=== PATIENT | female | born 1990 | race Caucasian/White ===

== ENCOUNTER → 2022-12-12 | Outpatient (CLI) | payer MEDICAID, SELFPAY ==
[2022-12-12 10:20] LABS: Absolute Lymphocyte Count 1.75 X10^3/uL (0.83-4.51); Absolute Neutrophil Count 3.5 X10^3/uL (2.0-7.7); Basophil# 0.05 X10^3/uL; Basophil% 0.9 % (0-1); Eosinophil# 0.06 X10^3/uL; Hematocrit 42.9 % (37-47); Hemoglobin 13.4 g/dL (12.0-15.0); Lymphocyte # 1.75 X10^3/ul (0.83-4.51); Lymphocyte % 29.8 % (19-41); Mean Corp Hgb Conc 31.2 g/dL (32-36); Mean Corpuscular Hgb 28.5 pg (27.0-32.0); Mean Corpuscular Volume 91.1 fL (81-99); Mean Platelet Vol. 9.9 fl (6.2-12.0); Monocyte# 0.51 X10^3/uL; Monocyte% 8.7 % (0-10); NRBC Flagged by Analyzer 0 % (0-5); Neutrophil # 3.49 X10^3/uL (2.7-7.7); Neutrophil % 59.3 % (47-70); Platelet Count 227 K/mm3 (150-450); RBC Distribution Width CV 14.6 % (11.6-14.6); RBC Distribution Width SD 49.4 fl (35.1-43.9); Red Blood Count 4.71 M/mm3 (4.2-5.4); White Blood Count 5.9 K/mm3 (4.4-11.0)
[2022-12-12 11:04] LABS: Vitamin D,25 Hydroxy 45.3 ng/mL
[2022-12-12 11:13] LABS: ALB/GLOB Ratio 0.9 RATIO (0.9-2.4); AST(SGOT) 17 U/L (15-37); Alanine Aminotransfer ALT/SGPT 21 U/L (13-56); Albumin, Serum 3.7 g/dL (3.2-5.0); Alkaline Phosphatase 58 U/L (45-117); Anion Gap 5 (5-15); BUN 12 mg/dL (7-18); Calcium,Total 8.9 mg/dL (8.5-10.1); Chloride 106 mmol/L (98-107); Cholesterol 193 mg/dL (200); Creatinine, Serum 0.92 mg/dL (0.55-1.02); EST Glomerular Filtration Rate 74 mL/min (>60); Est Glom Filt Rate - Afr Amer 90 mL/min (>60); Glucose 85 mg/dL (74-106); High Density Lipoprotein 58 mg/dL; Potassium 4.1 mmol/L (3.5-5.1); Protein, Total 7.7 g/dL (6.4-8.2); Sodium Level 136 mmol/L (136-145); Thyroid Stim Hormone (TSH) 3.32 uIU/mL (0.358-3.74); Triglycerides 87 mg/dL; Very Low Density Lipoprotein 17 mg/dL (5-40)
== END | disposition home or self-care (01) ==
PROVIDERS: PCP Family Medicine; Referring Provider Family Medicine; Visit Provider Family Medicine
DX: Z00.00 Encounter for general adult medical examination without abnormal findings (principal); Z13.1 Encounter for screening for diabetes mellitus; F41.9 Anxiety disorder, unspecified
CPT/HCPCS: 36415; 80053; 80061; 82306; 84443; 85025

== ENCOUNTER → 2023-10-10 | Outpatient (CLI) | payer MEDICAID, SELFPAY ==
--- NOTE | 2023-10-10 07:41 | US_ITS ---
STUDY: ABDOMINAL ULTRASOUND - RIGHT UPPER QUADRANT REASON FOR VISIT: Female, 33 years old Epigastric pain x 3 months TECHNIQUE: Ultrasound evaluation of the right upper quadrant was performed with real-time and static baxter-scale imaging. TECHNICAL QUALITY: Adequate. COMPARISON: None. FINDINGS: Liver: The liver measures 15.2 cm. There is normal echogenicity of the liver. The bile ducts are within normal limits. There is hepatic color flow. The direction of portal flow is hepatopetal. There is no demonstrated mass lesion. Gallbladder: Normal distended gallbladder. The gallbladder wall measures 1.9 mm. There is a negative sonographic Cisneros''s sign. There is no pericholecystic fluid. There are no gallstones. Common Bile Duct (C.B.D.): The common bile duct measures 2.7 mm. Pancreas: Normal size of the head, body and tail of the pancreas. There is normal echogenicity of the pancreas. There is no demonstrated pancreatic mass or cyst. Right Kidney: Normal size of the right kidney. The right kidney measures 10.7 cm x 5.6 x 4.9 cm. Normal renal cortex. The right cortex measures 1.5 cm. There is no demonstrated renal mass or cyst. There is no right hydronephrosis. US/Gallbladder IMPRESSION: Normal right upper quadrant ultrasound examination. Electronically Signed: Rito Becerril MD at 15:32 EDT ,
== END | disposition home or self-care (01) ==
LOC: US 07:34
PROVIDERS: PCP Family Medicine; Referring Provider Surgery; Visit Provider Surgery
DX: R10.13 Epigastric pain (principal)
CPT/HCPCS: 76705

== ENCOUNTER 2023-10-30 08:08 | Day surgery (SDC) | payer MEDICAID, SELFPAY ==
[2023-10-30] VITALS (8 sets, daily range): BP systolic 97–110; BP diastolic 64–74; PULSE 71–114; RESP 16–20; TEMP 36.8–37; O2SAT 96–100; BMI 23.0
--- NOTE | 2023-10-30 | GASB_PTH ---
PATIENT: JACY CARROLL LOC: EN U#:[id number] AGE/SX: 33/F ROOM: RE10/30/[address]: Dr. Percy Mccauley MD : 1990 BED: DIS: 10/30/2023 SPEC #: [id number] RECD: 10/30/23 12:23 STATUS: EMIR ILIANA #: [id number] PITER: 10/30/23 00:[address]: Percy Mccauley DEPT: SURGICAL PATHOLOGY RECD BY: Hayes Deleon ENTERED: 10/30/23 12:23 SP TYPE: Gastric Bx OTHR DR: Karen Black MD Tissues: Gastric mucous membrane Procedures: Surgery Specimen Level IV HEADER OPERATION: EGD with biopsy PRE-OP DIAGNOSIS: Epigastric pain TISSUE SUBMITTED: Antrum biopsy MICROSCOPIC DIAGNOSIS Gastric antrum, biopsy: Mild chronic inflammation. AM. 10/31/2023 COMMENT The results of immunohistochemistry for Helicobacter pylori will be reported separately ([id number]). MICROSCOPIC DESCRIPTION Slides are reviewed. GROSS DESCRIPTION Received in fixative is one container labeled with the patient's name and designated Antrum biopsy. The specimen consists of one irregular fragment of light zendejas soft tissue that measures 0.3 x 0.3 x 0.1 cm. The specimen is totally submitted in one cassette. 10/30/2023 TC:3 CPT:44525
[2023-10-30 08:38] LABS: Internal QC Validated? YES +Cl - CLEAR BKGD; Pregnancy, Urine Negative Negative
[2023-10-30] MEDS: Lactated Ringers 1,000 ML 15 ML IV (08:38)
--- NOTE | 2023-10-30 08:48 | PCM.PRE.AN2 ---
ASA Classification* ASA Classification ASA Classification: 2 Assessment & Plan Anesthesia* Anesthesia Assessment Anesthesia Assessment: Discussed sedation and/or anesthesia options, risks, benefits, and alternatives with patient/parents/legal guardian/POA. Questions invited. The patient/parents/legal guardian/POA seems to understand and agrees to proceed with anesthesia plan. Reviewed the physical assessment, medical history, allergy history and patient home medications list prior to surgery/procedure/anesthetic and documented any changes. Performed airway and anesthesia risk assessments. Anesthesia Type Anesthesia Type: MAC (see written pre anesthesia record for full assessment) Anesthesia Focused Assessment* Temperature: 98.2 F Pulse Rate: 71 Blood Pressure: 106/74 Respiratory Rate: 16 Pulse Ox: 100 Airway Assessment Mouth opens: >3 cm Mallampati Score: II Focused Labs Anesthesia Preop lab: CBC WBC 5.9 K/mm3 (4.4-11.0) 12/12/22 09:35 RBC 4.71 M/mm3 (4.2-5.4) 12/12/22 09:35 Hgb 13.4 g/dL (12.0-15.0) 12/12/22 09:35 Hct 42.9 % (37-47) 12/12/22 09:35 Plt Count 227 K/mm3 (150-450) 12/12/22 09:35 CHEMISTRY Potassium 4.1 mmol/L (3.5-5.1) 12/12/22 09:35 Sodium 136 mmol/L (136-145) 12/12/22 09:35 BUN 12 mg/dL (7-18) 12/12/22 09:35 Creatinine 0.92 mg/dL (0.55-1.02) 12/12/22 09:35 Glucose 85 mg/dL (74-106) 12/12/22 09:35 TSH 3.32 uIU/mL (0.358-3.74) 12/12/22 09:35 COAG Urine Test Negative Negative 10/30/23 08:22 Pre-Assessment Diagnosis/Proposed Procedure Planned Operative Procedure(s): EGD Anesthesia History Anesthesia History - senior research consultant: Anesthesia History - senior research consultant Hx Hospitalization No 10/24/23 10:54 Any Problems With Anesthesia No 10/24/23 10:54 Cholinesterase deficiency No 10/24/23 10:54 You/Your Family Experience No 10/24/23 10:54 fever (hyperthermia) with Relationship Recent Exposure to Contagious No 10/30/23 08:29 Disease Does patient have nerve No 10/24/23 10:54 stimulator Patient instructed to have device shut off --Does patient have Pacemaker No 10/30/23 08:29 or ICD? When Was Last Pacemaker Check QUESTION #4 FULL TEXT: You/Your Family Experience fever (hyperthermia) with Anesthesia Last Oral Intake Last Oral intake: Last Oral Intake NPO since 00:00 10/30/23 08:29 Meds taken in AM with sips of water? Meds patient instructed to take am of surgery PONV PONV - senior research consultant: PONV - senior research consultant Female Yes 10/24/23 10:54 HX of Motion Sickness Yes 10/24/23 10:54 HX of N/V After Surgery No 10/24/23 10:54 Non-Smoker Yes 10/24/23 10:54 Duration of Surgery greater No 10/24/23 10:54 than 60 minutes Number of Risk Factors 3 10/24/23 10:54 PONV Score Moderate Risk 10/24/23 10:54 Height & Weight Height & Weight: Anesthesia: Height & Weight Height 5 ft 3 in 10/30/23 08:29 Weight: 58.967 kg 10/30/23 08:29 Body Mass Index (BMI) 23.0 10/30/23 08:29 Respiratory Assessment Respiratory Assessment - senior research consultant: Respiratory Tract Infection Hx - senior research consultant Hx Respiratory Tract Infection No 10/24/23 10:54 STOP Sleep Apnea STOP Sleep Apnea - senior research consultant: STOP Sleep Apnea - senior research consultant Hx Hypertension No 10/24/23 10:54 Hx Sleep Apnea No 10/24/23 10:54 CPAP BIPAP Do you snore loudly (louder No 10/24/23 10:54 than talking or can be heard Do you often feel tired/ No 10/24/23 10:54 fatigued/ sleepy during daytime? Has anyone observed you stop No 10/24/23 10:54 breathing during sleep? STOP Results Negative 10/24/23 10:54 QUESTION #5 FULL TEXT : Do you snore loudly (louder than talking or can be heard through closed doors)? 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 Specify any problems Hx of Preganancy in last 3 No 10/24/23 10:54 Months Nurse Filling Out Transfusion VCHRISTIN 10/24/23 10:54 & Questions: Date: 10/24/23 10/24/23 10:54 Time: 10:56 10/24/23 10:54 Patient unable to answer at this time (ie. confused, unrespo /Reproduction History /Reproductive History - senior research consultant: /Reproductive Hx- senior research consultant Hx Now No 10/24/23 10:54 Gestational Age (in weeks): EDC: Hx Hx Para Hx Section SAB No 10/24/23 10:54 Active Medications Active Medications: Current Medications Generic Name Dose Route Start Last Admin Trade Name Freq PRN Reason Stop Dose Admin Lactated Ringer's 1,000 mls @ 15 mls/hr 10/30/23 08:15 10/30/23 08:38 IV 15 mls/hr .Q48H DON Administration PFSH Medical History Wears contact lenses Wears glasses Cancer Depression Anxiety History of ulceration Non-smoker Asthma History of deviated nasal septum Home Medications ?Medication ?Instructions ?Recorded ?Last Taken ?Type fluoxetine 40 mg capsule 40 mg PO DAILY 08/21/23 Unknown History ondansetron HCl 4 mg tablet 4 mg PO Q8H 08/21/23 Unknown History semaglutide (weight loss) 1 mg/0.5 1 mg subcut QWEEK 08/21/23 10/15/23 History mL subcutaneous pen injector albuterol sulfate 90 mcg/actuation 1 puff inhalation PRN wheezing 10/24/23 Unknown History aerosol inhaler Allergy/AdvReac Type Severity Reaction Status Date / Time Penicillins Allergy Severe Angioedema Verified 10/30/23 08:28 Family History Uncle Colon cancer Surgical History Hx of melanoma excision Hx of removal of cyst Social History Smoking Status: Never smoker Review of Systems (Anesthesia) ROS Narrative System reviewed and no additional complaints, except as documented.
--- NOTE | 2023-10-30 09:05 | HP.PCM_ITS ---
History and Physical Date of Admission: 10/30/23 Intake Vital Signs 09/17/2407:16 Height 5 ft 3 in Weight: 135 lb 6 oz BMI 24.0 BP 93/61 Blood Pressure Location Rt brachial Position Sitting Respiration 18 Pulse 55 L Pulse Source Monitor Temp 97.2 F L Temp Source Temporal Pulse Oximetry (%) 98 Oxygen Delivery Method room air Intake Visit Reasons: ABDOMINAL PAIN Chief Complaint: abdominal pain Booster Pump Oiler Required: No Is patient in pain?: Yes (constant abdominal pain ) Allergies Penicillins Allergy (Severe, Verified 09/17/23 08:17) Angioedema Medications ?Medication ?Instructions ?Recorded ?Confirmed ?Type fluoxetine 40 mg capsule 40 mg PO DAILY 08/21/23 09/17/23 History ondansetron HCl 4 mg tablet 4 mg PO Q8H 08/21/23 09/17/23 History semaglutide (weight loss) 1 mg/0.5 1 mg subcut QWEEK 08/21/23 09/17/23 History mL subcutaneous pen injector omeprazole 40 mg capsule,delayed 40 mg PO DAILY #60 caps 09/17/23 09/17/23 Rx release Have you fallen in the past year?: No PFSH Family History (Updated 09/17/23 @ 08:16 by Mariola Wynn LPN) Uncle Colon cancer HPI HPI HPI: Patient is a 33-year-old female who reports both upper epigastric pain and lower abdominal pain. She reports the pain does not have any new eating. She says it comes and goes. She said that she also did recently have black tarry stools and coffee-ground emesis. ROS General General: Yes weight change (loss) and fatigue; No appetite, colon cancer, breast cancer or weakness HEENT HEENT: Yes swollen glands; No difficulty swallowing, eye injury, eye surgery or hoarseness Endo Endocrine: No thyroid disease, diabetes mellitus, thyroid cancer, Hair loss, heat intolerance or cold intolerance Skin Skin: No rash or changing moles Musc Musculoskeletal: No back problems, arthritis, rheumatoid arthritis, gout or joint pain Cardio Cardiovascular: No murmur, pacemaker, heart disease, atrial fibrillation, high blood pressure, heart attack, heart stent, palpitations, shortness of breat with exertion or chest pain Psych Psychiatric: Yes depression and anxiety; No hearing voices Resp Respiratory: No shortness of breath, No sleep apnea, No cough, No COPD, Yes asthma, No emphysema and No wheezing Additional Details: exercise induced asthma Gastro Gastrointestinal: Yes abdominal pain, Yes nausea or vomiting, Yes diarrhea, Yes constipation, Yes blood in stool, No acid reflux, No hemorrhoids, Yes ulcers, No gallbladder problem and No black,tarry stools Alverto Hematologic: No blood thinners, No blood disorders, No bleeding, No anemia and No blood clots Neuro Neurologic: No numbness, No tingling and No weakness Exam Const General: cooperative Orientation: alert and oriented x3 HENMT Head: normal to inspection Neck Neck: normal visual inspection and full ROM Chest Chest palpation & inspection: normal inspection of the chest Resp Effort & Inspection: normal respiratory effort Auscultation: clear to auscultation bilaterally Cardio Rate: regular rate Rhythm: regular rhythm GI Inspection: non-distended Palpation: soft and nontender Skin General: no rashes or lesions noted Neuro General: patient alert and patient oriented x3 Extrem General: full ROM Psych Appearance: grossly normal Mental Status: mental status grossly normal Assessment and Plan Assessment and Plan (1) Epigastric pain: Status: Acute Plan: Patient is having a lot of epigastric pain and she did have coffee-ground emesis as well as black stools. She was started on Carafate but does not report this helped. I am starting her on a PPI immediately and I will also order a gallbladder ultrasound to ensure that this is not her gallbladder. We will plan for EGD to evaluate the stomach. I explained endoscopy in detail to the patient. I explained the risks including but not limited to stroke or heart attack with anesthesia, perforation of the GI tract, bleeding, infection. I explained that any of these could necessitate further emergency surgery. The patient understands and all questions were answered sufficiently. The patient wishes to proceed with procedure. Percy Mccauley MD Pager: [facility] [address] [place] [address], [address] [place] [address] Office: I have examined the patient and the H&P has been reviewed. There are no clinical changes since date of exam. The patient reports no improvement on a PPI. Her ultrasound of her gallbladder was normal.
--- NOTE | 2023-10-30 09:15 | IMM_PTH ---
PATIENT: JACY CARROLL LOC: EN U#:[id number] AGE/SX: 33/F ROOM: RE10/30/[address]: Dr. Percy Mccauley MD : 1990 BED: DIS: 10/30/2023 SPEC #: [id number] RECD: 10/30/23 12:19 STATUS: EMIR REDeepak #: [id number] PITER: 10/30/23 09:[address]: Percy Mccauley DEPT: IMMUNOHISTOCHEMISTRY RECD BY: Riley Lopez ENTERED: 10/30/23 12:19 SP TYPE: IMMUNO OTHR DR: Karen Black MD Tissues: Gastric mucous membrane Procedures: H Pylori (initial) PHYSICIAN & INSTITUTION [place] [id number] SPECIMEN INFORMATION: Tissue Source: Antrum biopsy Clinical Info: Epigastric pain Specimen Number: [id number] CPT code: 08393 METHODOLOGY: Deparaffinized sections of prefer/formalin-fixed tissue or PAP/DQ stained slides are incubated with monoclonal/polyclonal antibodies/oligonucleotide probes. Localization is made via biotin free immunoperoxidase method. Appropriate controls are performed and reacted as expected. Results on target cell population are indicated in the following table: RESULTS: ANTIBODY / CLONE RESULT H Pylori (polyclonal) negative These tests were developed and their performance characteristics determined by [facility]. They may not have been cleared or approved by the U.S. Food and Drug Administration. The FDA has determined that such clearance or approval is not necessary. The above immunohistochemical/dualISH markers are ordered and reviewed by the Pathologist. INTERPRETATION: Gastric antrum, biopsy: Negative for Helicobacter pylori organisms. 10/31/2023
--- NOTE | 2023-10-30 09:25 | OP.EGD_ITS ---
Patient Name: Sammie Guerrero Procedure Date: 10/30/2023 9:10 AM Date of : 1990 Age: 33 Procedure: Upper GI endoscopy Indications: Epigastric abdominal pain Providers: Percy Mccauley MD Medicines: Propofol per Anesthesia Patient Profile: This is a 33 year old female. Refer to note in patient chart for documentation of history and physical. Complications: No immediate complications. Procedure: Pre-Anesthesia Assessment: - Prior to the procedure, a History and Physical was performed, and patient medications and allergies were reviewed. The patient's tolerance of previous anesthesia was also reviewed. The risks and benefits of the procedure and the sedation options and risks were discussed with the patient. All questions were answered, and informed consent was obtained. Prior Anticoagulants: The patient has taken no anticoagulant or antiplatelet agents. After reviewing the risks and benefits, the patient was deemed in satisfactory condition to undergo the procedure. After obtaining informed consent, the endoscope was passed under direct vision. Throughout the procedure, the patient's blood pressure, pulse, and oxygen saturations were monitored continuously. The Endoscope was introduced through the mouth, and advanced to the second part of duodenum. The upper GI endoscopy was accomplished without difficulty. The patient tolerated the procedure well. Scope In: 9:19:17 AM Scope Out: 9:21:58 AM Total Procedure Duration Time 0 hours 2 minutes 41 seconds Findings: The esophagus was normal. The stomach was normal. The examined duodenum was normal. Biopsies were taken with a cold forceps in the gastric antrum for Helicobacter pylori testing. Impression: - Normal esophagus. - Normal stomach. - Normal examined duodenum. - No specimens collected. Recommendation: - Discharge patient to home. - Resume previous diet. - Continue present medications. - Perform CT scan (computed tomography) of the abdomen with contrast at appointment to be scheduled. Procedure Code(s): --- Professional --- 78218, Esophagogastroduodenoscopy, flexible, transoral; with biopsy, single or multiple Diagnosis Code(s): --- Professional --- R10.13, Epigastric pain CPT copyright 2021 [employer]. All rights reserved. The codes documented in this report are preliminary and upon outpatient coder review may be revised to meet current compliance requirements. Percy Mccauley MD 10/30/2023 9:24:26 AM This report has been signed electronically. Number of Addenda: 0 Note Initiated On: 10/30/2023 9:10 AM
--- NOTE | 2023-10-30 09:25 | OP.CCLET_ITS ---
10/30/2023 Karen Black Md Re : Upper GI endoscopy procedure for Sammie Pena Sofia This procedure was performed on Monday, October 30, 2023. My impressions and recommendations are as follows: Impressions : - Normal esophagus. - Normal stomach. - Normal examined duodenum. - No specimens collected. Recommendations : - Discharge patient to home. - Resume previous diet. - Continue present medications. - Perform CT scan (computed tomography) of the abdomen with contrast at appointment to be scheduled. My findings are described in the full procedure note, which is enclosed. If I can be of further assistance, please feel free to contact me at Doctor phone number(s): , Work: . Sincerely, Percy Mccauley MD 10/30/2023 9:24:26 AM This report has been signed electronically.
--- NOTE | 2023-10-30 09:32 | PCM.POST.ANE ---
Anesthesia: Postop Eval I Current Vital Signs Temperature: 98.6 F Pulse Rate: 114 Blood Pressure: 110/72 Respiratory Rate: 20 Pulse Ox: 100 Assessment Airway patent: Yes Spontaneous unlabored respirations: Yes nausea: No Vomiting: No Anesthesia Complication: No Fluid Hydration Crystalloid volume administer (ml): 400 Total IV fluid infused: 400 Progress Note Anesthesia document: Postop Eval 1 completed: Yes
[2023-10-30 10:25] LABS: Lipase 34 U/L (13-75)
--- NOTE | 2023-10-30 12:12 | POSTOPAN2_ITS ---
Anesthesia Postop Eval I Sum Postop Eval Completion status Anesthesia document: Postop Eval 1 completed: Yes Anesthesia Postop Eval I Summary Anesthesia Postop Eval I Summary: Anesthesia Postop Eval I: Assessment Summary Airway patent Yes 10/30/23 09:32 REDUCTION FURNACE OPERATOR HELPER.CSIR Spontaneous unlabored Yes 10/30/23 09:32 REDUCTION FURNACE OPERATOR HELPER.CSIR respirations Mental status nausea No 10/30/23 09:32 REDUCTION FURNACE OPERATOR HELPER.CSIR Vomiting No 10/30/23 09:32 REDUCTION FURNACE OPERATOR HELPER.CSIR Anesthesia Postop Eval I: Fluid Summary Crystalloid volume administer 400 10/30/23 09:32 REDUCTION FURNACE OPERATOR HELPER.CSIR (ml) Colloids volume administered ( ml) Blood Product volume administered (ml) Total IV fluid infused 400 10/30/23 09:32 REDUCTION FURNACE OPERATOR HELPER.CSIR Anesthesia Postop Eval I: Summary Notes Anesthesia Complication No 10/30/23 09:32 REDUCTION FURNACE OPERATOR HELPER.CSIR Anesthesia Complication Comment: Post-operative progress note Anesthesia: Postop Eval II Evaluation Mental status: Awake Pain Level: 0 nausea: No Vomiting: No
--- NOTE | 2023-10-30 12:12 | PCM.POSTANE2 ---
Anesthesia Postop Eval I Sum Postop Eval Completion status Anesthesia document: Postop Eval 1 completed: Yes Anesthesia Postop Eval I Summary Anesthesia Postop Eval I Summary: Anesthesia Postop Eval I: Assessment Summary Airway patent Yes 10/30/23 09:32 CAFETERIA WORKER.CSIR Spontaneous unlabored Yes 10/30/23 09:32 CAFETERIA WORKER.CSIR respirations Mental status nausea No 10/30/23 09:32 CAFETERIA WORKER.CSIR Vomiting No 10/30/23 09:32 CAFETERIA WORKER.CSIR Anesthesia Postop Eval I: Fluid Summary Crystalloid volume administer 400 10/30/23 09:32 CAFETERIA WORKER.CSIR (ml) Colloids volume administered ( ml) Blood Product volume administered (ml) Total IV fluid infused 400 10/30/23 09:32 CAFETERIA WORKER.CSIR Anesthesia Postop Eval I: Summary Notes Anesthesia Complication No 10/30/23 09:32 CAFETERIA WORKER.CSIR Anesthesia Complication Comment: Post-operative progress note Anesthesia: Postop Eval II Evaluation Mental status: Awake Pain Level: 0 nausea: No Vomiting: No
== END 2023-10-30 10:20 | disposition home or self-care (01) ==
LOC: EN 08:11 → AC 08:12
PROVIDERS: Anesthesiology; PCP Family Medicine; Referring Provider Family Medicine; Visit Provider Surgery
PROC: 0DJ08ZZ Inspection of Upper Intestinal Tract, Via Natural or Artificial Opening Endoscopic (ICD-10-PCS; CPT 43235; principal; 2023-10-30 09:10)
DX: K29.50 Unspecified chronic gastritis without bleeding (principal); F32.A Depression, unspecified; F41.9 Anxiety disorder, unspecified; Z79.85 Long-term (current) use of injectable non-insulin antidiabetic drugs; Z79.899 Other long term (current) drug therapy
CPT/HCPCS: 43239; 81025; 83690; 88305; 88342; J7120; J2405

== ENCOUNTER → 2024-11-20 | Outpatient (CLI) | payer OTHER, SELFPAY ==
[2024-11-20 12:37] LABS: Hematocrit 36.3 % (37-47); Hemoglobin 11.9 g/dL (12.0-15.0); Immature Granulocytes Count 0.010 X10^3/uL (0.0-0.0); Mean Corp Hgb Conc 32.8 g/dL (32-36); Mean Corpuscular Volume 87.5 fL (81-99); Mean Platelet Vol. 9.9 fl (6.2-12.0); NRBC Flagged by Analyzer 0 % (0-5); Platelet Count 228 K/mm3 (150-450); RBC Distribution Width CV 14.7 % (11.6-14.6); RBC Distribution Width SD 47.7 fl (35.1-43.9); Red Blood Count 4.15 M/mm3 (4.2-5.4); White Blood Count 4.7 K/mm3 (4.4-11.0)
[2024-11-20 15:51] LABS: AST(SGOT) 23 U/L (<=31); Alanine Aminotransfer ALT/SGPT 12 U/L (<=34); Albumin, Serum 4.1 g/dL (3.5-5.0); Alkaline Phosphatase 55 U/L (35-104); Anion Gap 11 (5-15); BUN 14 mg/dL (4-19); BUN/Creat Ratio 17.3 RATIO (10-20); Calcium,Total 8.9 mg/dL (7.6-11.0); Carbon Dioxide 24.4 mmol/L (21.0-32.0); Chloride 103 mmol/L (98-108); Cholesterol 169 mg/dL (<=200); Globulin 2.9 g/dL (2.2-4.2); Glucose 80 mg/dL (70-99); Low Density Lipoprotein Calc. 87 mg/dL; Potassium 4.2 mmol/L (3.3-5.1); Triglycerides 38 mg/dL; Very Low Density Lipoprotein 8 mg/dL (5-40); cholesterol:hdl ratio screen 2.27
[2024-11-20 16:14] LABS: Iron 35 ug/dL (50-170); Iron Binding Capacity,Total 405 ug/dL (250-450); Iron Binding Capacity,Unsat 370 ug/dL (228-428)
[2024-11-20 16:15] LABS: CORTISOL AM 7.61 ug/dL (6.02-18.40); Ferritin 15 ng/mL (22-378); Vitamin B12 601 pg/mL (180-914); Vitamin D,25 Hydroxy 42.5 ng/mL (30-100)
--- OUTSIDE RECORDS SUMMARY | 2024-11-20 18:53 | XMS RPT_ITS | CCD ---
Author Organization [facility] Care Team Providers Care Business Sales Consultant Name Role Phone Unavailable Primary Care Provider UnavailEILEEN Guzman Attending Unavailable Karen Gupta MD Primary Care Provider Karen Gupta MD Primary Care Provider Unavailable Primary Care Provider Unavailjavier e Karen Gupta Primary Care Provider [phone] Karen Gupta MD Primary Care Provider Karen Gupta MD Primary Care Provider CANDY, CHALON Primary Care Unavailable CANDY, CHALON Primary Care Unavailable Karen Gupta MD Primary Care Provider Candy, Chalon Primary Care Unavailable Candy, Chalon Referring Unavailable Calabretta, Percy Attending Unavailable Calabretta, Percy Attending Unavailable Candy, Chalon Primary Care Unavailable Calabretta, Percy Referring Unavailable Candy, Chalon Attending Unavailable Candy, Chalon Primary Care Unavailable Candy, Chalon Referring Unavailable Calabretta, Percy Attending Unavailable Candy, Chalon Primary Care Unavailable Calabretta, Percy Referring Unavailable Candy, Chalon Primary Care Unavailable Candy, Chalon Referring Unavailable Calabretta, Percy Attending Unavailable Candy, Chalon Referring Unavailable Calabretta, Percy Attending Unavailable Candy, Chalon Primary Care Unavailable Calabretta, Percy Consulting Unavailable Candy, Chalon Referring Unavailable Lois Arzola Attending Unavailable Candy, Chalon Primary Care Unavailable Unavailable Primary Care Provider UnavailKaren Montanez MD Primary Care Provider Karen Gupta MD Primary Care Provider SHARRI KOEHLER Attending Unavailable ZAKIASHARRI Corcoran Referring Unavailable [facility] Care Unavailable ZAKIASHARRI Corcoran Referring Unavailable CANDY, CHALON Primary Care Unavailable CANDY, CHALON Primary Care Unavailable DEANN JARVIS Attending Unavailable GOGO GRANDE Attending Unavailable [facility], [facility] Primary Care Unavailable GOGO CESPEDES Attending Unavaila ble CANDY, CHALON Primary Care Unavailable Allergies Allergy Classification Reported Allergen(s) Allergy Type Date of Onset Reaction(s) Facility Penicillins (antibiotic) (3 sources) Penicillin G Drug Allergy 7 Anaphylaxis [facility] (17 sources) Penicillin G Drug Allergy 7 Anaphylaxis [place], [place] (19 sources) Penicillin; Translations: [PENICILLIN] Drug Allergy 7 Other: See Comments [facility] (1 source) Penicillins Drug allergy (disorder) 4 [facility] (1 source) Penicillins Propensity to adverse reactions 9 [facility] Medications Current Medications Medication Drug Class(es) Dates Sig (Normalized) Sig (Original) acetaminophen 325 mg / HYDROcodone bitartrate 5 mg oral tablet (2 sources) Opioid Agonist Start: 10-08-2020 End: 10-13-2020 HYDROcodone-acetam inophen (NORCO) 5-325 MG per tablet Indications: Post-op pain Take 1 tablet by mouth every 6 hours as needed for Pain for up to 5 days. Intended supply: 5 days. Take lowest dose possible to manage pain 20 tablet 0 10/08/2020 10/13/2020 Active ALPRAZolam 0.25 mg disintegrating oral tablet (2 sources) Benzodiazepine Start: 10-08-2020 ALPRAZolam (NIRAVAM) dissolvable tablet 0.25 mg Start: 04-30-2019 ALPRAZolam (NI RAVAM) dissolvable tablet 0.25 mg atomoxetine 60 mg oral capsule (1 source) Norepinephrine Reuptake Inhibitor Start: 01-26-2009 atomoxetine hcl(STRATTERA 60 MG CAP) Take one(1) capsule daily. 0 01/26/2009 Active biotin 1 mg oral tablet (2 sources) take 1 tablet by mouth once daily Biotin 1000 MCG TABS Take 1 tablet by mouth daily 0 Active 24 hr buPROPion hydrochloride 150 mg extended release oral tablet (20 sources) Aminoketone Start: 04-06-2022 End: 05-10-2022 take 1 tablet by mouth once daily in the morning buPROPion XL (Wellbutrin XL) 150 MG 24 hr tablet TAKE 1 TABLET BY MOUTH EVERY DAY IN THE MORNING 30 tablet 3 05/10/2022 Active Start: 01-04-2022 End: 12-11-2022 take 1 tablet by mouth every twenty-four hours buPROPion XL (WELLBUTRIN XL) 150 mg 24 hr tablet Take 150 mg by mouth. 0 01/04/2022 12/11/2022 Discontinued (Other) Comment on above: Take 150 mg by mouth . busPIRone hydrochloride 5 mg oral tablet (10 sources) Start: 05-03-2022 End: 06-02-2022 busPIRone (BUSPAR) 5 mg tablet Take 10 mg by mouth. 0 05/03/2022 06/02/2022 Active Start: 02-02-2022 End: 05-03-2022 take 1 tablet by mouth three times daily busPIRone (Buspar) 5 MG tablet TAKE 1 TABLET BY MOUTH THREE TIMES A DAY 90 tablet 3 02/02/2022 05/03/2022 Discontinued (Reorder) Comment on above: Take 10 mg by mouth. calcium chloride 0.0014 meq/ml / potassium chloride 0.004 meq/ml / sodium chloride 0.103 meq/ml / sodium lactate 0.028 meq/ml injectable solution (2 sources) Start: 10-08-2020 lactated ringers infusion Start: 04-30-2019 lactated ringe rs infusion cefdinir 300 mg oral capsule (2 sources) Cephalosporin Antibacterial Start: 10-08-2020 End: 10-18-2020 take 1 capsule by mouth twice daily cefdinir (OMNICEF) 300 MG capsule Take 1 capsule by mouth 2 times daily for 10 days 20 capsule 0 10/08/2020 10/18/2020 Active codeine phosphate 2 mg/ml / guaiFENesin 20 mg/ml oral solution (1 source) Opioid Agonist Start: 02-09-2020 End: 02-12-2020 take 5 mL by mouth three times daily as needed for cough guaiFENesin-codein e (TUSSI-ORGANIDIN NR) 100-10 MG/5ML syrup Indications: Viral illness Take 5 mLs by mouth 3 times daily as needed for Cough for up to 3 days. 45 mL 0 02/09/2020 02/12/2020 Active COMPOUNDED PRESCRIPTION (1 source) Start: 01-26-2009 COMPOUNDED PRESCRIPTION Lo Seasonique 1 tablet daily 0 01/26/2009 Active doxycycline monohydrate 100 mg oral capsule (18 sources) Tetracycline-class Drug Start: 04-15-2023 End: 04-22-2023 take 1 capsule by mouth twice daily doxycycline monohydrate (MONODOX) 100 mg capsule Indications: URI with cough and congestion Take 1 capsule by mouth two times a day for 7 days. 14 capsule 0 04/15/2023 04/22/2023 Active Start: 05-11-2021 End: 06-23-2022 take 1 tablet by mouth twice daily doxycycline (Vibra-Tabs) 100 MG tablet Take 100 mg by mouth 2 times daily. 05/11/2021 Active Start: 06-03-2020 End: 10-08-2020 Doxycycline Hyclate 50 MG TA BS Indications: Acne vulgaris Take one tablet QD with food and water 30 tablet 3 06/03/2020 10/08/2020 Discontinued (Stop Taking at Discharge) Comment on above: Take 100 mg by mouth . Take 1 capsule by [facility] two times a day for 7 days. famotidine 20 mg oral tablet (3 sources) Histamine-2 Receptor Antagonist Start: 07-07-2023 End: 07-17-2023 take 1 tablet by mouth twice daily famotidine (PEPCID) 20 mg tablet Take 1 tablet by mouth two times a day for 10 days. 20 tablet 0 07/07/2023 07/17/2023 Active Start: 10-08-2020 End: 10-08-2020 famotidine (PEPCID) tablet 2 0 mg Start: 04-30-2019 End: 04-30-2019 famotidine (PEPCID) tablet 2 0 mg fluconazole 150 mg oral tablet (3 sources) Azole Antifungal Start: 07-09-2023 take 1 tablet by mouth every week fluconazole (DIFLUCAN) 150 mg tablet Indications: Vaginal yeast infection Take 1 tablet by mouth one time a week. repeat if needed in one week 2 tablet 07/09/2023 Active FLUoxetine 20 mg oral tablet (11 sources) Serotonin Reuptake Inhibitor Start: 01-25-2023 FLUoxetine HCl 20 mg tablet 01/25/2023 Active Start: 07-12-2021 End: 12-15-2021 take 1 capsule by mouth once daily FLUoxetine (PROZAC) 20 MG capsule TAKE 1 CAPSULE BY MOUTH EVERY DAY 90 capsule 1 11/24/2021 Active fluticasone propionate 0.05 mg/actuat metered dose nasal spray (5 sources) Corticosteroid Start: 07-08-2020 take 1 spray(s) nasal route once daily fluticasone (FLONASE) 50 MCG/ACT nasal spray Indications: Acute non-recurrent sinusitis, unspecified location 1 spray by Each Nostril route daily for 14 days 1 Bottle 0 07/08/2020 Active Start: 08-01-2018 End: 04-25-2019 fluticasone (FLONASE) 50 MCG /ACT nasal spray Indications: Viral URI 1 spray by Nasal route daily 1 Bottle 0 08/01/2018 04/25/2019 Discontinued (Therapy completed) 12 hr guaiFENesin 600 mg extended release oral tablet (3 sources) Start: 07-08-2020 take 1 tablet by mouth twice daily guaiFENesin (MUCINEX) 600 MG extended release tablet Indications: Acute non-recurrent sinusitis, unspecified location Take 1 tablet by mouth 2 times daily 20 tablet 0 07/08/2020 Active 1 ml hydrALAZINE hydrochloride 20 mg/ml injection (2 sources) Arteriolar Vasodilator Start: 10-08-2020 hydrALAZINE (APRESOLINE) injection 5 mg Start: 04-30-2019 hydrALAZINE (A PRESOLINE) injection 5 mg 1 ml HYDROmorphone hydrochloride 1 mg/ml cartridge (4 sources) Opioid Agonist Start: 10-08-2020 HYDROmorphone (DILAUDID) injection 0.5 mg Start: 10-08-2020 HYDROmorphone (DILAUDID) injection 0.25 mg Start: 04-30-2019 HYDROmorphone (DILAUDID) injection 0.5 mg Start: 04-30-2019 HYDROmorphone (DILAUDID) injection 0.25 mg hydrOXYzine hydrochloride 25 mg oral tablet (5 sources) Antihistamine Start: 05-03-2022 End: 06-02-2022 take 1 tablet by mouth twice daily hydrOXYzine HCl (Atarax) 25 MG tablet Take 1 tablet (25 mg) by mouth 2 times daily. 60 tablet 0 05/03/2022 06/02/2022 Active ipratropium bromide 0.021 mg/actuat metered dose nasal spray (2 sources) Anticholinergic Start: 07-12-2021 take 2 spray(s) nasal route every twelve hours ipratropium (ATROVENT) 0.03 % nasal spray 2 sprays by Each Nostril route every 12 hours 30 mL 3 07/12/2021 Active labetalol hydrochloride 5 mg/ml injectable solution (2 sources) beta-Adrenergic Tanja Start: 10-08-2020 labetalol (NORMODYNE;TRANDA TE) injection 5 mg Start: 04-30-2019 labetalol (NOR MODYNE;TRANDATE) injection 5 mg levonorgestrel 0.439641 mg/hr intrauterine system (1 source) Progestin, Progestin-containing Intrauterine Device Start: 06-23-2022 End: 06-23-2022 levonorgestrel 17.5 mcg/24 hrs (5 yrs) 19.5 mg 1 Each intrauterine device (KYLEENA) 10 ml lidocaine hydrochloride 10 mg/ml injection (2 sources) Antiarrhythmic, Amide Local Anesthetic Start: 10-08-2020 End: 10-08-2020 lidocaine PF 1 % injection 1 mL Start: 04-30-2019 End: 04-30-2019 lidocaine PF 1 % injection 1 mL 1 ml meperidine hydrochloride 25 mg/ml cartridge (2 sources) Opioid Agonist Start: 10-08-2020 meperidine (DE MEROL) injection 12.5 mg Start: 04-30-2019 meperidine (DE MEROL) injection 12.5 mg metaxalone 800 mg oral tablet (1 source) Start: 12-04-2018 End: 12-14-2018 take 1 tablet by mouth three times daily as needed for pain metaxalone (SKELAXIN) 800 MG tablet Take 1 tablet by mouth 3 times daily as needed for Pain 15 tablet 0 12/04/2018 12/14/2018 Active methylPREDNISolone 4 mg oral tablet (2 sources) Corticosteroid Start: 10-08-2020 End: 10-14-2020 methylPREDNISolone (MEDROL DOSEPACK) 4 MG tablet Take by mouth. 1 kit 0 10/08/2020 10/14/2020 Active Multiple Vitamin (MULTI-VITAMIN DAILY PO) (3 sources) Multiple Vitamin (MULTI-VITAMIN DAILY PO) Take by mouth daily 0 Active mupirocin 0.02 mg/mg topical ointment (4 sources) RNA Synthetase Inhibitor Antibacterial Start: 06-15-2023 mupirocin (BACTROBAN) 2 % ointment Indications: Skin lesion Apply to affected area three times a day. 15 g 06/15/2023 Active Comment on above: Apply to affected ar ea three times a day. nitrofurantoin, macrocrystals 25 mg / nitrofurantoin, monohydrate 75 mg oral capsule (1 source) Nitrofuran Antibacterial Start: 08-23-2022 End: 08-30-2022 take 1 capsule by mouth twice daily nitrofurantoin monohydrate and macrocrystal (MACROBID) 100 mg capsule Indications: Dysuria Take 1 capsule by mouth twice daily for 7 days. 14 capsule 0 08/23/2022 08/30/2022 Active Comment on above: Take 1 capsule by [facility] twice daily for 7 days. oxyCODONE (1 source) Opioid Agonist Start: 04-30-2019 End: 04-30-2019 oxyCODONE (ROXICODONE) immediate release tablet 5 mg oxymetazoline hydrochloride 0.5 mg/ml nasal spray (2 sources) Start: 10-09-2020 End: 10-12-2020 oxymetazoline (12 HOUR NASAL SPRAY) 0.05 % nasal spray 2 sprays by Nasal route 2 times daily as needed for Congestion 3 day maximum use. 1 Bottle 0 10/09/2020 10/12/2020 Active Start: 10-09-2020 End: 10-09-2020 oxymetazoline (AFRIN) 0.05 % nasal spray 2 spray pantoprazole 40 mg delayed release oral tablet (3 sources) Proton Pump Inhibitor Start: 03-18-2024 End: 09-14-2024 take 1 tablet by mouth once daily before mealtime pantoprazole DR (PROTONIX) 40 mg tablet Take 1 tablet by mouth every morning. Take 30 mins before meals 90 tablet 1 03/18/2024 09/14/2024 Active phenazopyridine hydrochloride 200 mg oral tablet (1 source) Start: 08-23-2022 End: 08-26-2022 take 1 tablet by mouth three times daily as needed phenazopyridine (PYRIDIUM) 200 mg tablet Indications: Dysuria Take 1 tablet by mouth three times daily as needed for up to 3 days. 9 tablet 0 08/23/2022 08/26/2022 Active Comment on above: Take 1 tablet by ting three times daily as needed for up to 3 days. 24 hr phentermine 7.5 mg / topiramate 46 mg extended release oral capsule (1 source) Sympathomimetic Amine Anorectic Start: 05-11-2022 End: 06-10-2022 take 1 tablet by mouth once daily Phentermine-Topiram ate 7.5-46 MG capsule sustained-release 24 hr Indications: Overweight (BMI 25.0-29.9) Take 1 tablet by mouth daily. 30 capsule 0 05/11/2022 06/10/2022 Active polyethylene glycol 3350 82293 mg powder for oral solution (2 sources) Osmotic Laxative Start: 03-18-2024 End: 06-16-2024 polyethylene glycol 3350 (MIRALAX) 17 gram/dose powder Take 17 g by mouth once daily. Dissolve dose in 4 - 8 ounces of liquid and take as directed. 510 g 2 03/18/2024 06/16/2024 Active polymyxin b 47998 unt/ml / trimethoprim 1 mg/ml ophthalmic solution (2 sources) Dihydrofolate Reductase Inhibitor Antibacterial, Polymyxin-class Antibacterial Start: 12-11-2022 End: 12-18-2022 take 1 drop(s) into the eye(s) four times daily trimethoprim-polymy bronson (POLYTRIM) 10,000 unit- 1 mg/mL ophthalmic solution Indications: Irritation of right eye Use 1 Drop in the right eye four times daily for 7 days. 1.4 mL 0 12/11/2022 12/18/2022 Active Start: 12-11-2022 End: 12-11-2022 take 1 drop(s) into the eye(s) every four hours trimethoprim-polymyxin (POLYTRIM) 10,000 unit- 1 mg/mL ophthalmic solution Indications: Irritation of right eye Use 1 Drop in the right eye every 4 hours for 7 days. 2.1 mL 0 12/11/2022 12/11/2022 Discontinued (Course of therapy completed) Comment on above: Use 1 Drop in the ri ght eye four times daily for 7 days. Use 1 Drop in the ri ght eye every 4 hours for 7 days. promethazine hydrochloride 25 mg oral tablet (4 sources) Phenothiazine Start: 07-07-19 End: 07-12-19 take 1 tablet by mouth every six hours as needed promethazine (PHENERGAN) 25 mg tablet Take 1 tablet by mouth every 6 hours as needed for nausea/vomiting for up to 5 days. 20 tablet 0 07/07/2023 07/12/2023 Active Start: 10-08-2020 End: 10-08-2020 promethazine (PHENERGAN) inj ection 6.25 mg Start: 04-30-2019 End: 04-30-2019 promethazine (PHENERGAN) inj ection 6.25 mg Start: 01-26-2009 promethazine h cl(PHENERGAN 25 MG TAB) Indications: Nausea Take one(1) tablet every four(4) to six(6) hours as needed for nausea. 30 0 01/26/2009 Active semaglutide, weight loss, (WEGOVY) 0.5 mg/0.5 mL pen injector (3 sources) inject 0.5 mg by subcutaneous injection every week semaglutide, weight loss, (WEGOVY) 0.5 mg/0.5 mL pen injector Inject 0.5 mg subcutaneously one time a week. Active inject 0.5 mg by sub cutaneous injection every week semaglutide, weight loss, (WEGOVY) 0.5 mg/0.5 mL pen injector Inject 0.5 mg subcutaneously one time a week. 0 Active sertraline 25 mg oral tablet (14 sources) Serotonin Reuptake Inhibitor Start: 10-22-2021 End: 12-15-2021 take 1 tablet by mouth in the morning sertraline (ZOLOFT) 25 MG tablet Indications: Anxiety , Moderate episode of recurrent major depressive disorder (HCC) Take 1 tablet by mouth in the morning. 30 tablet 3 10/22/2021 12/15/2021 Discontinued (LIST CLEANUP) Start: 08-08-2021 End: 05-08-2022 take 0.5 tablet by mouth once daily sertraline (ZOLOFT) 50 mg tablet Indications: Anxiety TAKE 1/2 TABLET BY MOUTH EVERY DAY 45 tablet 2 08/08/2021 05/08/2022 Discontinued (Other) Start: 06-27-2021 End: 08-08-2021 take 0.5 tablet by mouth once daily sertraline (ZOLOFT) 50 mg tablet Indications: Anxiety TAKE 1/2 TABLET BY MOUTH ONCE DAILY 15 tablet 0 07/20/2021 08/08/2021 Discontinued Start: 06-26-2018 End: 04-25-2019 take 1 tablet by mouth once daily sertraline (ZOLOFT) 50 MG tablet TK 1 T PO D 10 06/26/2018 04/25/2019 Discontinued (DOSE ADJUSTMENT) take 1 tablet by ting th once daily sertraline (ZOLOFT) 100 MG tablet Take 100 mg by mouth daily 0 Active Comment on above: TAKE 1/2 TABLET BY M OUTH ONCE DAILY Take 0.5 tablets by mouth once daily. TAKE 1/2 TABLET BY M OUTH EVERY DAY sulfacetamide sodium 100 mg/ml / sulfur 50 mg/ml topical lotion (4 sources) Sulfonamide Antibacterial Start: 06-03-2020 Sulfacetamide Sodium-Sulfur (AVAR CLEANSER) 10-5 % EMUL Indications: Acne vulgaris Use to cleanse the face once per day 1 Bottle 2 06/03/2020 Active Start: 01-01-2020 Sulfacetamide Sodium-Sulfur (AVAR CLEANSER) 10-5 % EMUL Indications: Acne vulgaris Use to cleanse the face once per day 1 Bottle 2 01/01/2020 Active terconazole 8 mg/ml vaginal cream (3 sources) Azole Antifungal Start: 07-06-2022 End: 07-09-2022 terconazole vaginal cream (TERAZOL) 0.8 % vaginal cream Indications: Breakthrough bleeding associated with intrauterine device (IUD) Use 1 Applicator vaginally daily at bedtime for 3 days. 20 g 0 07/06/2022 07/09/2022 Active Start: 05-08-2022 End: 05-11-2022 terconazole vaginal cream (T ERAZOL) 0.8 % vaginal cream Indications: Recurrent vaginitis Use 1 Applicator vaginally daily at bedtime for 3 days. 20 g 6 05/08/2022 05/11/2022 Comment on above: Use 1 Applicator vag inally daily at bedtime for 3 days. tretinoin 0.25 mg/ml topical cream (4 sources) Retinoid Start: 06-03-2020 tretinoin (RETIN-A) 0.025 % cream Indications: Acne vulgaris Apply thin layer to the face every third night, increase to nightly as tolerated. 45 g 2 06/03/2020 Active Start: 01-01-2020 tretinoin (RET IN-A) 0.025 % cream Indications: Acne vulgaris Apply thin layer to the face every third night, increase to nightly as tolerated. 45 g 2 01/01/2020 Active Completed/Discontinued Medications Medication Drug Class(es) Dates Sig (Normalized) Sig (Original) acetaminophen 500 mg oral tablet (7 sources) Start: 10-18-2021 End: 10-18-2021 acetaminophen (TYLENOL) tablet 1,000 mg Start: 08-01-2021 End: 08-01-2021 acetaminophen (TYLENOL) tabl et 650 mg Start: 10-08-2020 End: 10-09-2020 acetaminophen (TYLENOL) tabl et 1,000 mg Start: 04-30-2019 acetaminophen (TYLENOL) tablet 1,000 mg take 2 tablets by mo uth every six hours as needed for pain acetaminophen (TYLENOL) 500 MG tablet Take 1,000 mg by mouth every 6 hours as needed for Pain 0 Active azithromycin 250 mg oral tablet (2 sources) Macrolide Antimicrobial Start: 08-01-2018 End: 04-25-2019 azithromycin (ZITHROMAX Z-CHAPIN) 250 MG tablet Take as directed: 2 tablets once daily on day one, then 1 tablet once daily on days two through five 1 packet 0 08/01/2018 04/25/2019 Discontinued (Therapy completed) dexamethasone 4 mg oral tablet (1 source) Corticosteroid Start: 10-18-2021 End: 10-18-2021 dexamethasone (DECADRON) tablet 4 mg 1 ml diphenhydrAMINE hydrochloride 50 mg/ml cartridge (3 sources) Histamine-1 Receptor Antagonist Start: 12-15-2021 End: 12-15-2021 diphenhydrAMINE (BENADRYL) injection 25 mg Start: 10-08-2020 End: 10-08-2020 diphenhydrAMINE (BENADRYL) i njection 12.5 mg Start: 04-30-2019 End: 04-30-2019 diphenhydrAMINE (BENADRYL) i njection 12.5 mg Ethinyl Estradiol / Ferrous fumarate / Norethindrone (3 sources) Estrogen Start: 08-07-2022 End: 12-11-2022 take 1 tablet by mouth once daily BLISOVI 24 FE 1 mg-20 mcg (24)/75 mg (4) Indications: Breakthrough bleeding with IUD TAKE 1 TABLET BY MOUTH ONCE DAILY 28 tablet 0 08/07/2022 12/11/2022 Discontinued (Course of therapy completed) Start: 08-07-2022 take 1 tablet by ting th once daily BLISOVI 24 FE 1 mg-20 mcg (24)/75 mg (4) Indications: Breakthrough bleeding with IUD TAKE 1 TABLET BY MOUTH ONCE DAILY 28 tablet 0 08/07/2022 Active Comment on above: TAKE 1 TABLET BY TING TH ONCE DAILY 2 ml fentaNYL 0.05 mg/ml injection (5 sources) Opioid Agonist Start: 08-01-2021 End: 08-01-2021 fentaNYL (SUBLIMAZE) injection 50 mcg Start: 10-08-2020 fentaNYL (SUBL IMAZE) injection 50 mcg Start: 10-08-2020 fentaNYL (SUBL IMAZE) injection 25 mcg Start: 04-30-2019 fentaNYL (SUBL IMAZE) injection 50 mcg Start: 04-30-2019 fentaNYL (SUBL IMAZE) injection 25 mcg gabapentin 100 mg oral capsule (2 sources) Anti-epileptic Agent Start: 10-08-2020 End: 10-08-2020 gabapentin (NEURONTIN) capsule 100 mg Start: 04-30-2019 End: 04-30-2019 gabapentin (NEURONTIN) capsu le 300 mg ibuprofen 600 mg oral tablet (6 sources) Nonsteroidal Anti-inflammatory Drug Start: 10-09-2020 End: 10-09-2020 ibuprofen (ADVIL;MOTRIN) tablet 600 mg Start: 04-30-2019 take 1 tablet by ting th four times daily as needed for pain ibuprofen (ADVIL;MOTRIN) 600 MG tablet Take 1 tablet by mouth 4 times daily as needed for Pain 30 tablet 1 04/30/2019 Active Start: 08-01-2018 End: 04-25-2019 take 1 tablet by mouth every six hours as needed for pain ibuprofen (ADVIL;MOTRIN) 800 MG tablet Indications: Sore throat Take 1 tablet by mouth every 6 hours as needed for Pain Take with food. 30 tablet 0 08/01/2018 04/25/2019 Discontinued (Therapy completed) End: 04-30-2019 take 2 tablets by mouth every eight hours as needed for pain ibuprofen (ADVIL;MOTRIN) 200 MG tablet Take 400 mg by mouth every 8 hours as needed for Pain 0 04/30/2019 Discontinued (Stop Taking at Discharge) iopamidol (ISOVUE-370) 76 % injection 90 mL (1 source) Start: 08-01-2021 End: 08-01-2021 iopamidol (ISOVUE-370) 76 % injection 90 mL 1 ml ketorolac tromethamine 30 mg/ml cartridge (1 source) Nonsteroidal Anti-inflammatory Drug, Cyclooxygenase Inhibitor Start: 02-09-2020 End: 02-09-2020 ketorolac (TORADOL) injection 30 mg Start: 02-09-2020 End: 02-09-2020 ketorolac (TORADOL) injectio n 30 mg meloxicam 15 mg oral tablet (5 sources) Nonsteroidal Anti-inflammatory Drug Start: 05-27-2020 End: 05-08-2022 take 1 tablet by mouth once daily at mealtime meloxicam (MOBIC) 15 mg tablet TAKE 1 TABLET BY MOUTH DAILY WITH FOOD. 30 tablet 1 07/29/2020 05/08/2022 Discontinued (Other) Comment on above: TAKE 1 TABLET BY TING TH DAILY WITH FOOD. 2 ml metoclopramide 5 mg/ml prefilled syringe (2 sources) Dopamine-2 Receptor Antagonist Start: 12-15-2021 End: 12-15-2021 metoclopramide (REGLAN) injection 10 mg Start: 10-18-2021 metoclopramide (REGLAN) tablet 10 mg 1 ml morphine sulfate 4 mg/ml cartridge (2 sources) Opioid Agonist Start: 10-09-2020 End: 10-09-2020 morphine (PF) injection 4 mg naproxen sodium 220 mg oral tablet (2 sources) Nonsteroidal Anti-inflammatory Drug End: 04-30-2019 take 2 tablets by mouth twice daily as needed for pain naproxen sodium (ALEVE) 220 MG tablet Take 440 mg by mouth 2 times daily as needed for Pain 0 04/30/2019 Discontinued (Stop Taking at Discharge) 2 ml ondansetron 2 mg/ml injection (6 sources) Serotonin-3 Receptor Antagonist Start: 08-01-2021 End: 08-01-2021 ondansetron (ZOFRAN) injection 4 mg Start: 10-08-2020 End: 10-08-2020 ondansetron (ZOFRAN) injecti on 4 mg Start: 02-09-2020 End: 02-09-2020 ondansetron (ZOFRAN-ODT) disintegrating tablet 4 mg Start: 04-30-2019 End: 04-30-2019 ondansetron (ZOFRAN) injecti on 4 mg Start: 01-26-2009 take 1 tablet by ting th every eight hours as needed for nausea ondansetron (ZOFRAN ODT) 4 MG disintegrating tablet Take 1 tablet by mouth every 8 hours as needed for Nausea 12 tablet 0 02/09/2020 Active phentermine hydrochloride 37.5 mg oral tablet (6 sources) Sympathomimetic Amine Anorectic Start: 03-07-2022 End: 05-03-2022 take 1 tablet by mouth once daily before breakfast phentermine (Adipex-P) 37.5 MG tablet Indications: Overweight Take 1 tablet (37.5 mg) by mouth every morning (before breakfast). 30 tablet 0 03/07/2022 05/03/2022 Discontinued (Therapy completed) phentermine HCl (ADIPEX-P ORAL) Active phentermine HCl (ADIPEX-P ORAL) 50 ml sodium chloride 9 mg/m l injection (12 sources) Start: 12-15-2021 End: 12-15-2021 0.9 % sodium chloride bolus Start: 10-08-2020 sodium chlorid e (ALTAMIST SPRAY) 0.65 % nasal spray 1 spray by Nasal route as needed for Congestion 1 Bottle 3 10/08/2020 Active Start: 10-08-2020 End: 10-08-2020 0.9 % sodium chloride bolus Start: 10-08-2020 0.9 % sodium c hloride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 09/30/2024 03:46 Note Text: Pt verbalizes understanding of discharge instructions. Denies further questions, comments, concerns at this time. Normal [facility] ED NOTE HNO ID: [id number] Author: BRENDAN TRAYLOR, SHA Service: Emergency Medicine Author Type: Registered Nurse Type: ED Notes Filed: 09/30/2024 00:45 Note Text: Report to RN Brooke Normal [facility] ED NOTE HNO ID: [id number] Author: BROOKE PEREZ RN Service: Emergency Medicine Author Type: Registered Nurse Type: ED Notes Filed: 09/30/2024 03:47 Note Text: Report from SHA Retana. Patient resting quietly in bed. Respirs even, unlabored, call light in reach. Normal [facility] CBC W Auto Differential pane l (Bld)on 09-29-2024 Basophils (Bld) [#/Vol] 10*3/uL Normal <0.11 [facility] Comment on above: Order Comment: Speci men Type: BLOOD SPECIMENOrdering Facility: [facility] Address: [address] [place] [address] Performed By: #### 5 7021-8 ####[facility] LABCLIA [id number] [place] [address] [place] Basophils/100 WBC (Bld) 0.3 % Normal [facility] Comment on above: Order Comment: Speci men Type: BLOOD SPECIMENOrdering Facility: [facility] Address: [address] [place] [address] Performed By: #### 5 7021-8 ####[facility] LABCLIA [id number] [place] [address] [place] Differential cell count method Nom (Bld) Auto Normal [facility] Comment on above: Order Comment: Speci men Type: BLOOD SPECIMENOrdering Facility: [facility] Address: [address] [place] [address] Performed By: #### 5 7021-8 ####[facility] LABCLIA [id number] [place] [address] [place] Eosinophils (Bld) [#/Vol] 0.07 10*3/uL Normal <0.46 [facility] Comment on above: Order Comment: Speci men Type: BLOOD SPECIMENOrdering Facility: [facility] Address: [address] [place] [address] Performed By: #### 5 7021-8 ####[facility] [place] LABCLIA [id number] [facility] [place] [place] [address] [place] Eosinophils/100 WBC (Bld) 1.0 % Normal [facility] Comment on above: Order Comment: Speci men Type: BLOOD SPECIMENOrdering Facility: [facility] Address: [address] [place] [address] Performed By: #### 5 7021-8 ####[facility] LAB[facility] [id number] [place] [address] [place] Erythrocyte distribution width (RBC) [Ratio] 15.4 % High 11.5-15.0 [facility] Comment on above: Order Comment: Speci men Type: BLOOD SPECIMENOrdering Facility: [facility] Address: [address] [place] [address] Performed By: #### 5 7021-8 ####[facility] [id number] [facility] [place] [place] [address] [place] Hematocrit (Bld) [Volume fraction] 39.7 % Normal 36.0-46.0 [facility] Comment on above: Order Comment: Speci men Type: BLOOD SPECIMENOrdering Facility: [facility] Address: [address] [place] [address] Performed By: #### 5 7021-8 ####[facility] [place] LABCLIA [id number] [facility] [place] [place] [address] [place] Hemoglobin (Bld) [Mass/Vol] 12.3 g/dL Normal 11.5-15.5 [facility] Comment on above: Order Comment: Speci men Type: BLOOD SPECIMENOrdering Facility: [facility] Address: [address] [place] [address] Performed By: #### 5 7021-8 ####[facility] [place] LABCLIA [id number] [facility] [place] [address] [place] Immature granulocytes (Bld) [#/Vol] 10*3/uL Normal <0.10 [facility] Comment on above: Order Comment: Speci men Type: BLOOD SPECIMENOrdering Facility: [facility] Address: [address] [place] [address] Performed By: #### 5 7021-8 ####[facility] LABCLIA [id number] [place] [address] [place] [facility] Immature granulocytes/100 WBC (Bld) 0.1 % Normal [facility] Comment on above: Order Comment: Speci men Type: BLOOD SPECIMENOrdering Facility: [facility] Address: [address] [place] [address] Performed By: #### 5 7021-8 ####[facility] LABCLIA [id number] [place] [address] [place] Lymphocytes (Bld) [#/Vol] 2.32 10*3/uL Normal 1.00-4.00 [facility] Comment on above: Order Comment: Speci men Type: BLOOD SPECIMENOrdering Facility: [facility] Address: [address] [place] [address] Performed By: #### 5 7021-8 ####[facility] LABCLIA [id number] [place] [id number] [place] [facility] Lymphocytes/100 WBC (Bld) 32.6 % Normal [facility] Comment on above: Order Comment: Speci men Type: BLOOD SPECIMENOrdering Facility: [facility] Address: [address] [place] [address] Performed By: #### 5 7021-8 ####[facility] LABCLIA [id number] [place] [address] [place] MCH (RBC) [Entitic mass] 27.6 pg Normal 26.0-34.0 [facility] Comment on above: Order Comment: Speci men Type: BLOOD SPECIMENOrdering Facility: [facility] Address: [address] [place] [address] Performed By: #### 5 7021-8 ####[facility] LABCLIA [id number] [place] [address] [place] MCHC (RBC) [Mass/Vol] 31.0 g/dL Normal 30.5-36.0 [facility] Comment on above: Order Comment: Speci men Type: BLOOD SPECIMENOrdering Facility: [facility] Address: [address] [place] [address] Performed By: #### 5 7021-8 ####[facility] [place] LABCLIA [id number] [place] [address] [facility] MCV (RBC) [Entitic vol] 89.0 fL Normal 80.0-100.0 [facility] Comment on above: Order Comment: Speci men Type: BLOOD SPECIMENOrdering Facility: [facility] Address: [address] [place] [address] Performed By: #### 5 7021-8 ####[facility] LABCL[facility] [id number] [place] [address] [place] Monocytes (Bld) [#/Vol] 0.69 10*3/uL Normal <0.87 [facility] Comment on above: Order Comment: Speci men Type: BLOOD SPECIMENOrdering Facility: [facility] Address: [address] [place] [address] Performed By: #### 5 7021-8 ####[facility] LAB[facility] [id number] [place] [address] [facility] Monocytes/100 WBC (Bld) 9.7 % Normal [facility] Comment on above: Order Comment: Speci men Type: BLOOD SPECIMENOrdering Facility: [facility] Address: [address] [place] [address] Performed By: #### 5 7021-8 ####[facility] LAB[facility] [id number] [place] [address] [facility] [place] Neutrophils (Bld) [#/Vol] 4.00 10*3/uL Normal 1.45-7.50 [facility] Comment on above: Order Comment: Speci men Type: BLOOD SPECIMENOrdering Facility: [facility] Address: [address] [place] [address] Performed By: #### 5 7021-8 ####[facility] LABCLIA [id number] [facility] [place] [address] [facility] [place] Neutrophils/100 WBC (Bld) 56.3 % Normal [facility] Comment on above: Order Comment: Speci men Type: BLOOD SPECIMENOrdering Facility: [facility] Address: [address] [place] [address] Performed By: #### 5 7021-8 ####[facility] [place] LABCLIA [id number] [place] [address] [facility] [place] Nucleated RBC (Bld) [#/Vol] Normal [facility] Comment on above: Order Comment: Speci men Type: BLOOD SPECIMENOrdering Facility: [facility] Address: [address] [place] [address] Performed By: #### 5 7021-8 ####[facility] LABCLIA [id number] [facility] [place] [place] [address] [facility] [place] Nucleated RBC/100 WBC (Bld) [Ratio] Normal [facility] Comment on above: Order Comment: Speci men Type: BLOOD SPECIMENOrdering Facility: [facility] Address: [address] [place] [address] Performed By: #### 5 7021-8 ####[facility] LABCLIA [id number] [place] [address] [place] Platelet mean volume (Bld) [Entitic vol] 9.6 fL Normal 9.0-12.7 [facility] Comment on above: Order Comment: Speci men Type: BLOOD SPECIMENOrdering Facility: [facility] Address: [address] [place] [address] Performed By: #### 5 7021-8 ####[facility] [place] LABCLIA [id number] [place] [address] [place] Platelets (Bld) [#/Vol] 221 10*3/uL Normal 150-400 [facility] Comment on above: Order Comment: Speci men Type: BLOOD SPECIMENOrdering Facility: [facility] Address: [address] [place] [address] Performed By: #### 5 7021-8 ####[facility] LABCLIA [id number] [place] [address] [place] RBC (Bld) [#/Vol] 4.46 10*6/uL Normal 3.90-5.20 [facility] Comment on above: Order Comment: Speci men Type: BLOOD SPECIMENOrdering Facility: [facility] Address: [address] [place] [address] Performed By: #### 5 7021-8 ####[facility] LABCLIA [id number] [place] [address] [facility] WBC (Bld) [#/Vol] 7.11 10*3/uL Normal 3.70-11.00 [facility] Comment on above: Order Comment: Speci men Type: BLOOD SPECIMENOrdering Facility: [facility] Address: [address] [place] [address] Performed By: #### 5 7021-8 ####[facility] LABCL[facility] [id number] [place] [address] [facility] Comprehensive metabolic 2000 panelon 09-29-2024 Albumin [Mass/Vol] 4.5 g/dL Normal 3.9-4.9 [facility] Comment on above: Order Comment: Speci men Type: BLOOD SPECIMENOrdering Facility: [facility] Address: [address] [place] [address] Performed By: #### 2 4323-8, 3040-3 ####[facility] LABCLIA [id number] [place] [address] [facility] ALP [Catalytic activity/Vol] 59 U/L Normal 34-123 [facility] Comment on above: Order Comment: Speci men Type: BLOOD SPECIMENOrdering Facility: [facility] Address: [address] [place] [address] Performed By: #### 2 4323-8, 3040-3 ####[facility] [place] LABCLIA [id number] [place] [address] [place] ALT With P-5'-P [Catalytic activity/Vol] 15 U/L Normal 7-38 [facility] Comment on above: Order Comment: Speci men Type: BLOOD SPECIMENOrdering Facility: [facility] Address: [address] [place] [address] Performed By: #### 2 4323-8, 3040-3 ####[facility] [place] LABCLIA [id number] [place] [address] [place] Anion gap [Moles/Vol] 11 mmol/L Normal 8-15 [facility] Comment on above: Order Comment: Speci men Type: BLOOD SPECIMENOrdering Facility: [facility] Address: [address] [place], [place] [address] Performed By: #### 2 4323-8, 3040-3 ####[facility] [place] LABCLIA [id number] [place] [address] [place] AST With P-5'-P [Catalytic activity/Vol] 24 U/L Normal 13-35 [facility] Comment on above: Order Comment: Speci men Type: BLOOD SPECIMENOrdering Facility: [facility] Address: [address] [place] [address] Performed By: #### 2 4323-8, 3040-3 ####[facility] [place] LABCLIA [id number] [place] [address] [place] Bilirubin [Mass/Vol] 0.3 mg/dL Normal 0.2-1.3 [facility] Comment on above: Order Comment: Speci men Type: BLOOD SPECIMENOrdering Facility: [facility] Address: [address] [place] [address] Performed By: #### 2 4323-8, 3040-3 ####[facility] LABCLIA [id number] [place] [address] [place] Calcium [Mass/Vol] 9.3 mg/dL Normal 8.5-10.2 [facility] Comment on above: Order Comment: Speci men Type: BLOOD SPECIMENOrdering Facility: [facility] Address: [address] [place] [address] Performed By: #### 2 4323-8, 3040-3 ####[facility] [place] LABCLIA [id number] [facility] [place] [place] [address] [place] Chloride [Moles/Vol] 100 mmol/L Normal 98-107 [facility] Comment on above: Order Comment: Speci men Type: BLOOD SPECIMENOrdering Facility: [facility] Address: [address] [place] [address] Performed By: #### 2 4323-8, 0-3 ####[facility] [place] LABCLIA [id number] [place] [address] [place] CO2 [Moles/Vol] 25 mmol/L Normal 22-30 [facility] Comment on above: Order Comment: Speci men Type: BLOOD SPECIMENOrdering Facility: [facility] Address: [address] [place] [address] Performed By: #### 2 4323-8, 3040-3 ####[facility] [place] LABCLIA [id number] [place] [address] [place] Creatinine [Mass/Vol] 0.97 mg/dL High 0.58-0.96 [facility] Comment on above: Order Comment: Speci men Type: BLOOD SPECIMENOrdering Facility: [facility] Address: [address] [place] [address] Performed By: #### 2 4323-8, 3040-3 ####[facility] [place] LABCLIA [id number] [place] [address] [facility] Creatinine and Glomerular filtration rate.predicted panel (S/P/Bld) 78 mL/min/1.73m??? Normal >=60 [facility] Comment on above: Order Comment: Speci men Type: BLOOD SPECIMENOrdering Facility: [facility] Address: [address] [place] [address] Result Comment: Silvia mated Glomerular Filtration Rate (eGFR) is calculated using the 2020 CKD-EPI creatinine equation. This equation utilizes serum creatinine, sex, and age as parameters. The creatinine assay has traceable calibration to isotope dilution-mass spectrometry. Refer to KDIGO guidelines for clinical interpretation. In patients with unstable renal function, e.g. those with acute kidney injury, the eGFR may not accurately reflect actual GFR. Performed By: #### 2 4323-8, 3040-3 ####[facility] LABNavegg [id number] [place] [address] [place] Glucose [Mass/Vol] 91 mg/dL Normal 74-99 [facility] Comment on above: Order Comment: Margarita urban Type: BLOOD SPECIMENOrdering Facility: [facility] Address: [address] [place] [address] Result Comment: The [place] Diabetes Association (ADA) provides guidance for cutoff values for fasting glucose and random glucose. The ADA defines fasting as no caloric intake for at least 8 hours. Fasting plasma glucose results between 100 to 125 mg/dL indicate increased risk for diabetes (prediabetes). Fasting plasma glucose results greater than or equal to 126 mg/dL meet the criteria for diagnosis of diabetes. In the absence of unequivocal hyperglycemia, results should be confirmed by repeat testing. In a patient with classic symptoms of hyperglycemia or hyperglycemic crisis, random plasma glucose results greater than or equal to 200 mg/dL meet the criteria for diagnosis of diabetes. Reference: Standards of Medical Care in Diabetes 2016, [place] [employer]. Diabetes Care. 2016.39(Suppl 1). Performed By: #### 2 4323-8, 3040-3 ####[facility] LABIA [id number] [place] [address] [place] Potassium [Moles/Vol] 3.8 mmol/L Normal 3.7-5.1 [facility] Comment on above: Order Comment: Margarita urban Type: BLOOD SPECIMENOrdering Facility: [facility] Address: [address] [place] [id number] Performed By: #### 2 4323-8, 3040-3 ####[facility] [place] LABCLIA [id number] [facility] [place] [address] [place] Protein [Mass/Vol] 7.9 g/dL Normal 6.3-8.0 [facility] Comment on above: Order Comment: Speci men Type: BLOOD SPECIMENOrdering Facility: [facility] Address: [address] [place] [address] Performed By: #### 2 4323-8, 3040-3 ####[facility] [place] LABCLIA [id number] [facility] [place] [place] [address] [place] Sodium [Moles/Vol] 136 mmol/L Normal 136-144 [facility] Comment on above: Order Comment: Speci men Type: BLOOD SPECIMENOrdering Facility: [facility] Address: [address] [place] [address] Performed By: #### 2 4323-8, 3040-3 ####[facility] [place] LABCLIA [id number] [place] [address] [place] Urea nitrogen [Mass/Vol] 14 mg/dL Normal 7-21 [facility] Comment on above: Order Comment: Speci men Type: BLOOD SPECIMENOrdering Facility: [facility] Address: [address] [place] [address] Performed By: #### 2 4323-8, 3040-3 ####[facility] [place] LABCLIA [id number] [place] [address] [place] ED NOTEon 09-29-2024 ED NOTE HNO ID: [id number] Author: BRENDAN TRAYLOR RN Service: Emergency Medicine Author Type: Registered Nurse Type: ED Notes Filed: 09/29/2024 22:40 Note Text: Patient states that she is having right upper quadrant abdominal pain. Patient had pain and an episode of vomiting last week, which resolved. Tonight, she started having abdominal pain a few minutes after she ate. Complains of abdominal pain, gas, nausea, vomiting, and diarrhea. Patient takes zofran regularly with glp-1. Patient denies fever. Normal [facility] ED PROV NOTEon 09-29-2024 ED PROV NOTE HNO ID: [id number] Author: GOGO CESPEDES DO Service: Emergency Medicine Author Type: Physician Type: ED Provider Notes Filed: 09/30/2024 06:06 Note Text: ED Provider Note Patient Name: Jacy Carroll : 1990 SERVICE DATE: 09/29/24 History Patient presents with: Abdominal Pain Vomiting Diarrhea Nausea Jacy Carroll is a 34 year old female who presents with Abdominal Pain, Vomiting, Diarrhea, and Nausea. - Symptoms began today. - Severity: moderate - Timing: constant - Symptoms are associated with right sided abdominal pain. - Symptoms are not associated with chest pain, chills, fever, shortness of breath, flank pain, dysuria, hematuria. Patient presents with right-sided abdominal pain. She states she initially had some abdominal pain last week which resolved and then started up again today with nausea, vomiting and diarrhea. She states that she has no fever or chills. No flank pain or back pain. No dysuria or hematuria. No chest pain or shortness of breath. No prior abdominal surgeries. PAST MEDICAL HISTORY Diagnosis Date Nausea Psychiatric disorder anxiety /depression PAST SURGICAL HISTORY Procedure Laterality Date KNEE SURGERY HX Left scope PAST SURGICAL HISTORY OF 06/23/2022 kyleena IUD insertion SKIN SURGERY HX cyst from groin FAMILY HISTORY Problem Relation Age of Onset Stroke Mother Arthritis Maternal Grandmother rumatoid Arthritis Maternal Grandfather rumatoid Heart Failure Paternal Grandmother Heart Failure Paternal Grandfather Social History Tobacco Use Smoking status: Never Smokeless tobacco: Never Vaping Use Vaping status: Never Used Substance and Sexual Activity Alcohol use: Yes Comment: most days - 1 glass of bourbon Drug use: No Sexual activity: Yes Partners: Male control/protection: I.U.D. ALLERGIES Allergen Reactions Penicillin Other: See Comments Throat closes Review of Systems Constitutional: Negative for chills and fever. Respiratory: Negative for shortness of breath. Cardiovascular: Negative for chest pain. Gastrointestinal: Positive for abdominal pain, diarrhea, nausea and vomiting. Genitourinary: Negative for dysuria, flank pain and hematuria. Musculoskeletal: Negative for back pain. Skin: Negative for rash. Neurological: Negative for syncope, weakness and numbness. Psychiatric/Behavioral : Negative for agitation and confusion. Physical Exam Vitals [09/29/24 2234] BP Pulse Temp Temp src Resp SpO2 Weight Height 125/78 76 -- -- 18 99 % 60.3 kg (133 lb) -- Physical Exam Vitals and nursing note reviewed. Constitutional: Appearance: She is not toxic-appearing or diaphoretic. HENT: Head: Normocephalic and atraumatic. Mouth/Throat: Mouth: Mucous membranes are moist. Eyes: Conjunctiva/sclera: Conjunctivae normal. Cardiovascular: Rate and Rhythm: Normal rate and regular rhythm. Pulses: Normal pulses. Pulmonary: Effort: Pulmonary effort is normal. Breath sounds: Normal breath sounds. Abdominal: General: Abdomen is flat. Bowel sounds are normal. There is no distension. Palpations: Abdomen is soft. Tenderness: There is abdominal tenderness in the right upper quadrant and right lower quadrant. There is no right CVA tenderness or left CVA tenderness. Negative signs include Cisneros's sign. Skin: General: Skin is warm and dry. Capillary Refill: Capillary refill takes less than 2 seconds. Findings: No rash. Neurological: General: No focal deficit present. Mental Status: She is alert and oriented to person, place, and time. Psychiatric: Mood and Affect: Mood normal. Behavior: Behavior normal. Diagnostic Testing ED Labs Ordered and Reviewed COMPREHENSIVE METABOLIC PANEL - Abnormal; Notable for the following components: Result Value Ref Range Creatinine 0.97 (*) 0.58 - 0.96 mg/dL All other components within normal limits LIPASE - Abnormal; Notable for the following components: Lipase 152 (*) 16 - 61 U/L All other components within normal limits COMPLETE BLOOD COUNT AND DIFFERENTIAL - Abnormal; Notable for the following components: RDW-CV 15.4 (*) 11.5 - 15.0 % All other components within normal limits URINALYSIS (WITH MICROSCOPIC) WITH CULTURE IF INDICATED - Abnormal; Notable for the following components: Clarity Slightly Cloudy (*) Clear Ketones, Urine Trace (*) Negative Bacteria Few (*) None Seen /HPF All other components within normal limits SEPSIS LACTATE W/ REFLEX (INITIAL) - Normal HCG, QUALITATIVE, URINE - Normal Procedures ED Course / Clinical Impression Clinical Impressions as of 09/30/24 0606 Abdominal pain, unspecified abdominal location Elevated lipase MDM / Disposition / Plan Will obtain labs, UA, and CT abdomen pelvis. Labs Reviewed COMPREHENSIVE METABOLIC PANEL - Abnormal; Notable for the following components: Creatinine 0.97 (*) A (more content not included)... Normal [facility] HCG Preg Ur Qlon 09-29-2024 HCG ( test) Ql (U) Negative Normal Negative [facility] Comment on above: Order Comment: Speci wilmar Type: URINE SPECIMENOrdering Facility: [facility] Address: [address] [place] [address] Result Comment: This test is intended to aid in the early detection of . Very dilute urine samples, as indicated by a low specific gravity, may not contain insurance representative levels of hCG. This test detects intact hCG only. This test does not reliably detect hCG degradation products, including free-beta subunit and beta-core fragment. Therefore, this test may show reduced reactivity in urine after 8 weeks gestation. A number of conditions other than , including trophoblastic disease and certain non-trophoblastic neoplasms cause elevated levels of hCG. As with any assay employing mouse antibodies, the possibility exists for interference by human anti-mouse antibodies (HAMA) in the specimen. The test provides a presumptive diagnosis for . Performed By: #### 2 106-3 ####[facility] LABCLIA [id number] [place] [id number] [place] Lipase SerPl-cCncon 09-30-19 25 Lipase [Catalytic activity/Vol] 152 U/L High 16-61 [facility] Comment on above: Order Comment: Margarita urban Type: BLOOD SPECIMENOrdering Facility: [facility] Address: [address] [place] [address] Performed By: #### 2 4323-8, 3040-3 ####[facility] LABCLIA [id number] [place] [address] [place] SEPSIS LACTATE W/ REFLEX (IN ITIAL)on 09-29-2024 Lactate [Moles/Vol] 0.6 mmol/L Normal <=2.0 [facility] Comment on above: Order Comment: Margarita urban Type: BLOOD SPECIMENOrdering Facility: [facility] Address: [address], [place] [address] Performed By: #### S LACTR ####[facility] LABCLIA [id number] [place] [address] [facility] Urinalysis complete panel (U )on 09-29-2024 Bacteria LM.HPF (Urine sed) [#/Area] Few Abnormal None Seen [facility] Comment on above: Order Comment: Speci men Type: URINE SPECIMENOrdering Facility: [facility] Address: [address] [place] [address] Performed By: #### 2 4356-8 ####[facility] LABCLIA [id number] [place] [address] [facility] Bilirubin Ql (U) Negative Normal Negative [place] Comment on above: Order Comment: Speci men Type: URINE SPECIMENOrdering Facility: [facility] Address: [address] [place] [address] Performed By: #### 2 4356-8 ####[facility] LABCL[facility] [id number] [place] [address] [facility] Clarity (Unsp spec) Slightly Cloudy Abnormal Clear [facility] Comment on above: Order Comment: Speci men Type: URINE SPECIMENOrdering Facility: [facility] Address: [address] [place] [address] Performed By: #### 2 4356-8 ####[facility] LABCLIA [id number] [place] [address] [facility] Color (U) Yellow Normal Yellow [facility] Comment on above: Order Comment: Speci men Type: URINE SPECIMENOrdering Facility: [facility] Address: [address] [place] [address] Performed By: #### 2 4356-8 ####[facility] LABCLIA [id number] [place] [address] [facility] Epithelial cells LM.HPF (Urine sed) [#/Area] Many Normal [facility] Comment on above: Order Comment: Speci men Type: URINE SPECIMENOrdering Facility: [facility] Address: [address] [place] [address] Performed By: #### 2 4356-8 ####[facility] LABCLIA [id number] [place] [address] [facility] Glucose Test strip (U) [Mass/Vol] Negative Normal Negative [facility] Comment on above: Order Comment: Speci men Type: URINE SPECIMENOrdering Facility: [facility] Address: [address] [place] [address] Performed By: #### 2 4356-8 ####[facility] LABCLIA [id number] [place] [address] [place] Hemoglobin Ql (U) Negative Normal Negative [facility] Comment on above: Order Comment: Speci men Type: URINE SPECIMENOrdering Facility: [facility] Address: [address] [place] [address] Performed By: #### 2 4356-8 ####[facility] LABCLIA [id number] [place] [address] [place] Ketones Ql (U) Trace Abnormal Negative [facility] Comment on above: Order Comment: Speci men Type: URINE SPECIMENOrdering Facility: [facility] Address: [address] [place] [address] Performed By: #### 2 4356-8 ####[facility] LABCLIA [id number] [place] [address] [facility] Leukocyte esterase Test strip Ql (U) Negative Normal Negative [facility] Comment on above: Order Comment: Speci men Type: URINE SPECIMENOrdering Facility: [facility] Address: [address] [place] [address] Performed By: #### 2 4356-8 ####[facility] LABCLIA [id number] [place] [address] [place] Nitrite Ql (U) Negative Normal Negative [facility] Comment on above: Order Comment: Speci men Type: URINE SPECIMENOrdering Facility: [facility] Address: [address] [place] [address] Performed By: #### 2 4356-8 ####[facility] LABCLIA [id number] [place] [address] [place] [facility] pH (U) 7.0 [pH] Normal 5.0-8.0 [facility] Comment on above: Order Comment: Speci men Type: URINE SPECIMENOrdering Facility: [facility] Address: [address] [place] [address] Performed By: #### 2 4356-8 ####[facility] LABCLIA [id number] [place] [address] [place] Protein (U) [Mass/Vol] Negative Normal Negative [facility] Comment on above: Order Comment: Speci men Type: URINE SPECIMENOrdering Facility: [facility] Address: [address] [place] [address] Performed By: #### 2 4356-8 ####[facility] LABCLIA [id number] [place] [address] [place] [facility] RBC LM.HPF (Urine sed) [#/Area] 0-3 /HPF Normal 0-3 /HPF [facility] Comment on above: Order Comment: Speci men Type: URINE SPECIMENOrdering Facility: [facility] Address: [address] [place] [address] Performed By: #### 2 4356-8 ####[facility] LABCLIA [id number] [place] [address] [place] Specific gravity (U) [Rel density] 1.025 Normal 1.005-1.030 [facility] Comment on above: Order Comment: Speci men Type: URINE SPECIMENOrdering Facility: [facility] Address: [address] [place] [address] Performed By: #### 2 4356-8 ####[facility] LABCLIA [id number] [place] [address] [place] Urobilinogen Ql (U) 1.0 EU/dL Normal 0.2-1.0 EU/dL [facility] Comment on above: Order Comment: Speci men Type: URINE SPECIMENOrdering Facility: [facility] Address: [address] [place] [address] Performed By: #### 2 4356-8 ####[facility] LABCLIA [id number] [place] [address] [facility] WBC LM.HPF (Urine sed) [#/Area] 0-5 /HPF Normal 0-5 /HPF [facility] Comment on above: Order Comment: Speci men Type: URINE SPECIMENOrdering Facility: [facility] Address: [address] [place] [address] Performed By: #### 2 4356-8 ####[facility] LABCLIA [id number] [place] [address] [facility] CNCOon 07-30-2024 CNCO Letter Text Normal [facility] Cardiac stress study Procedu reOrdered By: Dulce Maria Barbour on 03-20-2024 Baseline Diastolic BP 80 mmHg [facility] [employer] Work Phone: Baseline HR [address] [facility] [employer] Phone: Baseline ST Depression [address] [facility] [employer] Phone: Baseline Systolic BP 112 mmHg [facility] Fire[employer] Phone: Exercise Duration Seconds [address] [facility] [employer] Phone: Exercise Duration Time [address] [facility] [employer] Phone: Recovery Stage 1 BP 144/[address] [facility] [employer] Phone: Recovery Stage 1 Duration 1 min:sec [facility] [employer] Phone: Recovery Stage [address] [facility] [employer] Phone: Recovery Stage 2 BP 132/[address] [facility] [employer] Phone: Recovery Stage 2 Duration 2 min:sec [facility]: Recovery Stage [address] [facility] [employer] Phone: Recovery Stage 3 BP 118/74 [facility] Work Phone: Recovery Stage 3 Duration 4:30 min:sec [facility] Work Phone: Recovery Stage 3 HR 99 bpm [facility] Work Phone: Stress Diastolic BP 82 mmHg [facility] Work Phone: Stress Estimated Workload 13.4 METS [facility] Work Phone: Stress Peak HR 173 bpm [facility] Work Phone: Stress Percent HR Achieved 94 % [facility] Work Phone: Stress Rate Pressure Product 80784 bpm*mmHg [facility] Work Phone: Stress ST Depression 0 mm [facility] Work Phone: Stress Stage 1 BP 120/74 [facility] Work Phone: Stress Stage 1 Duration 3 min:sec [facility] Work Phone: Stress Stage 1 HR 114 bpm [facility] Work Phone: Stress Stage 2 BP 132/76 mmHg [facility] Work Phone: Stress Stage 2 Duration 6 min:sec [facility] Work Phone: Stress Stage 2 HR 127 bpm [facility] Work Phone: Stress Stage 3 BP 138/80 mmHg [facility] Work Phone: Stress Stage 3 Duration 9 min:sec [facility] Work Phone: Stress Stage 3 HR 146 bpm [facility] Work Phone: Stress Stage 4 BP 146/82 mmHg [facility] Work Phone: Stress Stage 4 Duration 12 min:sec [facility] Work Phone: Stress Stage 4 HR 173 bpm [facility] Work Phone: Stress Systolic BP 146 mmHg [facility] Work Phone: Stress Target HR 185 bpm [facility] Work Phone: Cardiac stress study Procedu reon 03-20-2024 Stress ECG: No ST depression was noted. Conclusion: The stress test is normal. Stress Test: A Nikita protocol stress test was performed. Overall, the patient's exercise capacity was above average for their age. The patient exercised for 12 min and 1 sec. Hemodynamics are adequate for diagnosis. Blood pressure demonstrated a normal response and heart rate demonstrated a normal response to stress. The patient's heart rate recovery was normal. Resting ECG: The ECG shows normal sinus rhythm. Resting ECG shows no ST-segment deviation. Resting ECG The ECG shows normal sinus rhythm. Resting ECG shows no ST-segment deviation. Stress Findings A Nikita protocol stress test was performed. Overall, the patient's exercise capacity was above average for their age. The patient exercised for 12 min and 1 sec. Dameon rating of perceived exertion was 17. Hemodynamics are adequate for diagnosis. Blood pressure demonstrated a normal response and heart rate demonstrated a normal response to stress. The patient's heart rate recovery was normal. The patient reported no symptoms prior to the stress test. The patient reported fatigue during the stress test. Symptoms began during stress and ended during recovery. The test was stopped because the patient experienced fatigue. Stress ECG There were no arrhythmias during stress. No ST depression was noted. Conclusion: The stress test is normal. CV EPIPHANY XR Chest Single viewon 03-20 No focal consolidati on or pulmonary edema. Report Dictated on Electronically Signed By: Carloz Franco MD Electronically Signed Date/Time: 03/20/2024 11:33 AM EST [facility] Name[facility]ARROLL : 1990 [id number] Exam Date/Time: 03/20/2024 10:47 Procedure: XR CHEST 1 VIEW Ordering Provider: KOEHLER MICHAEL Reason For Exam: z02.1 PORTABLE CHEST CLINICAL INDICATION: Preemployment physical TECHNIQUE: Portable AP COMPARISON: None FINDINGS: No focal consolidation or pulmonary edema. No pleural effusions or pneumothorax. The cardiac and mediastinal silhouettes are normal. The osseous structures are unremarkable. [facility] [employer] Carloz Franco MD - 03/20/2024 Patient Name: JACY CARROLL : 1990 [id number] Exam Date/Time: 03/20/2024 10:47 Procedure: XR CHEST 1 VIEW Ordering Provider: KOEHLER MICHAEL Reason For Exam: z02.1 PORTABLE CHEST CLINICAL INDICATION: Preemployment physical TECHNIQUE: Portable AP COMPARISON: None FINDINGS: No focal consolidation or pulmonary edema. No pleural effusions or pneumothorax. The cardiac and mediastinal silhouettes are normal. The osseous structures are unremarkable. IMPRESSION: No focal consolidation or pulmonary edema. Report Dictated on Electronically Signed By: Carloz Franco MD Electronically Signed Date/Time: 03/20/2024 11:33 AM EST [facility] [employer] [facility] Study observation (narrative) [employer] XR Chest Single viewOrdered By: Carloz Franco on 03-20-2024 [employer] Work Phone: CNPAnnetta 03-18-2024 [facility] Telephone (AGGASTN) JACY CARROLL ([id number]) 1990 F Date Time Provider Department 03/18/24 GOGO GRANDE During your visit today, we recorded the following information about you: Gogo Grande PA-C 03/18/2024 9:37 AM Signed Needs follow up in a few months. Rell Galeano 03/18/2024 10:21 AM Signed Lvm to schedule 3 month follow up with Gogo. Rell Galeano Allergies As of Date: 03/18/2024 Noted Allergy Reaction PENICILLIN 11/08/2016 14 - Other: See Comments Comments: Throat closes Date Reviewed: 07/07/2023 Reviewed by: Josue Virk MD - Fully Assessed Reason for Visit: Appointment [186] Prescriptions as of 03/18/2024 - polyethylene glycol 3350 (MIRALAX) 17 gram/dose powder Take 17 g by mouth once daily. Dissolve dose in 4 - 8 ounces of liquid and take as directed. - pantoprazole DR (PROTONIX) 40 mg tablet Take 1 tablet by mouth every morning. Take 30 mins before meals - fluconazole (DIFLUCAN) 150 mg tablet Take 1 tablet by mouth one time a week. repeat if needed in one week - semaglutide, weight loss, (WEGOVY) 0.5 mg/0.5 mL pen injector Inject 0.5 mg subcutaneously one time a week. - phentermine HCl (ADIPEX-P ORAL) - mupirocin (BACTROBAN) 2 % ointment Apply to affected area three times a day. - FLUoxetine HCl 20 mg tablet Problem List As Of Date: 03/18/2024 (None) Encounter Status:Closed by GOGO GRANDE on 03/18/24 [facility] EGD Reporton 10-30-2023 EGD Report [facility] Medical Records Department [address] [place] [address] EGD Report MR#: [id number] Acct: [id number] Name: JACY CARROLL Rep #: [id number] : 1990 33 From: Percy Mccauley MD PCP: Dr. Karen Gupta MD Status:[facility] Patient Name: Jacy Carroll Procedure Date: 10/30/2023 9:10 AM Date of : 1990 Age: 33 Procedure: Upper GI endoscopy Indications: Epigastric abdominal pain Providers: Percy Mccauley MD Medicines: Propofol per Anesthesia Patient Profile: This is a 33 year old female. Refer to note in patient chart for documentation of history and physical. Complications: No immediate complications. Procedure: Pre-Anesthesia Assessment: - Prior to the procedure, a History and Physical was performed, and patient medications and allergies were reviewed. The patient's tolerance of previous anesthesia was also reviewed. The risks and benefits of the procedure and the sedation options and risks were discussed with the patient. All questions were answered, and informed consent was obtained. Prior Anticoagulants: The patient has taken no anticoagulant or antiplatelet agents. After reviewing the risks and benefits, the patient was deemed in satisfactory condition to undergo the procedure. After obtaining informed consent, the endoscope was passed under direct vision. Throughout the procedure, the patient's blood pressure, pulse, and oxygen saturations were monitored continuously. The Endoscope was introduced through the mouth, and advanced to the second part of duodenum. The upper GI endoscopy was accomplished without difficulty. The patient tolerated the procedure well. Scope In: 9:19:17 AM Scope Out: 9:21:58 AM Total Procedure Duration Time 0 hours 2 minutes 41 seconds Findings: The esophagus was normal. The stomach was normal. The examined duodenum was normal. Biopsies were taken with a cold forceps in the gastric antrum for Helicobacter pylori testing. Impression: - Normal esophagus. - Normal stomach. - Normal examined duodenum. - No specimens collected. Recommendation: - Discharge patient to home. - Resume previous diet. - Continue present medications. - Perform CT scan (computed tomography) of the abdomen with contrast at appointment to be scheduled. Procedure Code(s): --- Professional --- 50809, Esophagogastroduodenos copy, flexible, transoral; with biopsy, single or multiple Diagnosis Code(s): --- Professional --- R10.13, Epigastric pain CPT copyright 2021 [employer]. All rights reserved. The codes documented in this report are preliminary and upon dress marker review may be revised to meet current compliance requirements. Percy Mccauley MD 10/30/2023 9:24:26 AM This report has been signed electronically. Number of Addenda: 0 Note Initiated On: 10/30/2023 9:10 AM 10/30/23 0924 Date Percy Mccauley MD Cosigner Signature: Date (if indicated) CC: Dr. Percy Mccauley MD; Dr. Karen Gupta MD Date Dictated: 10/30/23909 Date Transcribed: Athletic Coordinator: AC Signed Normal [facility] H Pylori (initial)on H Pylori (initial) -- ---- Patient Age/Sex Location Account Attending Physician ---- JACY CARROLL 33/F EN [id number] Dr. Percy Mccauley MD ---- Specimen: [id number] Received: 10/30/23-121 Status: EMIR Melo Num: [id number] Spec Type: IMMUNO Subm Dr: Dr. Percy Mccauley MD PHYSICIAN INSTITUTION [place] [address] SPECIMEN INFORMATION: Tissue Source: Antrum biopsy Clinical Info: Epigastric pain Specimen Number: [id number] CPT code: 80231 METHODOLOGY: Deparaffinized sections of prefer/formalin-fixed tissue or PAP/DQ stained slides are incubated with monoclonal/polyclonal antibodies/oligonucleo tide probes. Localization is made via biotin free immunoperoxidase method. Appropriate controls are performed and reacted as expected. Results on target cell population are indicated in the following table: RESULTS: ANTIBODY / CLONE RESULT H Pylori (polyclonal) negative These tests were developed and their performance characteristics determined by [facility]. They may not have been cleared or approved by the U.S. Food and Drug Administration. The FDA has determined that such clearance or approval is not necessary. The above immunohistochemical/du alISH markers are ordered and reviewed by the Pathologist. INTERPRETATION: Gastric antrum, biopsy: Negative for Helicobacter pylori organisms. AM. 10/31/2023 Signed (signature on file) Dr. Bhupinder Lin, DO 10/31/23 1328 ---- Normal [facility] Comment on above: Performed By: #### P H.PYLORI #### [facility] [address] [place], [address] Lipaseon 10-30-2023 Lipase [Catalytic activity/Vol] 34 U/L Normal 13-75 [facility] Comment on above: Result Comment: Adriana bojorquez note: LIPASE revised reference range effective 22. New Lipase methodology. Expected to produce lower values than the previous assay method. NEW Reference Range: 13 - 75 U/L Performed By: #### L 501.2450 ####[facility] [address] [place], [place], [address] MR/POSTOP.ANEon 10-30-2023 MR/POSTOP.[facility] Medical Records Department [address] [place] [address] Anesthesia Postop Eval I 10/30/23 0932 MR#: [id number] Acct: [id number] Name: JACY CARROLL Rep #: [id number] : 1990 33 From: Amna Avalos PCP: Dr. Karen Gupta MD Status:[facility] Y Race: C Location: [place] [address] Anesthesia: Postop Eval I Current Vital Signs Temperature: 98.6 F Pulse Rate: 114 Blood Pressure: 110/72 Respiratory Rate: 20 Pulse Ox: 100 Assessment Airway patent: Yes Spontaneous unlabored respirations: Yes nausea: No Vomiting: No Anesthesia Complication: No Fluid Hydration Crystalloid volume administer (ml): 400 Total IV fluid infused: 400 Progress Note Anesthesia document: Postop Eval 1 completed: Yes 10/30/23 09 Date Amna Barcenas Signature: Date CC: Signed Normal [facility] MR/[id number] 10-30-2023 [facility] Medical Records Department [address] [place] [address] Anesthesia Postop Eval II 10/30/23 1212 MR#: [id number] Acct: [id number] Name: JACY CARROLL Rep #: [id number] : 1990 33 From: Alfonso Jean-Baptiste MD PCP: Dr. Karen Gupta MD Status:[facility] Y Race: C Location: [place] Anesthesia Postop Eval I Sum Postop Eval Completion status Anesthesia document: Postop Eval 1 completed: Yes Anesthesia Postop Eval I Summary Anesthesia Postop Eval I Summary: Anesthesia Postop Eval I: Assessment Summary Airway patent Yes 10/30/23 09:32 TELEPHONE APPOINTMENT CLERK.CSIR Spontaneous unlabored Yes 10/30/23 09:32 TELEPHONE APPOINTMENT CLERK.CSIR respirations Mental status nausea No 10/30/23 09:32 TELEPHONE APPOINTMENT CLERK.CSIR Vomiting No 10/30/23 09:32 TELEPHONE APPOINTMENT CLERK.CSIR Anesthesia Postop Eval I: Fluid Summary Crystalloid volume administer 400 10/30/23 09:32 TELEPHONE APPOINTMENT CLERK.CSIR (ml) Colloids volume administered ( ml) Blood Product volume administered (ml) Total IV fluid infused 400 10/30/23 09:32 TELEPHONE APPOINTMENT CLERK.CSIR Anesthesia Postop Eval I: Summary Notes Anesthesia Complication No 10/30/23 09:32 TELEPHONE APPOINTMENT CLERK.CSIR Anesthesia Complication Comment: Post-operative progress note Anesthesia: Postop Eval II Evaluation Mental status: Awake Pain Level: 0 nausea: No Vomiting: No 10/30/23 1212 Date Alfonso Jean-Baptiste MD Cosigner Signature: Date CC: Signed Normal [facility] ,Urineon 10-30-2023 Beta HCG ( test) Ql (U) Negative Normal [facility] Comment on above: Result Comment: Very dilute urine specimens, as indicated by a low specific gravity, may not contain insurance representative levels of hCG. If is still suspected, a first morning urine specimen should be collected 48 hours later and tested. Performed By: #### L 400.7600 #### [facility] [address] [place], [place], [address] Surgery Specimen Level Katelin 10-30-2023 Surgery Specimen Level IV ---- Patient Age/Sex Location Account Attending Physician ---- JACY CARROLL [place] 33/F EN [id number] Dr. Percy Mccauley MD ---- Specimen: [id number] Received: 10/30/23 Status: EMIR Alejo Num: [id number] Spec Type: Gastric Bx Subm Dr: Dr. Percy Mccauley MD HEADER OPERATION: EGD with biopsy PRE-OP DIAGNOSIS: Epigastric pain TISSUE SUBMITTED: Antrum biopsy ---- MICROSCOPIC DIAGNOSIS Gastric antrum, biopsy: Mild chronic inflammation. AM. 10/31/2023 COMMENT The results of immunohistochemistry for Helicobacter pylori will be reported separately ([id number]). MICROSCOPIC DESCRIPTION Slides are reviewed. GROSS DESCRIPTION Received in fixative is one container labeled with the patient's name and designated Antrum biopsy. The specimen consists of one irregular fragment of light zendejas soft tissue that measures 0.3 x 0.3 x 0.1 cm. The specimen is totally submitted in one cassette. LEATHA. 10/30/2023 TC:3 CPT:30302 ---- Patient Age/Sex Location Account Attending Physician ---- JACY CARROLL R 33/F EN [id number] Dr. Percy Mccauley MD ---- Signed (signature on file) Dr. Bhupinder Lin DO 10/31/23 1045 ---- Normal [facility] Comment on above: Performed By: #### P SUIV #### [facility] [address] [place], [address] Gallbladderon 10-10-2023 Gallbladder [facility] Imaging Services [address] [place] [address] Gallbladder MR#: [id number] Acct: [id number] Name: JACY CARROLL Rep #: [id number] : 1990 F 33 From: Rito patel MD PCP: Dr. Karen Gupta MD Status: REG CLI Study: Gallbladder Date of Exam: 10/10/23 Exam# [id number] Ordering Dr: Percy Mccauley [id number] STUDY: ABDOMINAL ULTRASOUND - RIGHT UPPER QUADRANT REASON FOR VISIT: Female, 33 years old Epigastric pain x 3 months TECHNIQUE: Ultrasound evaluation of the right upper quadrant was performed with real-time and static baxter-scale imaging. TECHNICAL QUALITY: Adequate. COMPARISON: None. FINDINGS: Liver: The liver measures 15.2 cm. There is normal echogenicity of the liver. The bile ducts are within normal limits. There is hepatic color flow. The direction of portal flow is hepatopetal. There is no demonstrated mass lesion. Gallbladder: Normal distended gallbladder. The gallbladder wall measures 1.9 mm. There is a negative sonographic Cisneros''s sign. There is no pericholecystic fluid. There are no gallstones. Common Bile Duct (C.B.D.): The common bile duct measures 2.7 mm. Pancreas: Normal size of the head, body and tail of the pancreas. There is normal echogenicity of the pancreas. There is no demonstrated pancreatic mass or cyst. Right Kidney: Normal size of the right kidney. The right kidney measures 10.7 cm x 5.6 x 4.9 cm. Normal renal cortex. The right cortex measures 1.5 cm. There is no demonstrated renal mass or cyst. There is no right hydronephrosis. US/Gallbladder IMPRESSION: Normal right upper quadrant ultrasound examination. Electronically Signed: Rito Becerril MD at 15:32 EDT , CC: Dr. Percy Mccauley MD; Dr. Karen Gupta MD Athletic Coordinator: Signed Normal [facility] Surgery Visit Reporton 09-16 Surgery Visit Report [facility] [address] [place] [address] OFFICE VISIT Date of Service: 09/17/23 MR#: [id number] Acct: [id number] Name: JACY CARROLL Rep #: [id number] : 1990 Provider: Dr. Percy asif MD Age/Sex: 33/F Location: [facility] Status: Signed Intake Vital Signs 09/17/23 08:16 Height 5 ft 3 in Weight: 135 lb 6 oz BMI 24.0 BP 93/61 Blood Pressure Location Rt brachial Position Sitting Respiration 18 Pulse 55 L Pulse Source Monitor Temp 97.2 F L Temp Source Temporal Pulse Oximetry (%) 98 Oxygen Delivery Method room air Intake Visit Reasons: ABDOMINAL PAIN Chief Complaint: abdominal pain Chronic Specialist Required: No Is patient in pain?: Yes (constant abdominal pain ) Allergies Penicillins Allergy (Severe, Verified 09/17/23 08:17) Angioedema Medications ???Medication ???Instructions ???Recorded ???Confirmed ???Type fluoxetine 40 mg capsule 40 mg PO DAILY 08/21/23 09/17/23 History ondansetron HCl 4 mg tablet 4 mg PO Q8H 08/21/23 09/17/23 History semaglutide (weight loss) 1 mg/0.5 1 mg subcut QWEEK 08/21/23 09/17/23 History mL subcutaneous pen injector omeprazole 40 mg capsule,delayed 40 mg PO DAILY #60 caps 09/17/23 09/17/23 Rx release Have you fallen in the past year?: No PFSH Family History (Updated 09/17/23 @ 08:16 by Mariola Wynn LPN) Uncle Colon cancer HPI HPI HPI: Patient is a 33-year-old female who reports both upper epigastric pain and lower abdominal pain. She reports the pain does not have any new eating. She says it comes and goes. She said that she also did recently have black tarry stools and coffee-ground emesis. ROS General General: Yes weight change (loss) and fatigue; No appetite, colon cancer, breast cancer or weakness HEENT HEENT: Yes swollen glands; No difficulty swallowing, eye injury, eye surgery or hoarseness Endo Endocrine: No thyroid disease, diabetes mellitus, thyroid cancer, Hair loss, heat intolerance or cold intolerance Skin Skin: No rash or changing moles Musc Musculoskeletal: No back problems, arthritis, rheumatoid arthritis, gout or joint pain Cardio Cardiovascular: No murmur, pacemaker, heart disease, atrial fibrillation, high blood pressure, heart attack, heart stent, palpitations, shortness of breat with exertion or chest pain Psych Psychiatric: Yes depression and anxiety; No hearing voices Resp Respiratory: No shortness of breath, No sleep apnea, No cough, No COPD, Yes asthma, No emphysema and No wheezing Additional Details: exercise induced asthma Gastro Gastrointestinal: Yes abdominal pain, Yes nausea or vomiting, Yes diarrhea, Yes constipation, Yes blood in stool, No acid reflux, No hemorrhoids, Yes ulcers, No gallbladder problem and No black,tarry stools Alverto Hematologic: No blood thinners, No blood disorders, No bleeding, No anemia and No blood clots Neuro Neurologic: No numbness, No tingling and No weakness Exam Const General: cooperative Orientation: alert and oriented x3 HENAR Head: normal to inspection Neck Neck: normal visual inspection and full ROM Chest Chest palpation inspection: normal inspection of the chest Resp Effort Inspection: normal respiratory effort Auscultation: clear to auscultation bilaterally Cardio Rate: regular rate Rhythm: regular rhythm GI Inspection: non-distended Palpation: soft and nontender Skin General: no rashes or lesions noted Neuro General: patient alert and patient oriented x3 Extrem General: full ROM Psych Appearance: grossly normal Mental Status: mental status grossly normal Assessment and Plan Assessment and Plan (1) Epigastric pain: Status: Acute Plan: Patient is having a lot of epigastric pain and she did have coffee-ground emesis as well as black stools. She was started on Carafate but does not report this helped. I am starting her on a PPI immediately and I will also order a gallbladder ultrasound to ensure that this is not her gallbladder. We will plan for EGD to evaluate the stomach. I explained endoscopy in detail to the patient. I explained the risks including but not limited to stroke or heart attack with anesthesia, perforation of the GI tract, bleeding, infection. I explained that any of these could necessitate further emergency surgery. The patient understands and all questions were answered sufficiently. The patient wishes to proceed with procedure. Percy Mccauley MD Pager: [facility] [address] [place] [address], [address] [place] [address] Office: Orders: Orders Gallbladder Today R10.13 - Epigastric pain EGD Today R10.13 - Epigastric pain Medications: New (more content not included)... Normal [facility] CNOVon 04-15-2023 CNOV Office Visit ([facility] ) JACY CARROLL ([id number]) 1990 F Date Time Provider Department 04/15/23 12:35 PM RIKI STEARNS During your visit today, we recorded the following information about you: Temperature Pulse Respiration Blood pressure 97.8 degrees 72/minute 18/minute 107/66 Weight Height 70.3 kg 1.6 m Riki Stearns PA-C 04/15/2023 1:01 PM Signed urgical mask, face shield, N95, and gloves worn for all in-person care. 04/15/2023 Patient presents with: Sinusitis: Sore throat, sinus congestion, bilateral ear drainage, going for 2wks and getting worse, SUBJECTIVE: This is a 33 year old that is here today for concern for URI symptoms. The patient complains of cough and sinus congestion/pressure/dr vela x 2 weeks. Denies fever, chills, sweats, or fatigue. Patient denies wheezing, shortness of breath, increased WOB, or chest pain. COVID exposure: none Influenza exposure: none RSV exposure: none Covid Immunization Dates Overdue - Covid-19 Vaccine (1) Never done No completion, postpone, frequency change, or communication history exists for this topic. COVID vaccine this year: none Influenza vaccine this year: none RSV vaccine this year: none Asthma: none Pneumonia: none Tobacco: none Pain on scale of 0-10 with 0 being no pain and 10 being greatest pain: - Nothing makes the symptoms better. Nothing makes them worse. Self-treatment:. none The severity is mild and the symptoms are not improving. The patient did not have a similar problem in the last 3 months. The patient did not take any antibiotics in the last 3 months. Barriers to learning: none. Reviewed meds, OTCs, herbals or supplements. Reviewed allergies, medications, social history, and past medical history. PAST MEDICAL HISTORY Diagnosis Date Psychiatric disorder anxiety /depression ALLERGIES Penicillin MEDICATIONS Current Outpatient Medications Medication Sig FLUoxetine HCl 20 mg tablet doxycycline monohydrate (MONODOX) 100 mg capsule Take 1 capsule by mouth two times a day for 7 days. No current facility-administered medications for this visit. Medications and allergies reviewed by this provider. SOCIAL HISTORY Social History Tobacco Use Smoking status: Never Smokeless tobacco: Never Vaping Use Vaping Use: Never used Substance Use Topics Alcohol use: Yes Comment: Socially Drug use: No REVIEW OF SYSTEMS Review of Systems ROS: constitutional: neg, HENT-sinus symptoms, Eyes- neg, heart-neg, respiratory-Cough, GI-neg, -neg, skin-neg, Allergy- neg, lymph-neg, neuro-neg, psych-neg- All systems neg except as noted above in HPI. OBJECTIVE: BP 107/66 (BP Site: Right Arm, BP Position: Sitting, BP Cuff Size: Regular Adult) Pulse 72 Temp 36.6 ?C (97.8 ?F) (Right Tympanic) Resp 18 Ht 160 cm (5' 3) Wt 70.3 kg (154 lb 15.7 oz) LMP (LMP Unknown) SpO2 95% BMI 27.45 kg/m? . Vital signs reviewed by this provider. Physical Exam Vitals reviewed. Constitutional: General: She is not in acute distress. Appearance: Normal appearance. She is well-developed and normal weight. She is not ill-appearing, toxic-appearing or diaphoretic. HENT: Head: Normocephalic and atraumatic. No right periorbital erythema or left periorbital erythema. Salivary Glands: Right salivary gland is not diffusely enlarged or tender. Left salivary gland is not diffusely enlarged or tender. Right Ear: Ear canal and external ear normal. A middle ear effusion is present. Left Ear: Ear canal and external ear normal. A middle ear effusion is present. Nose: Congestion and rhinorrhea present. Right Sinus: Maxillary sinus tenderness present. No frontal sinus tenderness. Left Sinus: Maxillary sinus tenderness present. No frontal sinus tenderness. Mouth/Throat: Lips: Woodruff. No lesions. Mouth: Mucous membranes are moist. No oral lesions. Dentition: No gum lesions. Tongue: No lesions. Tongue does not deviate from midline. Palate: No mass and lesions. Pharynx: Oropharynx is clear. No pharyngeal swelling, oropharyngeal exudate, posterior oropharyngeal erythema or uvula swelling. Tonsils: No tonsillar exudate or tonsillar abscesses. Eyes: General: Lids are normal. No scleral icterus. Right eye: No discharge. Left eye: No discharge. Extraocular Movements: Extraocular movements intact. Conjunctiva/sclera: Conjunctivae normal. Pupils: Pupils are equal, round, and reactive to light. Pupils are equal. Cardiovascular: Rate and Rhythm: Normal rate and regular rhythm. Heart sounds: Normal heart sounds. Pulmonary: Effort: Pulmonary effort is normal. Breath sounds: Normal breath sounds and air entry. Musculoskeletal: Cervical back: Full passive range of motion without pain. No spinous process tenderness or muscular tenderness. Lymphadenopathy: Head: Right side of head: No s (more content not included)... Normal [facility] COVID AND INFLUENZA A/B AND RSV NAAT, ROUTINEon 04-15-2023 SARS-CoV-2 (COVID-19) RNA SALO+probe Ql (Unsp spec) COVID 19 RESULT: Not detected The method used is RT-PCR or an equivalent NAAT method. Reference Range (the expected result in uninfected individuals): Not detected INFLUENZA A PCR: Not detected INFLUENZA B PCR: Not detected RSV PCR: Not detected Normal [facility] Comment on above: Performed By: #### C VFLRS #### [facility] CLIA [id number] [address] [place], [place] [address] [address] [place] STREP A MOLECULAR (POC)on Procedural Control Valid [facility] Strep A (POCT) Negative Negative [facility] Absolute lymphocyte countOrd ered By: Karen Gupta on 12-12-2022 Lymphocytes Auto (Unsp spec) [#/Vol] 1.75 10*3/uL 0.83-4.51 [facility] Basophil percentageOrdered B y: Karen Gupta on 12-12-2022 Basophils/100 WBC (Bld) 0.9 % 0-1 [facility] Bilirubin [Mass/Vol] 0.50 mg/dL 0.20-1.00 [facility] Comment on above: For patients on eltr ombopag therapy, use of Dimension [place] TBIL is not recommended. Chloride [Moles/Vol] 106 mmol/L 98-107 [facility] Cholesterol [Mass/Vol] 193 mg/dL <200 [facility] Comment on above: <200 mg/dL Desirable 200-240 mg/dL Borderline >240 mg/dL High Risk Eosinophils/100 WBC (Bld) 1.0 % 0-5 [facility] Glucose [Mass/Vol] 85 mg/dL 74-106 [facility] Neutrophils (Bld) [#/Vol] 3.5 10*3/uL 2.0-7.7 [facility] Neutrophils/100 WBC (Bld) 59.3 % 47-70 [facility] Potassium [Moles/Vol] 4.1 mmol/L 3.5-5.1 [facility] Protein [Mass/Vol] 7.7 g/dL 6.4-8.2 [facility] Sodium [Moles/Vol] 136 mmol/L 136-145 [facility] Triglyceride [Mass/Vol] 87 mg/dL <199 [facility] Comment on above: The drugs N-Acetylcy steine and Metamizole may falsely depress this assay.Serum Triglycerides Reference Interval Normal <150 mg/dL Borderline high 150 - 199 mg/dL High 200 - 499 mg/dL Very High > or = 500 mg/dL WBC (Bld) [#/Vol] 5.9 10*3/uL 4.4-11.0 [facility] Blood erythrocytes count (nu mber/volume)Ordered By: Karen Candy on 12-12-2022 RBC (Bld) [#/Vol] 4.71 10*6/uL 4.2-5.[address] [facility] Blood hemoglobin measurement (mass/volume)Ordered By: Karen Dangke on 12-12-2022 Hemoglobin (Bld) [Mass/Vol] 13.4 g/dL 12.0-15.0 [facility] Blood lymphocytes/100 leukoc ytesOrdered By: Karen Dangke on 12-12-2022 Lymphocytes/100 WBC (Bld) 29.8 % 19-41 [facility] Blood monocytes/100 leukocyt esOrdered By: Karen Dangke on 12-12-2022 Monocytes/100 WBC (Bld) 8.7 % 0-10 [facility] Blood platelet mean volumeOr dered By: Karen Dangke on 12-12-2022 Platelet mean volume (Bld) [Entitic vol] 9.9 fL 6.2-12.0 [facility] CBC W/Diff, Automatedon 11-18 Absolute Lymph 1.75 X10 3/uL Normal 0.83-4.51 [facility] Comment on above: Order Comment: Order Date: 12/12/22 Order Info: [id number] - CBCD Performed By: #### L [id number], L506.1000, L500.4050, L500.4100, L100.0100 #### [facility] [address] [place], [address] Absolute Neut 3.5 X10 3/uL Normal 2.0-7.7 [facility] Comment on above: Order Comment: Order Date: 12/12/22 Order Info: [id number] - CBCD Performed By: #### L [id number], L506.1000, L500.4050, L500.4100, L100.0100 #### [facility] [address] [place], [address] Basophils/100 WBC (Bld) 0.9 % Normal 0-1 [facility] Comment on above: Order Comment: Order Date: 12/12/22 Order Info: [id number] - CBCD Performed By: #### L [id number], L506.1000, L500.4050, L500.4100, L100.0100 #### [facility] [address] [place], [address] Eosinophils/100 WBC (Bld) 1.0 % Normal 0-5 [facility] Comment on above: Order Comment: Order Date: 12/12/22 Order Info: [id number] - CBCD Performed By: #### L [id number], L506.1000, L500.4050, L500.4100, L100.0100 #### [facility] [address] [place], [address] Erythrocyte distribution width (RBC) [Ratio] 14.6 % Normal 11.6-14.6 [facility] Comment on above: Order Comment: Order Date: 12/12/22 Order Info: [id number] - CBCD Performed By: #### L [id number], L506.1000, L500.4050, L500.4100, L100.0100 #### [facility] [address] [place], [address] Hematocrit (Bld) [Volume fraction] 42.9 % Normal 37-47 [facility] Comment on above: Order Comment: Order Date: 12/12/22 Order Info: [id number] - CBCD Performed By: #### L 501.9520, L506.1000, L500.4050, L500.4100, L100.0100 #### [facility] [address] [place], [address] Hemoglobin (Bld) [Mass/Vol] 13.4 g/dL Normal 12.0-15.0 [facility] Comment on above: Order Comment: Order Date: 12/12/22 Order Info: [id number] - CBCD Performed By: #### L 501.9520, L506.1000, L500.4050, L500.4100, L100.0100 #### [facility] [address] [place], [address] IG% 0.300 Normal 0.0-0.9 [facility] Comment on above: Order Comment: Order Date: 12/12/22 Order Info: [id number] - CBCD Result Comment: IG% - Immature Granulocytes (promyelocytes, myelocytes and metamyelocytes) > 1% indicates that a LEFT SHIFT is Present. Performed By: #### L 501.9520, L506.1000, L500.4050, L500.4100, L100.0100 #### [facility] [address] [place], [address] Lymphocytes/100 WBC (Bld) 29.8 % Normal 19-41 [facility] Comment on above: Order Comment: Order Date: 12/12/22 Order Info: [id number] - CBCD Performed By: #### L 501.9520, L506.1000, L500.4050, L500.4100, L100.0100 #### [facility] [address] [place], [address] MCH (RBC) [Entitic mass] 28.5 pg Normal 27.0-32.0 [facility] Comment on above: Order Comment: Order Date: 12/12/22 Order Info: [id number] - CBCD Performed By: #### L 501.9520, L506.1000, L500.4050, L500.4100, L100.0100 #### [facility] [address] [place], [address] MCHC (RBC) [Mass/Vol] 31.2 g/dL Low 32-36 [facility] Comment on above: Order Comment: Order Date: 12/12/22 Order Info: [id number] - CBCD Performed By: #### L 501.9520, L506.1000, L500.4050, L500.4100, L100.0100 #### [facility] [address] [place], [address] MCV (RBC) [Entitic vol] 91.1 fL Normal 81-99 [facility] Comment on above: Order Comment: Order Date: 12/12/22 Order Info: [id number] - CBCD Performed By: #### L 501.9520, L506.1000, L500.4050, L500.4100, L100.0100 #### [facility] [address] [place], [address] Monocytes/100 WBC (Bld) 8.7 % Normal 0-10 [facility] Comment on above: Order Comment: Order Date: 12/12/22 Order Info: [id number] - CBCD Performed By: #### L 501.9520, L506.1000, L500.4050, L500.4100, L100.0100 #### [facility] [address] [place], [address] Neutrophils/100 WBC (Bld) 59.3 % Normal 47-70 [facility] Comment on above: Order Comment: Order Date: 12/12/22 Order Info: [id number] - CBCD Performed By: #### L 501.9520, L506.1000, L500.4050, L500.4100, L100.0100 #### [facility] [address] [place], [address] Nucleated RBC (Bld) [#/Vol] 0 10*3/uL Normal 0-5 [facility] Comment on above: Order Comment: Order Date: 12/12/22 Order Info: [id number] - CBCD Performed By: #### L 501.9520, L506.1000, L500.4050, L500.4100, L100.0100 #### [facility] [address] [place], [address] Platelet mean volume (Bld) [Entitic vol] 9.9 fL Normal 6.2-12.0 [facility] Comment on above: Order Comment: Order Date: 12/12/22 Order Info: [id number] - CBCD Performed By: #### L 501.9520, L506.1000, L500.4050, L500.4100, L100.0100 #### [facility] [address] [place], [address] Platelets (Bld) [#/Vol] 227 10*3/uL Normal 150-450 [facility] Comment on above: Order Comment: Order Date: 12/12/22 Order Info: [id number] - CBCD Performed By: #### L 501.9520, L506.1000, L500.4050, L500.4100, L100.0100 #### [facility] [address] [place], [address] RBC (Bld) [#/Vol] 4.71 10*6/uL Normal 4.2-5.[address] [facility] Comment on above: Order Comment: Order Date: 12/12/22 Order Info: [id number] - CBCD Performed By: #### L 501.9520, L506.1000, L500.4050, L500.4100, L100.0100 #### [facility] [address] [place], [address] RDW SD 49.4 fl High 35.1-43.9 [facility] Comment on above: Order Comment: Order Date: 12/12/22 Order Info: [id number] - CBCD Performed By: #### L 501.9520, L506.1000, L500.4050, L500.4100, L100.0100 #### [facility] [address] [place], [address] WBC (Bld) [#/Vol] 5.9 10*3/uL Normal 4.4-11.0 [facility] Comment on above: Order Comment: Order Date: 12/12/22 Order Info: [id number] - CBCD Performed By: #### L 501.9520, L506.1000, L500.4050, L500.4100, L100.0100 #### [facility] [address] [place], [address] Comprehensive Metabolic Prof ilon 12-12-2022 Albumin [Mass/Vol] 3.7 g/dL Normal 3.2-5.0 [facility] Comment on above: Order Comment: Order Date: 12/12/22Order Info: [id number] - CMPOrder Info: [id number] - LIPIDOrder Info: [id number] - TSH Performed By: #### L 501.9520, L506.1000, L500.4050, L500.4100, L100.0100 ####[facility] [address] [place], [address] Albumin/Globulin [Mass ratio] 0.9 {ratio} Normal 0.9-2.4 [facility] Comment on above: Order Comment: Order Date: 12/12/22Order Info: [id number] - CMPOrder Info: [id number] - LIPIDOrder Info: 3 - TSH Performed By: #### L 501.9520, L506.1000, L500.4050, L500.4100, L100.0100 ####[facility] [address] [place], [address] ALK P 58 U/L Normal 45-117 [facility] Comment on above: Order Comment: Order Date: 12/12/22Order Info: [id number] - CMPOrder Info: [id number] - LIPIDOrder Info: [id number] - TSH Performed By: #### L 501.9520, L506.1000, L500.4050, L500.4100, L100.0100 ####[facility] [address] [place], [address] ALT [Catalytic activity/Vol] 21 U/L Normal 13-56 [facility] Comment on above: Order Comment: Order Date: 12/12/22Order Info: [id number] - CMPOrder Info: [id number] - LIPIDOrder Info: [id number] - TSH Performed By: #### L 501.9520, L506.1000, L500.4050, L500.4100, L100.0100 ####[facility] [address] [place], [address] AST [Catalytic activity/Vol] 17 U/L Normal 15-37 [facility] Comment on above: Order Comment: Order Date: 12/12/22Order Info: [id number] - CMPOrder Info: [id number] - LIPIDOrder Info: [id number] - TSH Performed By: #### L 501.9520, L506.1000, L500.4050, L500.4100, L100.0100 ####[facility] [address] [place], [address] Bilirubin [Mass/Vol] 0.50 mg/dL Normal 0.20-1.00 [facility] Comment on above: Order Comment: Order Date: 12/12/22Order Info: [id number]- - CMPOrder Info: [id number] - LIPIDOrder Info: [id number] - TSH Result Comment: For patients on eltrombopag therapy, use of Dimension [place] TBIL is not recommended. Performed By: #### L 501.9520, L506.1000, L500.4050, L500.4100, L100.0100 ####[facility] [address] [place], [address] BUN/CRE 13.0 RATIO Normal 10-20 [facility] Comment on above: Order Comment: Order Date: 12/12/22Order Info: [id number]- - CMPOrder Info: [id number] - LIPIDOrder Info: [id number] - TSH Performed By: #### L 501.9520, L506.1000, L500.4050, L500.4100, L100.0100 ####[facility] [address] [place], [address] CA,Total 8.9 mg/dL Normal 8.5-10.1 [facility] Comment on above: Order Comment: Order Date: 12/12/22Order Info: [id number] - CMPOrder Info: [id number] - LIPIDOrder Info: [id number] - TSH Performed By: #### L 501.9520, L506.1000, L500.4050, L500.4100, L100.0100 ####[facility] [address] [place], [address] Chloride [Moles/Vol] 106 mmol/L Normal 98-107 [facility] Comment on above: Order Comment: Order Date: 12/12/22Order Info: [id number] - CMPOrder Info: [id number] - LIPIDOrder Info: 3 - TSH Performed By: #### L 501.9520, L506.1000, L500.4050, L500.4100, L100.0100 ####[facility] [address] [place], [address] CO2 [Moles/Vol] 25.0 mmol/L Normal 21.0-32.0 [facility] Comment on above: Order Comment: Order Date: 12/12/22Order Info: [id number] - CMPOrder Info: [id number] - LIPIDOrder Info: 3 - TSH Performed By: #### L 501.9520, L506.1000, L500.4050, L500.4100, L100.0100 ####[facility] [address] [place], [address] Creatinine [Mass/Vol] 0.92 mg/dL Normal 0.55-1.02 [facility] Comment on above: Order Comment: Order Date: 12/12/22Order Info: [id number] - CMPOrder Info: [id number] - LIPIDOrder Info: [id number] - TSH Result Comment: The validity of the calculated GFR GFRAA in patients over 70 years has not been determined. Clinical correlation is essential. Performed By: #### L 501.9520, L506.1000, L500.4050, L500.4100, L100.0100 ####[facility] [address] [place], [address] EST GFR - AA 90 mL/min Normal >60 [facility] Comment on above: Order Comment: Order Date: 12/12/22Order Info: [id number]- - CMPOrder Info: [id number] - LIPIDOrder Info: [id number] - TSH Result Comment: Afri can Gambian GFR Calc Performed By: #### L 501.9520, L506.1000, L500.4050, L500.4100, L100.0100 ####[facility] [address] [place], [address] GAP 5 Normal 5-15 [facility] Comment on above: Order Comment: Order Date: 12/12/22Order Info: [id number] - CMPOrder Info: - LIPIDOrder Info: 3 - TSH Performed By: #### L 501.9520, L506.1000, L500.4050, L500.4100, L100.0100 ####[facility] [address] [place], [address] GFR/1.73 sq M.predicted among non-blacks MDRD (S/P/Bld) [Vol rate/Area] 74 mL/min/{1.73_m2} Normal >60 [facility] Comment on above: Order Comment: Order Date: 12/12/22Order Info: [id number] - CMPOrder Info: [id number] - LIPIDOrder Info: [id number] - TSH Result Comment: Non- GFR Calc Performed By: #### L 501.9520, L506.1000, L500.4050, L500.4100, L100.0100 ####[facility] [address] [place], [address] Globulin (S) [Mass/Vol] 4.0 g/dL Normal 2.2-4.2 [facility] Comment on above: Order Comment: Order Date: 12/12/22Order Info: [id number] - CMPOrder Info: [id number] - LIPIDOrder Info: [id number] - TSH Performed By: #### L 501.9520, L506.1000, L500.4050, L500.4100, L100.0100 ####[facility] [address] [place], [address] Glucose [Mass/Vol] 85 mg/dL Normal 74-106 [facility] Comment on above: Order Comment: Order Date: 12/12/22Order Info: [id number] - CMPOrder Info: [id number] - LIPIDOrder Info: [id number] - TSH Performed By: #### L 501.9520, L506.1000, L500.4050, L500.4100, L100.0100 ####[facility] [address] [place], [address] Potassium [Moles/Vol] 4.1 mmol/L Normal 3.5-5.1 [facility] Comment on above: Order Comment: Order Date: 12/12/22Order Info: [id number] - CMPOrder Info: [id number] - LIPIDOrder Info: 3 - TSH Performed By: #### L 501.9520, L506.1000, L500.4050, L500.4100, L100.0100 ####[facility] [address] [place], [address] Sodium [Moles/Vol] 136 mmol/L Normal 136-145 [facility] Comment on above: Order Comment: Order Date: 12/12/22Order Info: [id number] - CMPOrder Info: [id number] - LIPIDOrder Info: 3 - TSH Performed By: #### L 501.9520, L506.1000, L500.4050, L500.4100, L100.0100 ####[facility] [address] [place], [address] T PROT 7.7 g/dL Normal 6.4-8.2 [facility] Comment on above: Order Comment: Order Date: 12/12/22Order Info: [id number] - CMPOrder Info: [id number] - LIPIDOrder Info: 3 - TSH Performed By: #### L 501.9520, L506.1000, L500.4050, L500.4100, L100.0100 ####[facility] [address] [place], [place], [address] Urea nitrogen [Mass/Vol] 12 mg/dL Normal 7-18 [facility] Comment on above: Order Comment: Order Date: 12/12/22Order Info: [id number] - CMPOrder Info: [id number] - LIPIDOrder Info: [id number] - TSH Performed By: #### L 501.9520, L506.1000, L500.4050, L500.4100, L100.0100 ####[facility] [address] [place], [place], [address] Determination of erythrocyte mean corpuscular volume (MCV)Ordered By: Karen Gupta on 12-12-2022 MCV (RBC) [Entitic vol] 91.1 fL 81-99 [facility] Hematocrit Auto (Bld) [Volum e fraction]Ordered By: Karen Gupta on 12-12-2022 Hematocrit (Bld) [Volume fraction] 42.9 % 37-47 [facility] Laboratory - Chemistry and C hemistry - challengeOrdered By: Karen Gupta on 12-12-2022 ALP [Catalytic activity/Vol] 58 U/L 45-117 [facility] ALT [Catalytic activity/Vol] 21 U/L 13-56 [facility] CO2 [Moles/Vol] 25.0 mmol/L 21.0-32.0 [facility] Globulin (S) [Mass/Vol] 4.0 g/dL 2.2-4.2 [facility] Urea nitrogen/Creatinine [Mass ratio] 13.0 mg/mg 10-20 [facility] - Hematology and Cell countsOrdered By: Karen Gupta on 12-12-2022 Erythrocyte distribution width (RBC) [Entitic vol] 49.4 fL 35.1-43.9 [facility] Erythrocyte distribution width (RBC) [Ratio] 14.6 % 11.6-14.6 [facility] Immature granulocytes/100 WBC (Bld) 0.300 % 0.0-0.9 [facility] Comment on above: IG% - Immature Granu locytes (promyelocytes, myelocytes and metamyelocytes) > 1% indicates that a LEFT SHIFT is Present. MCH (RBC) [Entitic mass] 28.5 pg 27.0-32.0 [facility] Nucleated RBC/100 WBC (Bld) [Ratio] 0 % 0-5 [facility] Lipid Profileon 12-12-2022 Cholesterol [Mass/Vol] 193 mg/dL Normal 200 [facility] Comment on above: Order Comment: Order Date: 12/12/22Order Info: 07- - CMPOrder Info: [id number] - LIPIDOrder Info: [id number] - TSH Result Comment: <200 mg/dL Desirable 200-240 mg/dL Borderline >240 mg/dL High Risk Performed By: #### L 501.9520, L506.1000, L500.4050, L500.4100, L100.0100 ####[facility] [address] [place], [address] Cholesterol in HDL [Mass/Vol] 58 mg/dL Normal [facility] Comment on above: Order Comment: Order Date: 12/12/22Order Info: [id number] - CMPOrder Info: [id number] - LIPIDOrder Info: [id number] - TSH Result Comment: The drugs N-Acetylcysteine and Metamizole may falsely depress this assay. Reference Range HDL <40 mg/dL Low HDL Cholesterol HDL >or= 60 mg/dL High HDL Cholesterol Performed By: #### L 501.9520, L506.1000, L500.4050, L500.4100, L100.0100 ####[facility] [address] [place], [address] Cholesterol in LDL [Mass/Vol] 118 mg/dL Normal 0-130 [facility] Comment on above: Order Comment: Order Date: 12/12/22Order Info: 07- - CMPOrder Info: [id number] - LIPIDOrder Info: [id number] - TSH Performed By: #### L 501.9520, L506.1000, L500.4050, L500.4100, L100.0100 ####[facility] [address] [place], [address] Cholesterol in VLDL [Mass/Vol] 17 mg/dL Normal 5-40 [facility] Comment on above: Order Comment: Order Date: 12/12/22Order Info: [id number] - CMPOrder Info: [id number] - LIPIDOrder Info: [id number] - TSH Performed By: #### L 501.9520, L506.1000, L500.4050, L500.4100, L100.0100 ####[facility] [address] [place], [address] Triglyceride [Mass/Vol] 87 mg/dL Normal [facility] Comment on above: Order Comment: Order Date: 12/12/22Order Info: [id number] - CMPOrder Info: [id number] - LIPIDOrder Info: [id number] - TSH Result Comment: The drugs N-Acetylcysteine and Metamizole may falsely depress this assay. Serum Triglycerides Reference Interval Normal <150 mg/dL Borderline high 150 - 199 mg/dL High 200 - 499 mg/dL Very High > or = 500 mg/dL Performed By: #### L 501.9520, L506.1000, L500.4050, L500.4100, L100.0100 ####[facility] [address] [place], [address] MCHC Auto (RBC) [Mass/Vol]Or dered By: Karen Gupta on 12-12-2022 MCHC (RBC) [Mass/Vol] 31.2 g/dL 32-36 [facility] No Panel InformationOrdered By: Karen Gupta on 12-12-2022 Estimated GFR (MDRD) Amer 90 mL/min >60 [facility] Comment on above: GFR Calc Estimated GFR (MDRD) Non-Af Amer 74 mL/min >60 [facility] Comment on above: Non- GFR Calc Thyroid Stimulating Hormone (TSH) 3.32 uIU/mL 0.358-3.74 [facility] Vitamin D 25-Hydroxy 45.3 ng/mL [facility] Comment on above: Vitamin D 25(OH) Sta tus Range Deficiency <20 ng/mL (50nmol/L) Insufficiency 20 - 30 ng/mL (50 - 75 nmol/L) Sufficiency 30 - 100 ng/mL (75 - 250 nmol/L) Toxicity >100 ng/mL (>250 nmol/L) Platelets bldOrdered By: Mague Gupta on 12-12-2022 Platelets (Bld) [#/Vol] 227 10*3/uL 150-450 [facility] Serum or plasma albumin nelly urement (mass/volume)Ordered By: Karen Gupta on 12-12-2022 Albumin [Mass/Vol] 3.7 g/dL 3.2-5.0 [facility] Serum or plasma albumin/glob ulin mass ratioOrdered By: Karen Gupta on 12-12-2022 Albumin/Globulin [Mass ratio] 0.9 {ratio} 0.9-2.4 [facility] Serum or plasma calcium nelly urement (mass/volume)Ordered By: Karen Gupta on 12-12-2022 Calcium [Mass/Vol] 8.9 mg/dL 8.5-10.1 [facility] Serum or plasma cholesterol in HDL measurement (mass/volume)Ordered By: Karen Gupta on 12-12-2022 Cholesterol in HDL [Mass/Vol] 58 mg/dL >40 [facility] Comment on above: The drugs N-Acetylcy steine and Metamizole may falsely depress this assay. Reference Range HDL <40 mg/dL Low HDL Cholesterol HDL >or= 60 mg/dL High HDL Cholesterol Serum or plasma cholesterol in VLDL measurement (mass/volume)Ordered By: Karen Gupta on 12-12-2022 Cholesterol in VLDL [Mass/Vol] 17 mg/dL 5-40 [facility] Serum or plasma creatinine m easurement (mass/volume)Ordered By: Karen Gupta on 12-12-2022 Creatinine [Mass/Vol] 0.92 mg/dL 0.55-1.02 [facility] Comment on above: The validity of the calculated GFR & GFRAA in patients over 70 years has not been determined. Clinical correlation is essential. Serum or plasma low density lipoprotein (LDL) cholesterol measurement (mass/volume)Ordered By: Karen Gupta on 12-12-2022 Cholesterol in LDL [Mass/Vol] 118 mg/dL 0-130 [facility] Serum or plasma urea nitroge n measurement (mass/volume)Ordered By: Karen Gupta on 12-12-2022 Urea nitrogen [Mass/Vol] 12 mg/dL 7-18 [facility] Thin prep Papanicolaou smear with manual screeningOrdered By: Demarcuspollo Candy on 12-12-2022 Thin prep Papanicolaou smear with manual screening 17 U/L 15-37 [facility] Thin prep Papanicolaou smear with manual screening 5 5-15 [facility] Thyroid Stim Hormone (TSH)on 12-12-2022 TSH 3.32 uIU/mL Normal 0.358-3.74 [facility] Comment on above: Order Comment: Order Date: 12/12/22Order Info: [id number] - CMPOrder Info: [id number] - LIPIDOrder Info: [id number] - TSH Performed By: #### L 501.9520, L506.1000, L500.4050, L500.4100, L100.0100 ####[facility] [address] [place], [place], [id number] Vitamin D,25 Hydroxyon 12-12 Vitamin D 25-OH 45.3 ng/mL Normal [facility] Comment on above: Order Comment: Order Date: 12/12/22 Order Info: [id number] - [id number] Result Comment: Sharon min D 25(OH) Status Range Deficiency <20 ng/mL (50nmol/L) Insufficiency 20 - 30 ng/mL (50 - 75 nmol/L) Sufficiency 30 - 100 ng/mL (75 - 250 nmol/L) Toxicity >100 ng/mL (>250 nmol/L) Performed By: #### L 501.9520, L506.1000, L500.4050, L500.4100, L100.0100 #### [facility] [address] [place], [place], [address] CNOVon 12-11-2022 CNOV Office Visit ([facility]ALK[facility] ) JACY CARROLL ([id number]) 1990 F Date Time Provider Department 12/11/22 3:10 PM JUDIT JACKSON During your visit today, we recorded the following information about you: Pulse Respiration Blood pressure Weight 63/minute 16/minute 95/60 68.7 kg Height 1.6 m Judit Jackson APRN.CERTIFIED ORTHOTIC FITTER 12/11/2022 3:33 PM Addendum This note was created using Zoeticxriter. Subjective Jacy Carroll is a 32 year old female. HPI by patient: Jacy Carroll is a 32 year old presenting to the office with the complaint of right eye irritation Started this morning. Associated symptoms include itching of the eye. Feels she has drainage. Wears contacts, did remove and throw away. Has baseline of light sensitivity. Knows it will get worse, I don't want to have to come back. No headache or dizziness. Denies uri symptoms and fever. Covid Immunization Dates Overdue - Covid-19 Vaccine (1) Overdue - never done No completion, postpone, frequency change, or communication history exists for this topic. Sick contacts: daughter. Smoking history/second hand smoke: none. OTC not used. No antibiotic use in the last 60 days. ALLERGIES Penicillin Other: See Comments Comment:Throat closes Family History Reviewed Including Cardiac Diseases, Psychiatric Diseases, AND Substance Abuse Problem: Stroke Relation: Mother Age of Onset: (Not Specified) Problem: Arthritis Relation: Maternal Grandmother Age of Onset: (Not Specified) Comment: rumatoid Problem: Arthritis Relation: Maternal Grandfather Age of Onset: (Not Specified) Comment: rumatoid Problem: Heart Failure Relation: Paternal Grandmother Age of Onset: (Not Specified) Comment: Problem: Heart Failure Relation: Paternal Grandfather Age of Onset: (Not Specified) Comment: Social History Tobacco Use Smoking status: Never Smokeless tobacco: Never Vaping Use Vaping Use: Never used Alcohol use: Yes Comment: Socially Drug use: No Active Ambulatory Problems No Active Ambulatory Problems Resolved Ambulatory Problems No Resolved Ambulatory Problems Past Medical History: No date: Psychiatric disorder Review of Systems Constitutional: Negative. HENT: Negative. Eyes: Positive for itching. Negative for redness and visual disturbance. Respiratory: Negative. Cardiovascular: Negative. Gastrointestinal: Negative. Endocrine: Negative. Genitourinary: Negative. Musculoskeletal: Negative. Skin: Negative. Neurological: Negative. Hematological: Negative. Objective BP 95/60 Pulse 63 Resp 16 Ht 160 cm (5' 3) Wt 68.7 kg (151 lb 8 oz) LMP 08/09/2022 (Approximate) SpO2 98% BMI 26.84 kg/m? Physical Exam Vitals reviewed. Constitutional: General: She is not in acute distress. Appearance: She is not ill-appearing, toxic-appearing or diaphoretic. HENT: Head: Normocephalic and atraumatic. Right Ear: Tympanic membrane, ear canal and external ear normal. Left Ear: Tympanic membrane, ear canal and external ear normal. Nose: Nose normal. Eyes: Extraocular Movements: Extraocular movements intact. Conjunctiva/sclera: Conjunctivae normal. Pupils: Pupils are equal, round, and reactive to light. Cardiovascular: Rate and Rhythm: Normal rate and regular rhythm. Pulmonary: Effort: Pulmonary effort is normal. Breath sounds: Normal breath sounds. Psychiatric: Behavior: Behavior is cooperative. Assessment and Plan (H57.89) Irritation of right eye (primary encounter diagnosis) Plan: trimethoprim-polymyxin (POLYTRIM) 10,000 unit- 1 mg/mL ophthalmic solution -Polytrim drops. -Wash hands before and after touching the eye. Do not rub the eye. -Warm compress to remove any drainage if there is any. Cool compress for comfort or itchiness. -If you have bacterial conjunctivitis, pink eye, you are contagious for 24 hours after starting drops. No close facial contact during this time. -If you wear contacts dispose of old contacts and open a new pair after treatment is complete; typically after 7 days. -If no improvement in 48 hours please follow up with Ophthalmology -Warning symptoms: sudden loss of vision, sharp eye pain, sudden blurry vision, dizziness. -Be seen immediately with warning symptoms. The patient will pursue further outpatient evaluation with the primary care physician or another Urgent Care/Express Care as outlined in the after visit summary. The patient is agreeable to this plan of care and follow-up instructions have been explained in detail. The patient has received these instructions in written format and have expressed an understanding of the after visit summary. Medical Decision Making: Level: 4 - Moderate I spent a total of 20 minutes on the date of the service which included preparing to see the patient, [id number] patient care, completing (more content not included)... Normal [facility] RAPID BACT VAGINOSIS (AK)on 08-23-2022 Bacterial sialidase Ql (Unsp spec) Negative Negative for the presence of bacterial vaginosis. [facility] TRICHOMONAS PREP/ANTIGENon 0 08-23-2022 T. vaginalis Ag IA Ql (Genital specimen) Negative Negative for Trichomonas Antigen [facility] UA DIP, URINE (POC)on 2022 BILIRUBIN UA (POCT) Negative Negative [facility] CLARITY UA (POCT) Clear [facility] COLOR UA (POCT) Yellow [facility] GLUCOSE UA (POCT) Negative Negative mg/dL [facility] HEMOGLOBIN/BLOOD UA (POCT) Trace-intact Abnormal Negative [facility] KETONE UA (POCT) Negative Negative mg/dL [facility] LEUKOCYTES UA (POCT) Small Abnormal Negative [facility] NITRITE UA (POCT) Negative Negative [facility] PH UA (POCT) 7.5 4.5 - 8.0 [facility] Protein Ql (U) Negative Negative mg/dL [facility] SPECIFIC GRAVITY UA (POCT) 1.020 1.005 - 1.030 [facility] UROBILINOGEN UA (POCT) 0.2 E.U./dL Normal E.U./dL [facility] PELVIC US WHIon 07-06-2022 [facility] Basic Metabolic Panelon - Anion gap [Moles/Vol] 11 mmol/L 7 - 16 mmol/L [facility] Calcium [Mass/Vol] 9.3 mg/dL 8.6 - 10. 2 mg/dL [facility] Chloride [Moles/Vol] 103 mmol/L 98 - 10 7 mmol/L [facility] CO2 [Moles/Vol] 26 mmol/L 22 - 29 mmol/L [facility] Creatinine [Mass/Vol] 1 mg/dL 0.5 - 1 mg/dL [facility] GFR >60 [facility] GFR Non- >60 60 - PINF mL/min/1.73 [facility] Comment on above: Chronic Kidney Disea se: less than 60 ml/min/1.73 sq.m. Kidney Failure: less than 15 ml/min/1.73 sq.m. Results valid for patients 18 years and older. Glucose [Mass/Vol] 95 mg/dL 74 - 99 mg/dL [facility] Potassium [Moles/Vol] 4.4 mmol/L 3.5 - 5 mmol/L [facility] Sodium [Moles/Vol] 140 mmol/L 132 - 146 mmol/L [facility] Urea nitrogen (BldV) [Mass/Vol] 12 mg/dL 6 - 20 mg/dL [facility] CBC with Auto Differentialon 12-15-2021 Basophils (Bld) [#/Vol] 0.04 10*3/uL [facility] Basophils/100 WBC (Bld) 0.7 % 0 - 2 % [facility] Eosinophils Absolute 0.05 [facility] Eosinophils/100 WBC (Bld) 0.9 % 0 - 6 % [facility] Hematocrit (Bld) [Volume fraction] 41.2 % 34 - 48 % [facility] Hemoglobin (Bld) [Mass/Vol] 13.4 g/dL 11.5 - 15.5 g/dL [facility] Immature Granulocytes # 0.04 E9/L [facility] Immature granulocytes/100 WBC (Bld) 0.7 % 0 - 5 % [facility] Interpretation and review of laboratory results Abnormal [facility] Lymphocytes Absolute 1.42 Low [facility] Lymphocytes/100 WBC (Bld) 25.7 % 20 - 42 % [facility] MCH (RBC) [Entitic mass] 27.7 pg 26 - 35 pg [facility] MCHC (RBC) [Mass/Vol] 32.5 % 32 - 34.5 % [facility] MCV (RBC) [Entitic vol] 85.3 fL 80 - 99.9 fL [facility] Monocytes Absolute 0.41 [facility] Monocytes/100 WBC (Bld) 7.4 % 2 - 12 % [facility] Neutrophils Absolute 3.56 [facility] Neutrophils/100 WBC (Bld) 64.6 % 43 - 80 % [facility] Platelet distribution width (Bld) [Ratio] 15.7 fL High 11.5 - 15 fL [facility] Platelet mean volume (Bld) [Entitic vol] 9.7 fL 7 - 12 fL [facility] Platelets (Bld) [#/Vol] 249 10*3/uL [facility] RBC (Bld) [#/Vol] 4.83 10*6/uL [facility] WBC (Bld) [#/Vol] 5.5 10*3/uL [facility] CT Head WO Contraston 2021 No acute intracrania l abnormality. [facility] EXAMINATION: CT OF THE HEAD WITHOUT CONTRAST 12/15/2021 10:17 am TECHNIQUE: CT of the head was performed without the administration of intravenous contrast. Automated exposure control, iterative reconstruction, and/or weight based adjustment of the mA/kV was utilized to reduce the radiation dose to as low as reasonably achievable. COMPARISON: CT head 08/01/2021 HISTORY: ORDERING SYSTEM PROVIDED HISTORY: headache, sudden onset, right eye visual disturbance, no hx of migraines TECHNOLOGIST PROVIDED HISTORY: Reason for exam:->headache, sudden onset, right eye visual disturbance, no hx of migraines Has a code stroke or stroke alert been called?->No Decision Support Exception - unselect if not a suspected or confirmed emergency medical condition->Emergency Medical Condition (MA) FINDINGS: There are no areas of abnormal attenuation within the brain parenchyma. No evidence of mass, mass effect, or midline shift. The ventricles and sulci are of normal size and configuration. No extra-axial fluid collections or acute hemorrhage. The baxter-white differentiation appears preserved without evidence of acute cortical ischemia. The calvarium is intact. There are postoperative changes about the paranasal sinuses with minimal mucosal thickening in the remaining ethmoid sinuses. The mastoid air cells are clear. [facility] Ross Ga MD - 12/15/2021 EXAMINATION: CT OF THE HEAD WITHOUT CONTRAST 12/15/2021 10:17 am TECHNIQUE: CT of the head was performed without the administration of intravenous contrast. Automated exposure control, iterative reconstruction, and/or weight based adjustment of the mA/kV was utilized to reduce the radiation dose to as low as reasonably achievable. COMPARISON: CT head 08/01/2021 HISTORY: ORDERING SYSTEM PROVIDED HISTORY: headache, sudden onset, right eye visual disturbance, no hx of migraines TECHNOLOGIST PROVIDED HISTORY: Reason for exam:->headache, sudden onset, right eye visual disturbance, no hx of migraines Has a code stroke or stroke alert been called?->No Decision Support Exception - unselect if not a suspected or confirmed emergency medical condition->Emergency Medical Condition (MA) FINDINGS: There are no areas of abnormal attenuation within the brain parenchyma. No evidence of mass, mass effect, or midline shift. The ventricles and sulci are of normal size and configuration. No extra-axial fluid collections or acute hemorrhage. The baxter-white differentiation appears preserved without evidence of acute cortical ischemia. The calvarium is intact. There are postoperative changes about the paranasal sinuses with minimal mucosal thickening in the remaining ethmoid sinuses. The mastoid air cells are clear. IMPRESSION: No acute intracranial abnormality. [facility] Work Phone: Radiology Study observation (narrative) [facility] Work Phone: CT Head WO ContrastOrdered B y: Ross Ga on 12-15-2021 [facility] Work Phone: Magnesiumon 12-15-2021 Magnesium [Mass/Vol] 2.2 mg/dL 1.6 - 2 .6 mg/dL [facility] No Panel Informationon 12-15 [facility] , urineon 2 Beta HCG ( test) Ql (U) Negative NEGATIVE [facility] Comment on above: Test results should always be evaluated with all available clinical data. If a urine sample is too dilute, it may not containa a insurance representative urinary hCG concentration. If a negative result is obtainedand is still suspected, a first morning sample should be obtained and tested. [facility] CR Chest PA/LATon 10-18-2021 CR Chest PA/LAT Patient Name: JACY CARROLL Diagnostic Radiology ACCESSION EXAM DATE/TIME PROCEDURE ORDERING PROVIDER [id number] 10/18/2021 09:46 EDT CR Chest PA and LAT MD LEWIS NISHIT CPT code 23830 Reason For Exam (CR Chest PA and LAT) chest pain Report EXAMINATION: CHEST RADIOGRAPH CLINICAL INDICATION: Chest pain TECHNIQUE: Two views of the chest COMPARISON: None FINDINGS: Cardiomediastinal silhouette is normal. Lungs are clear. No pleural effusion or pneumothorax. No acute osseous abnormality. IMPRESSION: No acute cardiopulmonary process. Report Dictated on Final Dictated: 10/18/2021 9:54 am Dictating Physician: MD PUTNAM WASSIM OSAMA Signed Date and Time: 10/18/2021 9:55 am Signed by: MD PUTNAM WASSIM OSAMA Transcribed Date and Time: 10/18/2021 9:54 Normal [facility] CR Spine Cervical 2 or 3 Vie wson 10-18-2021 CR Spine Cervical 2 or 3 Views Patient Name: JACY CARROLL Diagnostic Radiology ACCESSION EXAM DATE/TIME PROCEDURE ORDERING PROVIDER [id number] 10/18/2021 09:46 EDT CR Spine Cervical 2 or 3 MD LEWIS NISHIT Views CPT code 59466 Reason For Exam (CR Spine Cervical 2 or 3 Views) neck strain Report EXAMINATION: CERVICAL SPINE RADIOGRAPH CLINICAL INDICATION: Neck strain TECHNIQUE: Three views COMPARISON: 12/04/2018 FINDINGS: No acute fracture or subluxation. Alignment is anatomic. Disc spaces are preserved. Prevertebral soft tissues are intact. IMPRESSION: No acute osseous abnormality. Report Dictated on Final Dictated: 10/18/2021 9:53 am Dictating Physician: MD PUTNAM WASSIM OSAMA Signed Date and Time: 10/18/2021 9:54 am Signed by: MD PUTNAM WASSIM OSAMA Transcribed Date and Time: 10/18/2021 9:[address] [facility] [address] HEAD WO CONTRASTon 2021 Patient Name: JACY BREAUX Computed Tomography ACCESSION EXAM DATE/TIME PROCEDURE ORDERING PROVIDER [id number] 10/18/2021 09:[address] Head or Brain w/o MD ZAC, WILLIAM Contrast CPT code 28559 Reason For Exam (CT Head or Brain w/o Contrast) concussion Report EXAMINATION: CT HEAD WITHOUT CONTRAST CLINICAL INDICATION: Concussion TECHNIQUE: CT of the head was performed without the administration of intravenous contrast. COMPARISON: 08/05/2020 FINDINGS: BRAIN PARENCHYMA: No acute intraparenchymal hemorrhage, acute territorial infarct or masses. MIDLINE SHIFT OR HERNIATION: No midline shift or herniation. VENTRICLES: No hydrocephalus. DURAL VENOUS SINUSES: No hyperdensity to suggest acute thrombus. EXTRA-AXIAL SPACES (epidural, subdural, subarachnoid spaces and basal cisterns): No collections. VISUALIZED ORBITS: Normal. VISUALIZED PARANASAL SINUSES AND MASTOID AIR CELLS: Paranasal sinuses are clear. Tympanomastoid cavities are aerated. SOFT TISSUES: Normal. OSSEOUS STRUCTURES: Normal. IMPRESSION: No acute intracranial abnormality. The examination was reviewed at 10/18/2021 9:56 AM EDT by Jose Alfredo Putnam MD. Computed Tomography Report Report Dictated on --- Final --- Dictated: 10/18/2021 9:56 am Dictating Physician: MD JOEY, JOSE ALFREDO GONZALEZ Signed Date and Time: 10/18/2021 9:58 am Signed by: MD PUTNAM WASSIM OSAMA Transcribed Date and Time: 10/18/2021 9:56 [facility] Jose Alfredo Putnam MD - 10/18/2021 Patient Name: JACY CARROLL Computed Tomography ACCESSION EXAM DATE/TIME PROCEDURE ORDERING PROVIDER [id number] 10/18/2021 09:[address] Head or Brain w/o MD ZAC, WILLIAM Contrast CPT code 58308 Reason For Exam (CT Head or Brain w/o Contrast) concussion Report EXAMINATION: CT HEAD WITHOUT CONTRAST CLINICAL INDICATION: Concussion TECHNIQUE: CT of the head was performed without the administration of intravenous contrast. COMPARISON: 08/05/2020 FINDINGS: BRAIN PARENCHYMA: No acute intraparenchymal hemorrhage, acute territorial infarct or masses. MIDLINE SHIFT OR HERNIATION: No midline shift or herniation. VENTRICLES: No hydrocephalus. DURAL VENOUS SINUSES: No hyperdensity to suggest acute thrombus. EXTRA-AXIAL SPACES (epidural, subdural, subarachnoid spaces and basal cisterns): No collections. VISUALIZED ORBITS: Normal. VISUALIZED PARANASAL SINUSES AND MASTOID AIR CELLS: Paranasal sinuses are clear. Tympanomastoid cavities are aerated. SOFT TISSUES: Normal. OSSEOUS STRUCTURES: Normal. IMPRESSION: No acute intracranial abnormality. The examination was reviewed at 10/18/2021 9:56 AM EDT by Jose Alfredo Putnam MD. Computed Tomography Report Report Dictated on --- Final --- Dictated: 10/18/2021 9:56 am Dictating Physician: MD JOEY, JOSE ALFREDO GONZALEZ Signed Date and Time: 10/18/2021 9:58 am Signed by: MD JOEY, JOSE ALFREDO GONZALEZ Transcribed Date and Time: 10/18/2021 9:56 [facility] Work Phone: CT HEAD WO CONTRASTOrdered B y: Jose Alfredo Putnam on 10-18-2021 [facility] Work Phone: CT Head or Brain w/o Contras ton 10-18-2021 CT Head or Brain w/o Contrast Patient Name: JACY CARROLL [facility]#: [id number] Computed Tomography ACCESSION EXAM DATE/TIME PROCEDURE ORDERING PROVIDER [id number] 10/18/2021 09:[address] Head or Brain w/o MD ZAC, WILLIAM Contrast CPT code 92574 Reason For Exam (CT Head or Brain w/o Contrast) concussion Report EXAMINATION: CT HEAD WITHOUT CONTRAST CLINICAL INDICATION: Concussion TECHNIQUE: CT of the head was performed without the administration of intravenous contrast. COMPARISON: 08/05/2020 FINDINGS: BRAIN PARENCHYMA: No acute intraparenchymal hemorrhage, acute territorial infarct or masses. MIDLINE SHIFT OR HERNIATION: No midline shift or herniation. VENTRICLES: No hydrocephalus. DURAL VENOUS SINUSES: No hyperdensity to suggest acute thrombus. EXTRA-AXIAL SPACES (epidural, subdural, subarachnoid spaces and basal cisterns): No collections. VISUALIZED ORBITS: Normal. VISUALIZED PARANASAL SINUSES AND MASTOID AIR CELLS: Paranasal sinuses are clear. Tympanomastoid cavities are aerated. SOFT TISSUES: Normal. OSSEOUS STRUCTURES: Normal. IMPRESSION: No acute intracranial abnormality. The examination was reviewed at 10/18/2021 9:56 AM EDT by Jose Alfredo Putnam MD. Computed Tomography Report Report Dictated on Final Dictated: 10/18/2021 9:56 am Dictating Physician: MD JOEY, JOSE ALFREDO GONZALEZ Signed Date and Time: 10/18/2021 9:58 am Signed by: MD JOEY, JOSE ALFREDO GONZALEZ Transcribed Date and Time: 10/18/2021 9:56 [facility] EKG 12 Lead - Chest Painon 0 10-18-2021 [facility] Test Date: 2021-10-18 [facility] Department[facility] 1CE[facility] Room: 16 Gender: F [employer] Supervisor: JUNG : 1990 Requested By: WILLIAM LEWIS Order Number: [id number] Reading : William Lewis Measurements Intervals [place] Rate: 68 P: 63 NH: 128 QRS: 16 QRSD: 83 T: 29 QT: 394 QTc: 420 Interpretive Statements Sinus rhythm Low voltage, precordial leads Electronically Signed On 10-18-2021 9:09:[address] William [address] [facility] William Lewis MD - 10/18/2021 [facility] Test Date: 2021-10-18 Pat Name: JACY [facility] Department: 1CEG Room: 16 Gender: F [employer] Supervisor: JUNG LOOMISB: 1990 Requested By: WILLIAM LEWIS Order Number: [id number] Reading : William Lewis Measurements Intervals [place] Rate: 68 P: 63 NH: 128 QRS: 16 QRSD: 83 T: 29 QT: 394 QTc: 420 Interpretive Statements Sinus rhythm Low voltage, precordial leads Electronically Signed On 10-18-2021 9:09:56 EDT by William Lewis [facility] Work Phone: [facility] Work Phone: No Panel Informationon 10-18 Radiology Study observation (narrative) [facility] Work Phone: XR CERVICAL SPINE (2-3 VIEWS )on 10-18-2021 Patient Name: JACY CARROLL Diagnostic Radiology ACCESSION EXAM DATE/TIME PROCEDURE ORDERING PROVIDER [id number] 10/18/2021 09:46 EDT CR Spine Cervical 2 or 3 MD ZAC, WILLIAM Views CPT code 91074 Reason For Exam (CR Spine Cervical 2 or 3 Views) neck strain Report EXAMINATION: CERVICAL SPINE RADIOGRAPH CLINICAL INDICATION: Neck strain TECHNIQUE: Three views COMPARISON: 12/04/2018 FINDINGS: No acute fracture or subluxation. Alignment is anatomic. Disc spaces are preserved. Prevertebral soft tissues are intact. IMPRESSION: No acute osseous abnormality. Report Dictated on --- Final --- Dictated: 10/18/2021 9:53 am Dictating Physician: MD JOEY, JOSE ALFREDO GONZALEZ Signed Date and Time: 10/18/2021 9:54 am Signed by: MD PUTNAM WASSIM OSAMA Transcribed Date and Time: 10/18/2021 9:53 [facility] Jose Alfredo Putnam MD - 10/18/2021 Patient Name: JACY CARROLL Diagnostic Radiology ACCESSION EXAM DATE/TIME PROCEDURE ORDERING PROVIDER [id number] 10/18/2021 09:46 EDT CR Spine Cervical 2 or 3 MD ZAC, WILLIAM Views CPT code 23093 Reason For Exam (CR Spine Cervical 2 or 3 Views) neck strain Report EXAMINATION: CERVICAL SPINE RADIOGRAPH CLINICAL INDICATION: Neck strain TECHNIQUE: Three views COMPARISON: 12/04/2018 FINDINGS: No acute fracture or subluxation. Alignment is anatomic. Disc spaces are preserved. Prevertebral soft tissues are intact. IMPRESSION: No acute osseous abnormality. Report Dictated on --- Final --- Dictated: 10/18/2021 9:53 am Dictating Physician: MD PUTNAM WASSIM OSAMA Signed Date and Time: 10/18/2021 9:54 am Signed by: MD PUTNAM WASSIM OSAMA Transcribed Date and Time: 10/18/2021 9:53 [facility] Work Phone: [facility] Work Phone: XR CHEST (2 VW)on 10-18-2021 Patient Name: JACY CARROLL Diagnostic Radiology ACCESSION EXAM DATE/TIME PROCEDURE ORDERING PROVIDER [id number] 10/18/2021 09:46 EDT CR Chest PA & LAT MD LEWIS NISHIT CPT code 04290 Reason For Exam (CR Chest PA & LAT) chest pain Report EXAMINATION: CHEST RADIOGRAPH CLINICAL INDICATION: Chest pain TECHNIQUE: Two views of the chest COMPARISON: None FINDINGS: Cardiomediastinal silhouette is normal. Lungs are clear. No pleural effusion or pneumothorax. No acute osseous abnormality. IMPRESSION: No acute cardiopulmonary process. Report Dictated on --- Final --- Dictated: 10/18/2021 9:54 am Dictating Physician: MD PUTNAM WASSIM OSAMA Signed Date and Time: 10/18/2021 9:55 am Signed by: MD PUTNAM WASSIM OSAMA Transcribed Date and Time: 10/18/2021 9:54 [facility] Jose Alfredo Putnam MD - 10/18/2021 Patient Name: JACY CARROLL Diagnostic Radiology ACCESSION EXAM DATE/TIME PROCEDURE ORDERING PROVIDER [id number] 10/18/2021 09:46 EDT CR Chest PA & LAT MD LEWIS NISHIT CPT code 17376 Reason For Exam (CR Chest PA & LAT) chest pain Report EXAMINATION: CHEST RADIOGRAPH CLINICAL INDICATION: Chest pain TECHNIQUE: Two views of the chest COMPARISON: None FINDINGS: Cardiomediastinal silhouette is normal. Lungs are clear. No pleural effusion or pneumothorax. No acute osseous abnormality. IMPRESSION: No acute cardiopulmonary process. Report Dictated on --- Final --- Dictated: 10/18/2021 9:54 am Dictating Physician: MD JOEY, JOSE ALFREDO GONZALEZ Signed Date and Time: 10/18/2021 9:55 am Signed by: MD JOEY, JOSE ALFREDO GONZALEZ Transcribed Date and Time: 10/18/2021 9:54 [facility] Work Phone: [facility] Work Phone: APTTon 08-01-2021 aPTT Coag (Bld) [Time] 25.6 s [employer] Blood Gas, ArterialOrdered B y: Sujey Ricardo on 08-01-2021 B.E. -2.9 mmol/L -3.0 - 3.0 mmol/L [employer] Work Phone: Body temperature 98.6 [degF] [employer] Work Phone: COHb 0.2 % 0.0 - 1.5 % [employer] Work Phone: Critical(s) Notified . No Critical Values [employer] Phone: Date Analyzed [phone] [employer] [facility] Work Phone: Date Of Collection [employer] Work Phone: FIO2 100.0 % [employer] Work Phone: HCO3 (Bld) [Moles/Vol] 19.5 mmol/L Low 22.0 - 26.0 mmol/L [employer] Work Phone: HHb 0.4 % 0.0 - 5.0 % [employer] Work Phone: [phone] [employer] Work Phone: MetHb 0.2 % 0.0 - 1.5 % [employer] Work Phone: Mode NRB 15L [employer] Work Phone: O2 Content 18.9 mL/dL [employer] Work Phone: O2Hb 99.2 % High 94.0 - 97.0 % [employer] Work Phone: Giving Officer ID 2020 [employer] Work Phone: Oxygen (Bld) [Partial pressure] 325.4 mm[Hg] High [employer] Work Phone: Oxygen saturation in Blood 99.6 % High 92.0 - 98.5 % [employer] Work Phone: PCO2 27.5 Low [employer] Work Phone: pH, Blood Gas 7.468 High [employer] Work Phone: PO2/FIO2 3.25 mmHg/% [employer] Work Phone: Potassium [Moles/Vol] 3.75 mmol/L 3.50 - 5.00 mmol/L [employer] Work Phone: Source: Blood Arterial [employer] Work Phone: tHb (est) 13.0 g/dL 11.5 - 16.5 g/dL [employer] Work Phone: Time Analyzed 850 [employer] Work Phone: [facility]lected [facility]: [employer] Work Phone: CBCon 08-01-2021 Hematocrit (Bld) [Volume fraction] 39.0 % 34.0 - 48.0 % [employer] Hemoglobin.gastrointe stinal spec 1 Ql (Stl) 12.5 g/dL 11.5 - 15.5 g/dL [employer] MCH (RBC) [Entitic mass] 27.9 pg 26.0 - 35.0 pg [employer] MCHC (RBC) [Mass/Vol] 32.1 % 32.0 - 34.5 % [facility] MCV (RBC) [Entitic vol] 87.1 fL 80.0 - 99.9 fL [facility] Platelet distribution width (Bld) [Ratio] 14.0 fL 11.5 - 15.0 fL [facility] Platelet mean volume (Bld) [Entitic vol] 9.8 fL 7.0 - 12.0 fL [facility] Platelets (Bld) [#/Vol] 231 10*3/uL [facility] RBC (Bld) [#/Vol] 4.48 10*6/uL [facility] WBC (Bld) [#/Vol] 6.2 10*3/uL [facility] CBC With Platelet No Differe ntialon 08-01-2021 Hematocrit (Bld) [Volume fraction] 39.0 % Normal 34.0-48.0 [facility] Hemoglobin (Bld) [Mass/Vol] 12.5 g/dL Normal 11.5-15.5 [facility] MCH (RBC) [Entitic mass] 27.9 pg Normal 26.0-35.0 [facility] MCHC 32.1 % Normal 32.0-34.5 [facility] MCV (RBC) [Entitic vol] 87.1 fL Normal 80.0-99.9 [facility] Platelet Count 231 E9/L Normal 130-450 [facility] Platelet mean volume (Bld) [Entitic vol] 9.8 fL Normal 7.0-12.0 [facility] RBC 4.48 E12/L Normal 3.50-5.50 [facility] RDW 14.0 fL Normal 11.5-15.0 [facility] WBC 6.2 E9/L Normal 4.5-11.[address] [facility] [address] ABDOMEN PELVIS W IV CONTR Maria Fernanda 08-01-2021 CT ABDOMEN PELVIS W IV CONTRAST EXAMINATION: CT OF THE CHEST WITH CONTRAST; CT OF THE ABDOMEN AND PELVIS WITH CONTRAST 08/01/2021 8:56 am TECHNIQUE: CT of the chest was performed with the administration of intravenous contrast. Multiplanar reformatted images are provided for review. Automated exposure control, iterative reconstruction, and/or weight based adjustment of the mA/kV was utilized to reduce the radiation dose to as low as reasonably achievable.; CT of the abdomen and pelvis was performed with the administration of intravenous contrast. Multiplanar reformatted images are provided for review. Automated exposure control, iterative reconstruction, and/or weight based adjustment of the mA/kV was utilized to reduce the radiation dose to as low as reasonably achievable. COMPARISON: None HISTORY: ORDERING SYSTEM PROVIDED HISTORY: trauma TECHNOLOGIST PROVIDED HISTORY: Reason for exam:->trauma Decision Support Exception - unselect if not a suspected or confirmed emergency medical condition->Emergency Medical Condition ([place]) What reading provider will be dictating this exam?->CRC; ORDERING SYSTEM PROVIDED HISTORY: trauma TECHNOLOGIST PROVIDED HISTORY: Reason for exam:->trauma Additional Contrast?->None Decision Support Exception - unselect if not a suspected or confirmed emergency medical condition->Emergency Medical Condition ([place]) What reading provider will be dictating this exam?->CRC FINDINGS: Chest: Mediastinum: Thyroid is homogeneous in attenuation. No bulky mediastinal adenopathy. Central airways are patent. Esophagus is normal course and caliber. Patent nonaneurysmal thoracic aorta. Cardiac size within normal limits without pericardial effusion. Lungs/pleura: Lungs are clear without focal opacification or consolidation. No dominant nodule or mass lesion. No pleural effusion or pleural process. Soft Tissues/Bones: No acute osseous or soft tissue findings. No aggressive osseous lesion. Abdomen/Pelvis: Organs: Liver without focal lesion. Gallbladder unremarkable. Pancreas and spleen unremarkable. Adrenals without nodule. Kidneys without suspicious renal lesion and no hydronephrosis. GI/Bowel: No focal thickening or disproportion dilatation of bowel. No inflammatory findings. Appendix is unremarkable and visualized in the right lower quadrant. Pelvis: No suspicious pelvic lesion or bulky pelvic adenopathy/free fluid. Peritoneum/Retroperito neum: Patent nonaneurysmal abdominal aorta. No bulky retroperitoneal adenopathy. Bones/Soft Tissues: No acute osseous or soft tissue findings. IMPRESSION: No acute traumatic findings of the chest, abdomen or pelvis. Please see separate spinal CT dictations for dedicated imaging of the spine Interpreted by: Darius Bauman DO Signed by: Darius Bauman DO 08/01/21 Final result Normal [facility] Comment on above: Order Comment: Reaso n for exam:->trauma Additional Contrast?->None Decision Support Exception - unselect if not a suspected or confirmed emergency medical condition->Emergency Medical Condition ([place]) What reading provider will be dictating this exam?->CRC CT CERVICAL SPINE WO CONTRAS Ton 08-01-2021 CT CERVICAL SPINE WO CONTRAST EXAMINATION: CT OF THE CERVICAL SPINE WITHOUT CONTRAST 08/01/2021 8:56 am TECHNIQUE: CT of the cervical spine was performed without the administration of intravenous contrast. Multiplanar reformatted images are provided for review. Automated exposure control, iterative reconstruction, and/or weight based adjustment of the mA/kV was utilized to reduce the radiation dose to as low as reasonably achievable. COMPARISON: None. HISTORY: ORDERING SYSTEM PROVIDED HISTORY: trauma TECHNOLOGIST PROVIDED HISTORY: Reason for exam:->trauma Decision Support Exception - unselect if not a suspected or confirmed emergency medical condition->Emergency Medical Condition ([place]) What reading provider will be dictating this exam?->CRC FINDINGS: BONES/ALIGNMENT: There is no acute fracture or traumatic malalignment. The ring of C1 is intact as is the dense. There is no compression fracture of the cervical spine. No jumped or perched facet is noted. The posterior elements are unremarkable. DEGENERATIVE CHANGES: Mild degenerative disc disease is noted at the C5-6 level. SOFT TISSUES: There is no prevertebral soft tissue swelling. IMPRESSION: No acute abnormality of the cervical spine. Interpreted by: Devin Gee MD Signed by: Devin Gee MD 08/01/21 Final result Normal [facility] Comment on above: Order Comment: Reaso n for exam:->traumaDecision Support Exception - unselect if not a suspected or confirmed emergency medical condition->Emergency Medical Condition ([place])What reading provider will be dictating this exam?->CRC No acute abnormality of the cervical spine. [facility] EXAMINATION: CT OF THE CERVICAL SPINE WITHOUT CONTRAST 08/01/2021 8:56 am TECHNIQUE: CT of the cervical spine was performed without the administration of intravenous contrast. Multiplanar reformatted images are provided for review. Automated exposure control, iterative reconstruction, and/or weight based adjustment of the mA/kV was utilized to reduce the radiation dose to as low as reasonably achievable. COMPARISON: None. HISTORY: ORDERING SYSTEM PROVIDED HISTORY: trauma TECHNOLOGIST PROVIDED HISTORY: Reason for exam:->trauma Decision Support Exception - unselect if not a suspected or confirmed emergency medical condition->Emergency Medical Condition ([place]) What reading provider will be dictating this exam?->CRC FINDINGS: BONES/ALIGNMENT: There is no acute fracture or traumatic malalignment. The ring of C1 is intact as is the dense. There is no compression fracture of the cervical spine. No jumped or perched facet is noted. The posterior elements are unremarkable. DEGENERATIVE CHANGES: Mild degenerative disc disease is noted at the C5-6 level. SOFT TISSUES: There is no prevertebral soft tissue swelling. [facility] Devin Gee MD - 08/01/2021 EXAMINATION: CT OF THE CERVICAL SPINE WITHOUT CONTRAST 08/01/2021 8:56 am TECHNIQUE: CT of the cervical spine was performed without the administration of intravenous contrast. Multiplanar reformatted images are provided for review. Automated exposure control, iterative reconstruction, and/or weight based adjustment of the mA/kV was utilized to reduce the radiation dose to as low as reasonably achievable. COMPARISON: None. HISTORY: ORDERING SYSTEM PROVIDED HISTORY: trauma TECHNOLOGIST PROVIDED HISTORY: Reason for exam:->trauma Decision Support Exception - unselect if not a suspected or confirmed emergency medical condition->Emergency Medical Condition ([place]) What reading provider will be dictating this exam?->CRC FINDINGS: BONES/ALIGNMENT: There is no acute fracture or traumatic malalignment. The ring of C1 is intact as is the dense. There is no compression fracture of the cervical spine. No jumped or perched facet is noted. The posterior elements are unremarkable. DEGENERATIVE CHANGES: Mild degenerative disc disease is noted at the C5-6 level. SOFT TISSUES: There is no prevertebral soft tissue swelling. IMPRESSION: No acute abnormality of the cervical spine. [employer] Phone: [employer] Phone: CT CHEST W CONTRASTon 2021 CT CHEST W CONTRAST EXAMINATION: CT OF THE CHEST WITH CONTRAST; CT OF THE ABDOMEN AND PELVIS WITH CONTRAST 08/01/2021 8:56 am TECHNIQUE: CT of the chest was performed with the administration of intravenous contrast. Multiplanar reformatted images are provided for review. Automated exposure control, iterative reconstruction, and/or weight based adjustment of the mA/kV was utilized to reduce the radiation dose to as low as reasonably achievable.; CT of the abdomen and pelvis was performed with the administration of intravenous contrast. Multiplanar reformatted images are provided for review. Automated exposure control, iterative reconstruction, and/or weight based adjustment of the mA/kV was utilized to reduce the radiation dose to as low as reasonably achievable. COMPARISON: None HISTORY: ORDERING SYSTEM PROVIDED HISTORY: trauma TECHNOLOGIST PROVIDED HISTORY: Reason for exam:->trauma Decision Support Exception - unselect if not a suspected or confirmed emergency medical condition->Emergency Medical Condition ([place]) What reading provider will be dictating this exam?->CRC; ORDERING SYSTEM PROVIDED HISTORY: trauma TECHNOLOGIST PROVIDED HISTORY: Reason for exam:->trauma Additional Contrast?->None Decision Support Exception - unselect if not a suspected or confirmed emergency medical condition->Emergency Medical Condition ([place]) What reading provider will be dictating this exam?->CRC FINDINGS: Chest: Mediastinum: Thyroid is homogeneous in attenuation. No bulky mediastinal adenopathy. Central airways are patent. Esophagus is normal course and caliber. Patent nonaneurysmal thoracic aorta. Cardiac size within normal limits without pericardial effusion. Lungs/pleura: Lungs are clear without focal opacification or consolidation. No dominant nodule or mass lesion. No pleural effusion or pleural process. Soft Tissues/Bones: No acute osseous or soft tissue findings. No aggressive osseous lesion. Abdomen/Pelvis: Organs: Liver without focal lesion. Gallbladder unremarkable. Pancreas and spleen unremarkable. Adrenals without nodule. Kidneys without suspicious renal lesion and no hydronephrosis. GI/Bowel: No focal thickening or disproportion dilatation of bowel. No inflammatory findings. Appendix is unremarkable and visualized in the right lower quadrant. Pelvis: No suspicious pelvic lesion or bulky pelvic adenopathy/free fluid. Peritoneum/Retroperito neum: Patent nonaneurysmal abdominal aorta. No bulky retroperitoneal adenopathy. Bones/Soft Tissues: No acute osseous or soft tissue findings. IMPRESSION: No acute traumatic findings of the chest, abdomen or pelvis. Please see separate spinal CT dictations for dedicated imaging of the spine Interpreted by: Darius Bauman DO Signed by: Darius Bauman DO 08/01/21 Final result Normal [facility] Comment on above: Order Comment: Reaso n for exam:->traumaDecision Support Exception - unselect if not a suspected or confirmed emergency medical condition->Emergency Medical Condition ([place])What reading provider will be dictating this exam?->CRC CT HEAD WO CONTRASTon 2021 CT HEAD WO CONTRAST EXAMINATION: CT OF THE HEAD WITHOUT CONTRAST 08/01/2021 8:56 am TECHNIQUE: CT of the head was performed without the administration of intravenous contrast. Automated exposure control, iterative reconstruction, and/or weight based adjustment of the mA/kV was utilized to reduce the radiation dose to as low as reasonably achievable. COMPARISON: None. HISTORY: ORDERING SYSTEM PROVIDED HISTORY: trauma TECHNOLOGIST PROVIDED HISTORY: Reason for exam:->trauma Has a code stroke or stroke alert been called?->No Decision Support Exception - unselect if not a suspected or confirmed emergency medical condition->Emergency Medical Condition ([place]) What reading provider will be dictating this exam?->CRC FINDINGS: BRAIN/VENTRICLES: There is no acute intracranial hemorrhage, mass effect or midline shift. No abnormal extra-axial fluid collection. The baxter-white differentiation is maintained without evidence of an acute infarct. There is no evidence of hydrocephalus. ORBITS: The visualized portion of the orbits demonstrate no acute abnormality. SINUSES: The visualized paranasal sinuses and mastoid air cells demonstrate no acute abnormality. SOFT TISSUES/SKULL: No acute abnormality of the visualized skull or soft tissues. IMPRESSION: No acute intracranial abnormality. Specifically, there is no acute intracranial hemorrhage Interpreted by: Devin Gee MD Signed by: Devin Gee MD 08/01/21 Final result Normal [facility] Comment on above: Order Comment: Reaso n for exam:->traumaHas a code stroke or stroke alert been called?->NoDecision Support Exception - unselect if not a suspected or confirmed emergency medical condition->Emergency Medical Condition ([place])What reading provider will be dictating this exam?->CRC No acute intracrania l abnormality. Specifically, there is no acute intracranial hemorrhage [facility]: CT OF THE HEAD WITHOUT CONTRAST 08/01/2021 8:56 am TECHNIQUE: CT of the head was performed without the administration of intravenous contrast. Automated exposure control, iterative reconstruction, and/or weight based adjustment of the mA/kV was utilized to reduce the radiation dose to as low as reasonably achievable. COMPARISON: None. HISTORY: ORDERING SYSTEM PROVIDED HISTORY: trauma TECHNOLOGIST PROVIDED HISTORY: Reason for exam:->trauma Has a code stroke or stroke alert been called?->No Decision Support Exception - unselect if not a suspected or confirmed emergency medical condition->Emergency Medical Condition ([place]) What reading provider will be dictating this exam?->CRC FINDINGS: BRAIN/VENTRICLES: There is no acute intracranial hemorrhage, mass effect or midline shift. No abnormal extra-axial fluid collection. The batxer-white differentiation is maintained without evidence of an acute infarct. There is no evidence of hydrocephalus. ORBITS: The visualized portion of the orbits demonstrate no acute abnormality. SINUSES: The visualized paranasal sinuses and mastoid air cells demonstrate no acute abnormality. SOFT TISSUES/SKULL: No acute abnormality of the visualized skull or soft tissues. [facility] Devin Gee MD - 08/01/2021 EXAMINATION: CT OF THE HEAD WITHOUT CONTRAST 08/01/2021 8:56 am TECHNIQUE: CT of the head was performed without the administration of intravenous contrast. Automated exposure control, iterative reconstruction, and/or weight based adjustment of the mA/kV was utilized to reduce the radiation dose to as low as reasonably achievable. COMPARISON: None. HISTORY: ORDERING SYSTEM PROVIDED HISTORY: trauma TECHNOLOGIST PROVIDED HISTORY: Reason for exam:->trauma Has a code stroke or stroke alert been called?->No Decision Support Exception - unselect if not a suspected or confirmed emergency medical condition->Emergency Medical Condition ([place]) What reading provider will be dictating this exam?->CRC FINDINGS: BRAIN/VENTRICLES: There is no acute intracranial hemorrhage, mass effect or midline shift. No abnormal extra-axial fluid collection. The baxter-white differentiation is maintained without evidence of an acute infarct. There is no evidence of hydrocephalus. ORBITS: The visualized portion of the orbits demonstrate no acute abnormality. SINUSES: The visualized paranasal sinuses and mastoid air cells demonstrate no acute abnormality. SOFT TISSUES/SKULL: No acute abnormality of the visualized skull or soft tissues. IMPRESSION: No acute intracranial abnormality. Specifically, there is no acute intracranial hemorrhage [employer] Phone: CT HEAD WO CONTRASTOrdered B y: Devin Gee on 08-01-2021 [employer] Phone: CT THORACIC SPINE WO CONTRAS Ton 08-01-2021 CT THORACIC SPINE WO CONTRAST EXAMINATION: CT OF THE THORACIC SPINE WITHOUT CONTRAST 08/01/2021 8:56 am: TECHNIQUE: CT of the thoracic spine was performed without the administration of intravenous contrast. Multiplanar reformatted images are provided for review. Automated exposure control, iterative reconstruction, and/or weight based adjustment of the mA/kV was utilized to reduce the radiation dose to as low as reasonably achievable. COMPARISON: None. HISTORY: ORDERING SYSTEM PROVIDED HISTORY: trauma TECHNOLOGIST PROVIDED HISTORY: Reason for exam:->trauma What reading provider will be dictating this exam?->CRC FINDINGS: BONES/ALIGNMENT: There is normal alignment of the spine. The vertebral body heights are maintained. No osseous destructive lesion is seen. The posterior elements are intact. DEGENERATIVE CHANGES: No gross spinal canal stenosis or bony neural foraminal narrowing of the thoracic spine. SOFT TISSUES: No paraspinal mass is seen. IMPRESSION: Unremarkable CT of the thoracic spine. Interpreted by: Devin Gee MD Signed by: Devin Gee MD 08/01/21 Final result Normal [facility] Comment on above: Order Comment: Reaso n for exam:->traumaWhat reading provider will be dictating this exam?->CRC Unremarkable CT of t he thoracic spine. [facility] EXAMINATION: CT OF THE THORACIC SPINE WITHOUT CONTRAST 08/01/2021 8:56 am: TECHNIQUE: CT of the thoracic spine was performed without the administration of intravenous contrast. Multiplanar reformatted images are provided for review. Automated exposure control, iterative reconstruction, and/or weight based adjustment of the mA/kV was utilized to reduce the radiation dose to as low as reasonably achievable. COMPARISON: None. HISTORY: ORDERING SYSTEM PROVIDED HISTORY: trauma TECHNOLOGIST PROVIDED HISTORY: Reason for exam:->trauma What reading provider will be dictating this exam?->CRC FINDINGS: BONES/ALIGNMENT: There is normal alignment of the spine. The vertebral body heights are maintained. No osseous destructive lesion is seen. The posterior elements are intact. DEGENERATIVE CHANGES: No gross spinal canal stenosis or bony neural foraminal narrowing of the thoracic spine. SOFT TISSUES: No paraspinal mass is seen. [facility] Devin Gee MD - 08/01/2021 EXAMINATION: CT OF THE THORACIC SPINE WITHOUT CONTRAST 08/01/2021 8:56 am: TECHNIQUE: CT of the thoracic spine was performed without the administration of intravenous contrast. Multiplanar reformatted images are provided for review. Automated exposure control, iterative reconstruction, and/or weight based adjustment of the mA/kV was utilized to reduce the radiation dose to as low as reasonably achievable. COMPARISON: None. HISTORY: ORDERING SYSTEM PROVIDED HISTORY: trauma TECHNOLOGIST PROVIDED HISTORY: Reason for exam:->trauma What reading provider will be dictating this exam?->CRC FINDINGS: BONES/ALIGNMENT: There is normal alignment of the spine. The vertebral body heights are maintained. No osseous destructive lesion is seen. The posterior elements are intact. DEGENERATIVE CHANGES: No gross spinal canal stenosis or bony neural foraminal narrowing of the thoracic spine. SOFT TISSUES: No paraspinal mass is seen. IMPRESSION: Unremarkable CT of the thoracic spine. [facility] [employer] Work Phone: [facility] Phone: Comprehensive Metabolic Pane [facility] 08-01-2021 Albumin [Mass/Vol] 4.3 g/dL Normal 3.5-5.2 [facility] ALP [Catalytic activity/Vol] 67 U/L Normal 35-104 [facility] ALT [Catalytic activity/Vol] 11 U/L Normal 0-32 [facility] Anion gap [Moles/Vol] 9 mmol/L Normal 7-16 [facility] AST [Catalytic activity/Vol] 15 U/L Normal 0-31 [facility] Bilirubin [Mass/Vol] 0.6 mg/dL Normal 0.0-1.2 [facility] Calcium [Mass/Vol] 8.9 mg/dL Normal 8.6-10.2 [facility] Chloride [Moles/Vol] 105 mmol/L Normal 98-107 [facility] CO2 [Moles/Vol] 24 mmol/L Normal 22-29 [facility] Creatinine [Mass/Vol] 1.0 mg/dL Normal 0.5-1.0 [facility] GFR Calculated >60 Normal >=60 [facility] Comment on above: Result Comment: Can Vacuum T[employer] stuart Kidney Disease: less than 60 ml/min/1.73 sq.m. Kidney Failure: less than 15 ml/min/1.73 sq.m. Results valid for patients 18 years and older. GFR/1.73 sq M.predicted among blacks MDRD (S/P/Bld) [Vol rate/Area] mL/min/{1.73_m2} Normal [facility] Glucose [Mass/Vol] 95 mg/dL Normal 74-99 [facility] Potassium [Moles/Vol] 3.8 mmol/L Normal 3.5-5.0 [facility] Protein [Mass/Vol] 7.3 g/dL Normal 6.4-8.3 [facility] Sodium [Moles/Vol] 138 mmol/L Normal 132-146 [facility] Urea nitrogen [Mass/Vol] 13 mg/dL Normal 6-20 [facility] Albumin [Mass/Vol] 4.3 g/dL 3.5 - 5.2 g/dL [facility] ALP (Bld) [Catalytic activity/Vol] 67 U/L 35 - 104 U/L [facility] ALT [Catalytic activity/Vol] 11 U/L 0 - 32 U/L [facility] Anion gap [Moles/Vol] 9 mmol/L 7 - 16 mmol/L [facility] AST [Catalytic activity/Vol] 15 U/L 0 - 31 U/L [facility] Bilirubin [Mass/Vol] 0.6 mg/dL 0.0 - 1 .2 mg/dL [facility] Calcium [Mass/Vol] 8.9 mg/dL 8.6 - 10. 2 mg/dL [facility] Chloride [Moles/Vol] 105 mmol/L 98 - 10 7 mmol/L [facility] CO2 [Moles/Vol] 24 mmol/L 22 - 29 mmol/L [facility] Creatinine [Mass/Vol] 1 mg/dL 0.5 - 1.0 mg/dL [facility] PSA/Total PSA [Mass fraction] 7.3 g/dL 6.4 - 8.3 g/dL [employer] GFR >60 [facility] GFR Non- >60 >=60 mL/min/1.73 [facility] Comment on above: Chronic Kidney Disea se: less than 60 ml/min/1.73 sq.m. Kidney Failure: less than 15 ml/min/1.73 sq.m. Results valid for patients 18 years and older. Glucose [Mass/Vol] 95 mg/dL 74 - 99 mg/dL [facility] Potassium [Moles/Vol] 3.8 mmol/L 3.5 - 5.0 mmol/L [facility] Sodium [Moles/Vol] 138 mmol/L 132 - 146 mmol/L [facility] Urea nitrogen (BldV) [Mass/Vol] 13 mg/dL 6 - 20 mg/dL [facility] HCG Qualitative, Serumon hCG Qual Negative NEGATIVE [facility] Comment on above: Test results should always be evaluated with all available clinical data. [facility] Lactic Acidon 08-01-2021 Lactate [Moles/Vol] 1.7 mmol/L Normal 0.5-2.2 [facility] Lactate [Moles/Vol] 1.7 mmol/L 0.5 - 2. 2 mmol/L [facility] Microscopic Urinalysison Bacteria, UA RARE Abnormal None Seen /HPF [facility] Epithelial Cells, UA RARE /HPF [facility] WBC, UA 1-3 [facility] No Panel Informationon 08-01 [facility] No acute traumatic findings of the chest, abdomen or pelvis. Please see separate spinal CT dictations for dedicated imaging of the spine [facility]: CT OF THE CHEST WITH CONTRAST; CT OF THE ABDOMEN AND PELVIS WITH CONTRAST 08/01/2021 8:56 am TECHNIQUE: CT of the chest was performed with the administration of intravenous contrast. Multipl[employer]ar reformatted images are provided for review. Automated exposure control, iterative reconstruction, and/or weight based adjustment of the mA/kV was utilized to reduce the radiation dose to as low as reasonably achievable.; CT of the abdomen and pelvis was performed with the administration of intravenous contrast. Multiplanar reformatted images are provided for review. Automated exposure control, iterative reconstruction, and/or weight based adjustment of the mA/kV was utilized to reduce the radiation dose to as low as reasonably achievable. COMPARISON: None HISTORY: ORDERING SYSTEM PROVIDED HISTORY: trauma TECHNOLOGIST PROVIDED HISTORY: Reason for exam:->trauma Decision Support Exception - unselect if not a suspected or confirmed emergency medical condition->Emergency Medical Condition (MA) What reading provider will be dictating this exam?->CRC; ORDERING SYSTEM PROVIDED HISTORY: trauma TECHNOLOGIST PROVIDED HISTORY: Reason for exam:->trauma Additional Contrast?->None Decision Support Exception - unselect if not a suspected or confirmed emergency medical condition->Emergency Medical Condition (MA) What reading provider will be dictating this exam?->CRC FINDINGS: Chest: Mediastinum: Thyroid is homogeneous in attenuation. No bulky mediastinal adenopathy. Central airways are patent. Esophagus is normal course and caliber. Patent nonaneurysmal thoracic aorta. Cardiac size within normal limits without pericardial effusion. Lungs/pleura: Lungs are clear without focal opacification or consolidation. No dominant nodule or mass lesion. No pleural effusion or pleural process. Soft Tissues/Bones: No acute osseous or soft tissue findings. No aggressive osseous lesion. Abdomen/Pelvis: Organs: Liver without focal lesion. Gallbladder unremarkable. Pancreas and spleen unremarkable. Adrenals without nodule. Kidneys without suspicious renal lesion and no hydronephrosis. GI/Bowel: No focal thickening or disproportion dilatation of bowel. No inflammatory findings. Appendix is unremarkable and visualized in the right lower quadrant. Pelvis: No suspicious pelvic lesion or bulky pelvic adenopathy/free fluid. Peritoneum/Retroperito neum: Patent nonaneurysmal abdominal aorta. No bulky retroperitoneal adenopathy. Bones/Soft Tissues: No acute osseous or soft tissue findings. [facility] Bauman, Darius, DO - 08/01/2021 EXAMINATION: CT OF THE CHEST WITH CONTRAST; CT OF THE ABDOMEN AND PELVIS WITH CONTRAST 08/01/2021 8:56 am TECHNIQUE: CT of the chest was performed with the administration of intravenous contrast. Multiplanar reformatted images are provided for review. Automated exposure control, iterative reconstruction, and/or weight based adjustment of the mA/kV was utilized to reduce the radiation dose to as low as reasonably achievable.; CT of the abdomen and pelvis was performed with the administration of intravenous contrast. Multiplanar reformatted images are provided for review. Automated exposure control, iterative reconstruction, and/or weight based adjustment of the mA/kV was utilized to reduce the radiation dose to as low as reasonably achievable. COMPARISON: None HISTORY: ORDERING SYSTEM PROVIDED HISTORY: trauma TECHNOLOGIST PROVIDED HISTORY: Reason for exam:->trauma Decision Support Exception - unselect if not a suspected or confirmed emergency medical condition->Emergency Medical Condition (MA) What reading provider will be dictating this exam?->CRC; ORDERING SYSTEM PROVIDED HISTORY: trauma TECHNOLOGIST PROVIDED HISTORY: Reason for exam:->trauma Additional Contrast?->None Decision Support Exception - unselect if not a suspected or confirmed emergency medical condition->Emergency Medical Condition (MA) What reading provider will be dictating this exam?->CRC FINDINGS: Chest: Mediastinum: Thyroid is homogeneous in attenuation. No bulky mediastinal adenopathy. Central airways are patent. Esophagus is normal course and caliber. Patent nonaneurysmal thoracic aorta. Cardiac size within normal limits without pericardial effusion. Lungs/pleura: Lungs are clear without focal opacification or consolidation. No dominant nodule or mass lesion. No pleural effusion or pleural process. Soft Tissues/Bones: No acute osseous or soft tissue findings. No aggressive osseous lesion. Abdomen/Pelvis: Organs: Liver without focal lesion. Gallbladder unremarkable. Pancreas and spleen unremarkable. Adrenals without nodule. Kidneys without suspicious renal lesion and no hydronephrosis. GI/Bowel: No focal thickening or disproportion dilatation of bowel. No inflammatory findings. Appendix is unremarkable and visualized in the right lower quadrant. Pelvis: No suspicious pelvic lesion or bulky pelvic adenopathy/free fluid. Peritoneum/Retroperito neum: Patent nonaneurysmal abdominal aorta. No bulky retroperitoneal adenopathy. Bones/Soft Tissues: No acute osseous or soft tissue findings. IMPRESSION: No acute traumatic findings of the chest, abdomen or pelvis. Please see separate spinal CT dictations for dedicated imaging of the spine [employer] Phone: Radiology Study observation (narrative) [employer] Phone: Interpretation and review of laboratory results Abnormal [employer] Radiology Study observation (narrative) [employer] Phone: No Panel InformationOrdered By: Darius Bauman on 08-01-2021 [employer] Phone: Partial Thromboplastin Timeo n 08-01-2021 aPTT Coag (Bld) [Time] 25.6 s Normal 24.5-35.1 [facility] Prothrombin Timeon INR Coag (PPP) [Relative time] 1.0 {INR} Normal [facility] PT Coag (PPP) [Time] 11.2 s Normal 9.3-12.4 [facility] Protime-INRon 08-01-2021 INR Coag (Bld) [Relative time] 1.0 {INR} [facility] PT Coag (PPP) [Time] 11.2 s [facility] Serum Drug Screenon 08-02-19 Acetaminophen [Mass/Vol] ug/mL Low 10.0-30.0 [facility] Ethanol [Mass/Vol] mg/dL Normal [facility] Comment on above: Result Comment: Not Detected Salicylate <0.3 Normal 0.0-30.0 [facility] TCA Screen Negative Normal Cutoff:300 [facility] Acetaminophen Level <5.0 Low [facility] Ethanol Lvl <10 mg/dL [facility] Comment on above: Not Detected Salicylate, Serum <0.3 0.0 - 30.0 mg/dL [facility] TCA Scrn Negative Cutoff:300 ng/mL [facility] Serum HCG Qualitativeon 07-17 Serum HCG Qualitative Negative Normal NEGATIVE [facility] Comment on above: Result Comment: Test results should always be evaluated with all available clinical data. TEGon 08-01-2021 Angle-Clot Str 65.8 degree Normal 59.0-74.0 [facility] EPL-TEG 0.0 % Normal 0.0-15.0 [facility] G-TEG 8.1 K d/sc Normal 4.5-11.0 [facility] K-Clotting Time 1.8 min Normal 1.0-3.0 [facility] LY30 Fibrinolysis 0.0 % Normal 0.0-8.0 [facility] MA-Max Amplitude 62.0 mm Normal 50.0-70.0 [facility] R-Reaction Time 5.3 min Normal 5.0-10.0 [facility] TEG lab teston 08-01-2021 Angle (Clot Strength) 65.8 [facility] EPL-TEG 0.0 % 0.0 - 15.0 % [facility] G-TEG 8.1 [facility] K (Clotting Time) 1.8 min 1.0 - 3.0 min [facility] LY30 (Fibrinolysis) 0.0 % 0.0 - 8.0 % [place] MA (Max Amplitude) 62.0 mm 50.0 - 70 .0 mm [employer] R (Reaction Time) 5.3 min 5.0 - 10.0 min [employer] TYPE AND SCREENon 08-01-2021 ABO/Rh Positive [employer] [facility] Type and Screen Capture 3 sc rn cellon 08-01-2021 Antibody 3 Cell Scrn Capture Negative Normal [facility] ABO and Rh group Nom (Bld) Blood group O Rh(D) positive Normal [facility] UR Drugs of Abuse Panelon UR Amphetamines Screen Not detected Normal Negative <1000 ng/mL [facility] UR Barbiturates Screen Not detected Normal Negative < 200 ng/mL [facility] UR Benzo Screen Not detected Normal Negative < 200 ng/mL [facility] UR Cannabinoids Screen Not detected Normal Negative < 50ng/mL [facility] UR Cocaine Screen Not detected Normal Negative < 300 ng/mL [facility] UR Fentanyl Screen Not detected Normal Negative <1 ng/mL [facility] UR Methadone Screen Not detected Normal Negative <300 ng/mL [facility] UR Opiates Screen Not detected Normal Negative < 300ng/mL [facility] Comment on above: Result Comment: Note : The Opiate Screen is not intended to detect Oxycodone. UR Oxycodone Screen Not detected Normal Negative <100 ng/mL [facility] UR PCP Screen Not detected Normal Negative < 25 ng/mL [facility] Drug Screen Comment see below Normal [facility] Comment on above: Result Comment: Thes e drug screen results are for medical purposes only and should not be considered definitive or confirmed. The drug methodology concentration value must be greater than or equal to the cutoff to be reported as positive. Confirmatory testing orders and/or interpretive screening questions can be directed to toxicology at [phone]. The absence of expected drug(s) and/or metabolite(s) may be due to inappropriate timing of specimen collection relative to drug administration, poor drug absorption, diluted/adulterated urine, or limitations of screening testing methodology. URINE DRUG SCREENon 08-02-19 Amphetamine Screen, Urine Not detected Negative <1000 ng/mL [employer] Barbiturate Screen, Ur Not detected Negative < 200 ng/mL [employer] Benzodiazepine Screen, Urine Not detected Negative < 200 ng/mL [employer] Cannabinoid Scrn, Ur Not detected Negativ e < 50ng/mL [employer] Cocaine Metabolite Screen, Urine Not detected Negative < 300 ng/mL [employer] Drug Screen Comment: see below [facility] [employer] [facility] Comment on above: These drug screen re sults are for medical purposes only and should not be considered definitive or confirmed. The drug methodology concentration value must be greater than or equal to the cutoff to be reported as positive. Confirmatory testing orders and/or interpretive screening questions can be directed to toxicology at [phone]. The absence of expected drug(s) and/or metabolite(s) may be due to inappropriate timing of specimen collection relative to drug administration, poor drug absorption, diluted/adulterated urine, or limitations of screening testing methodology. FENTANYL SCREEN, URINE Not detected Negative <1 ng/mL [employer] Methadone Screen, Urine Not detected Negative <300 ng/mL [employer] Opiate Scrn, Ur Not detected Negative < 300ng/mL [employer] Comment on above: Note: The Opiate Scr een is not intended to detect Oxycodone. Oxycodone Urine Not detected Negative <10 0 ng/mL [employer] PCP Screen, Urine Not detected Negative < 25 ng/mL [employer] Urinalysison 08-01-2021 Bilirubin Urine Negative Negative [facility] Blood, Urine TRACE-INTACT Negative [facility] Clarity, UA Clear Clear [facility] Color, UA Yellow Straw/Yellow [facility] Glucose, Ur Negative Negative mg/dL [facility] Ketones Ql (U) Negative Negative mg/dL [facility] [employer] Leukocyte esterase Test strip Ql (U) SMALL Abnormal Negative [facility] Nitrite, Urine Negative Negative [facility] pH, UA 6.5 [facility] Protein, UA Negative Negative mg/dL [facility] Specific Gary, UA <=1.005 [facility] Urobilinogen, Urine 0.2 <2.0 E.U./dL [facility] Urinalysis, reflex to micros copicon 08-01-2021 Bilirubin Ql (U) Negative Normal Negative [facility] Clarity (U) Clear Normal Clear [facility] Color (U) Yellow Normal Straw/Yellow [facility] Glucose Ql (U) Negative Normal Negative [facility] Hemoglobin Ql (U) TRACE-INTACT Normal Negative [facility] Ketones Ql (U) Negative Normal Negative [facility] Leukocyte esterase Test strip Ql (U) SMALL Abnormal Negative [facility] Nitrite Ql (U) Negative Normal Negative [facility] pH (U) 6.5 [pH] Normal 5.0-9.0 [facility] Protein Ql (U) Negative Normal Negative [facility] Specific gravity (U) [Rel density] <=1.005 Normal 1.005-1.030 [facility] Urobilinogen Qn (U) 0.2 {Joaquim'U}/dL Normal < 2.0 [facility] Urine Microscopicon 08-02-19 Epithelial cells LM Ql (Urine sed) RARE Normal [facility] RBC (U) [#/Vol] 0 /uL Normal 0-2 [facility] Urine Bacteria RARE Abnormal None Seen [facility] Urine WBC 1-3 Normal 0-5 [facility] XR CHEST PORTABLEon 08-02-19 XR CHEST PORTABLE EXAMINATION: ONE XRAY VIEW OF THE CHEST 08/01/2021 8:49 am COMPARISON: None. HISTORY: ORDERING SYSTEM PROVIDED HISTORY: trauma TECHNOLOGIST PROVIDED HISTORY: Reason for exam:->trauma What reading provider will be dictating this exam?->CRC FINDINGS: Single AP portable chest demonstrate satisfactory expansion of the lungs with no alveolar infiltrate or effusion. There is no evidence of a pneumothorax. The cardiac silhouette appears unremarkable. IMPRESSION: No acute cardiopulmonary process. Interpreted by: Tee Tolbert III, DO Signed by: Tee Tolbert III, DO 08/01/21 Final result Normal [facility] Comment on above: Order Comment: Reaso n for exam:->traumaWhat reading provider will be dictating this exam?->CRC No acute cardiopulmonary process. [facility] EXAMINATION: ONE XRAY VIEW OF THE CHEST 08/01/2021 8:49 am COMPARISON: None. HISTORY: ORDERING SYSTEM PROVIDED HISTORY: trauma TECHNOLOGIST PROVIDED HISTORY: Reason for exam:->trauma What reading provider will be dictating this exam?->CRC FINDINGS: Single AP portable chest demonstrate satisfactory expansion of the lungs with no alveolar infiltrate or effusion. There is no evidence of a pneumothorax. The cardiac silhouette appears unremarkable. [facility] Tee Tolbert III , DO - 08/01/2021 EXAMINATION: ONE XRAY VIEW OF THE CHEST 08/01/2021 8:49 am COMPARISON: None. HISTORY: ORDERING SYSTEM PROVIDED HISTORY: trauma TECHNOLOGIST PROVIDED HISTORY: Reason for exam:->trauma What reading provider will be dictating this exam?->CRC FINDINGS: Single AP portable chest demonstrate satisfactory expansion of the lungs with no alveolar infiltrate or effusion. There is no evidence of a pneumothorax. The cardiac silhouette appears unremarkable. IMPRESSION: No acute cardiopulmonary process. [employer] Phone: XR CHEST PORTABLEOrdered By: Tee Tolbert on 08-01-2021 [employer] Phone: XR PELVIS (1-2 VIEWS)on 07-17 XR PELVIS (1-2 VIEWS) EXAMINATION: ONE XRAY VIEW OF THE PELVIS 08/01/2021 8:49 am COMPARISON: None. HISTORY: ORDERING SYSTEM PROVIDED HISTORY: trauma TECHNOLOGIST PROVIDED HISTORY: Reason for exam:->trauma What reading provider will be dictating this exam?->CRC FINDINGS: There is no evidence of fracture or dislocation. No significant osteodegenerative or other osseous abnormalities are seen. No significant surrounding soft tissue abnormality is identified. IMPRESSION: No fracture or dislocation. Interpreted by: Hari Lancaster MD Signed by: Hari Lancaster MD 08/01/21 Final result Normal [facility] Comment on above: Order Comment: Reaso n for exam:->traumaWhat reading provider will be dictating this exam?->CRC No fracture or dislocation. [facility] EXAMINATION: ONE XRAY VIEW OF THE PELVIS 08/01/2021 8:49 am COMPARISON: None. HISTORY: ORDERING SYSTEM PROVIDED HISTORY: trauma TECHNOLOGIST PROVIDED HISTORY: Reason for exam:->trauma What reading provider will be dictating this exam?->CRC FINDINGS: There is no evidence of fracture or dislocation. No significant osteodegenerative or other osseous abnormalities are seen. No significant surrounding soft tissue abnormality is identified. [facility] Hari Lancaster MD - 08/01/2021 EXAMINATION: ONE XRAY VIEW OF THE PELVIS 08/01/2021 8:49 am COMPARISON: None. HISTORY: ORDERING SYSTEM PROVIDED HISTORY: trauma TECHNOLOGIST PROVIDED HISTORY: Reason for exam:->trauma What reading provider will be dictating this exam?->CRC FINDINGS: There is no evidence of fracture or dislocation. No significant osteodegenerative or other osseous abnormalities are seen. No significant surrounding soft tissue abnormality is identified. IMPRESSION: No fracture or dislocation. [employer] Work Phone: XR PELVIS (1-2 VIEWS)Ordered By: Hari Lancaster on 08-01-2021 [employer] Work Phone: OPERATIVE REPORTOrdered By: Sangeeta on 10-08-2020 [employer] Work Phone: , urine POCTOrdered By: John Sousa on 10-08-2020 Beta HCG ( test) Ql (U) Negative Negative [facility] Work Phone: Beta HCG ( test) Ql (U) [id number] [facility] Work Phone: Interpretation and review of laboratory results Normal [employer] Work Phone: Negative QC Pass/Fail Pass [facility] Work Phone: Positive QC Pass/Fail Pass [facility] Work Phone: [facility] Work Phone: COVID-19Ordered By: John rivera on 10-07-2020 SARS-CoV-2 (COVID-19) RNA SALO+probe Ql (Unsp spec) Not detected Not Detected [facility] Work Phone: Comment on above: Not Detected. Expected Result: Not Detected _ Real-time, RT-PCR performed on the [employer] System by the [facility] Microbiology Service. Negative results do not preclude SARS-CoV-2 infection and should not be used as the sole basis for treatment or other patient management decisions. This assay was developed by [employer] and distributed under an Emergency Use Authorization (EUA) granted by the FDA for the qualitative detection of SARS-CoV-2 nucleic acid. Test Performed by [employer], [address] [place] [id number] [employer] Work Phone: Coronavirus 2019on 0 COVID 19 Result CORPORATE PARALEGAL Negative Normal [facility]NEG [facility] Comment on above: Result Comment: Nega tive for COVID19 (SARS CoV2) by PCR. This test was developed and its performance characteristics determined by [facility]'s [facility] [place]. This test has been authorized by FDA under an Emergency Use Authorization (EUA). This test has been validated in accordance with the FDA's Guidance Document Policy for Diagnostics Testing in Laboratories Certified to Perform High Complexity Testing under CLIA prior to Emergency use Authorization for Coronavirus Disease 2019 during the Public Health Emergency issued on May 17, 2019. Performing Laboratory: [facility] [address] [place] [address] Performed By: #### C [id number] #### [address] [address] XR CHEST 1V FRONTALon 2019 XR CHEST 1V FRONTAL Final Report DATE OF EXAM: Sep 29 2019 11:44AM ANX [id number] - XR CHEST 1V FRONTAL / PROCEDURE REASON: Acute respiratory illness Physician Interpretation EXAMINATION: CHEST RADIOGRAPH (SINGLE VIEW AP OR PA) CLINICAL HISTORY: Acute respiratory illness MQ: [id number]_5 Comparison: 06/04/2019 RESULT: Lines, tubes, and devices: None. Lungs and pleura: No consolidation. No lung mass. No pleural effusion. Cardiomediastinal silhouette: Normal cardiomediastinal silhouette. Other: None IMPRESSION: No acute radiographic abnormality. Athletic Coordinator: PSCB Transcribe Date/Time: Sep 29 2019 11:48A Dictated by : ROBERT SPAIN MD This examination was interpreted and the report reviewed and electronically signed by: ROBERT SPAIN MD on Sep 29 2019 11:48AM EST Normal [facility] , urineon 0 Beta HCG ( test) Ql (U) Negative Negative NA [employer] Work Phone: Comment on above: is the mos t common reason for HCG in urine, although choriocarcinoma, hydatidiform mole, and certain nontropho- blastic malignancies also result in detectable urinary HCG levels. Sensitivity = 20mIU/mL. Test Performed by [facility] [facility], [address] [place] [id number] [facility] Work Phone: XR CERVICAL SPINE (2-3 VIEWS )on 12-04-2018 Patient Name: JACY CARROLL ---Diagnostic Radiology--- Exam Date/Time 12/04/2018 10:13:44 EDT Exam CR Spine Cervical 2 or 3 Views Ordering Physician MD MORRIS GREGORY M Accession Number [id number] CPT4 Codes 46779 () Reason For Exam Neck pain Report Cervical spine: 12/04/2018. Clinical information: Neck pain. Findings: AP, lateral, and open-mouth views of the cervical spine reveal all 7 cervical vertebrae. The heights of the cervical vertebral bodies and intervertebral disc spaces are maintained. The alignment is anatomic. No retropharyngeal soft tissue swelling is seen. Impression: No acute process. Report Dictated on --- Final --- Dictated: 12/04/2018 10:20 am Dictating Physician: MD JUNG RISA Signed Date and Time: 12/04/2018 10:21 am Signed by: MD JUNG RISA Transcribed Date and Time: 12/04/2018 10:20 [place], [place] Richard, [facility] Incoming Radiology Results From [facility] - 12/04/2018 10:22 AM EDT Patient Name: JACY CARROLL ---Diagnostic Radiology--- Exam Date/Time 12/04/2018 10:13:44 EDT Exam CR Spine Cervical 2 or 3 Views Ordering Physician MD MORRIS GREGORY M Accession Number [id number] CPT4 Codes 25788 () Reason For Exam Neck pain Report Cervical spine: 12/04/2018. Clinical information: Neck pain. Findings: AP, lateral, and open-mouth views of the cervical spine reveal all 7 cervical vertebrae. The heights of the cervical vertebral bodies and intervertebral disc spaces are maintained. The alignment is anatomic. No retropharyngeal soft tissue swelling is seen. Impression: No acute process. Report Dictated on --- Final --- Dictated: 12/04/2018 10:20 am Dictating Physician: MD JUNG RISA Signed Date and Time: 12/04/2018 10:21 am Signed by: MD JUNG RISA Transcribed Date and Time: 12/04/2018 10:20 [place], [place] No Panel Information [facility] Vital Signs Date Time Vital Sign Value Performing Clinician Facility 04-15-2023 12:40-0500 Body height 160 cm Riki Slabaugh PA-C Work Phone: [facility] 04-15-2023 12:40-0500 Body temperature 97.81 [degF] Riki Slabaugh PA-C Work Phone: [facility] 04-15-2023 12:40-0500 Body weight 70.3 kg Riki Slabaugh PA-C Work Phone: [facility] 04-15-2023 12:40-0500 Diastolic blood pressure 66 mm[Hg] Riki Slabaugh PA-C Work Phone: [facility] 04-15-2023 12:40-0500 Heart rate 72 /min Riki Slabaugh PA-C Work Phone: [facility] 04-15-2023 12:40-0500 Respiratory rate 18 /min Riki Slabaugh PA-C Work Phone: [facility] 04-15-2023 12:40-0500 SaO2% (BldA) [Mass fraction] 95 % Riki Slabaugh PA-C Work Phone: [facility] 04-15-2023 12:40-0500 Systolic blood pressure 107 mm[Hg] Riki Slabaugh PA-C Work Phone: [facility] 02-16-2023 13:56-0500 Body height 160 cm Lennie Collado PROJECT CONTROLLER.CERTIFIED ORTHOTIC FITTER Work Phone: [facility] 02-16-2023 13:56-0500 Body weight 69.4 kg Lennie Collado PROJECT CONTROLLER.CERTIFIED ORTHOTIC FITTER Work Phone: [facility] 02-16-2023 13:56-0500 Diastolic blood pressure 76 mm[Hg] Lennie Klutts PROJECT CONTROLLER.CERTIFIED ORTHOTIC FITTER Work Phone: [facility] 02-16-2023 13:56-0500 Systolic blood pressure 106 mm[Hg] Lennie Klutts PROJECT CONTROLLER.CERTIFIED ORTHOTIC FITTER Work Phone: [facility] 12-11-2022 15:16-0400 Body height 160 cm Judit Jackson PROJECT CONTROLLER.CERTIFIED ORTHOTIC FITTER Work Phone: [facility] 12-11-2022 15:16-0400 Body weight 68.72 kg Judit Jackson PROJECT CONTROLLER.CERTIFIED ORTHOTIC FITTER Work Phone: [facility] 12-11-2022 15:16-0400 Diastolic blood pressure 60 mm[Hg] Judit Jackson PROJECT CONTROLLER.CERTIFIED ORTHOTIC FITTER Work Phone: [facility] 12-11-2022 15:16-0400 Heart rate 63 /min Judit Jackson PROJECT CONTROLLER.CERTIFIED ORTHOTIC FITTER Work Phone: [facility] 12-11-2022 15:16-0400 Respiratory rate 16 /min Judit Jackson PROJECT CONTROLLER.CERTIFIED ORTHOTIC FITTER Work Phone: [facility] 12-11-2022 15:16-0400 SaO2% (BldA) [Mass fraction] 98 % Judit Jackson PROJECT CONTROLLER.CERTIFIED ORTHOTIC FITTER Work Phone: [facility] 12-11-2022 15:16-0400 Systolic blood pressure 95 mm[Hg] Judit Jackson PROJECT CONTROLLER.CERTIFIED ORTHOTIC FITTER Work Phone: [facility] 08-23-2022 15:52-0400 Body height 160 cm Delfina Page DO Work Phone: [facility] 08-23-2022 15:52-0400 Body weight 68.04 kg Delfina Page DO Work Phone: [facility] 08-23-2022 15:52-0400 Diastolic blood pressure 72 mm[Hg] Delfina Page DO Work Phone: [facility] 08-23-2022 15:52-0400 Systolic blood pressure 105 mm[Hg] Delfina Page DO Work Phone: [facility] 06-23-2022 07:38-0400 Body height 160 cm Lennie Klutts PROJECT CONTROLLER.CERTIFIED ORTHOTIC FITTER Work Phone: [facility] 06-23-2022 07:38-0400 Body weight 66.95 kg Lennie Klutts PROJECT CONTROLLER.CERTIFIED ORTHOTIC FITTER Work Phone: [facility] 06-23-2022 07:38-0400 Diastolic blood pressure 68 mm[Hg] Lennie Klutts PROJECT CONTROLLER.CERTIFIED ORTHOTIC FITTER Work Phone: [facility] 06-23-2022 07:38-0400 Systolic blood pressure 108 mm[Hg] Lennie Klutts PROJECT CONTROLLER.CERTIFIED ORTHOTIC FITTER Work Phone: [facility] 05-08-2022 10:41-0500 Body height 160 cm Lennie Klutts PROJECT CONTROLLER.CERTIFIED ORTHOTIC FITTER Work Phone: [facility] 05-08-2022 10:41-0500 Body weight 69.85 kg Lennie Klutts PROJECT CONTROLLER.CERTIFIED ORTHOTIC FITTER Work Phone: [facility] 05-08-2022 10:41-0500 Diastolic blood pressure 77 mm[Hg] Lennie Klutts PROJECT CONTROLLER.CERTIFIED ORTHOTIC FITTER Work Phone: [facility] 05-08-2022 10:41-0500 Heart rate 80 /min Lennie Klutts PROJECT CONTROLLER.CERTIFIED ORTHOTIC FITTER Work Phone: [facility] 05-08-2022 10:41-0500 Systolic blood pressure 142 mm[Hg] Lennie Klutts PROJECT CONTROLLER.CERTIFIED ORTHOTIC FITTER Work Phone: [facility] 12-15-2021 11:17-0400 Diastolic blood pressure 63 mm[Hg] Hay Dodge MD Work Phone: [facility] 12-15-2021 11:17-0400 Heart rate 62 /min Hay Dodge MD Work Phone: [facility] 12-15-2021 11:17-0400 Respiratory rate 18 /min Hay Dodge MD Work Phone: [facility] [employer] 12-15-2021 11:17-0400 Systolic blood pressure 108 mm[Hg] Hay Dodge MD Work Phone: [facility] [employer] 12-15-2021 08:46-0400 Body height 160 cm Hay Dodge MD Work Phone: [facility] [employer] 12-15-2021 08:46-0400 Body mass index (BMI) [Ratio] 28.34 kg/m2 Hay Dodge MD Work Phone: [facility] [employer] 12-15-2021 08:46-0400 Body weight 72.58 kg Hay Dodge MD Work Phone: [facility] [employer] 12-15-2021 08:34-0400 Body temperature 97.9 [degF] Hay Dodge MD Work Phone: [facility] [employer] 12-15-2021 08:34-0400 SaO2% (BldA) [Mass fraction] 99 % Hay Dodge MD Work Phone: [facility] [employer] 10-18-2021 08:13-0400 Body height 160 cm William Lewis MD Work Phone: [facility] 10-18-2021 08:13-0400 Body mass index (BMI) [Ratio] 27.99 kg/m2 William Lewis MD Work Phone: [facility] 10-18-2021 08:13-0400 Body temperature 97.5 [degF] William Lewis MD Work Phone: [facility] 10-18-2021 08:13-0400 Body weight 71.67 kg William Lewis MD Work Phone: [facility] 10-18-2021 08:13-0400 Diastolic blood pressure 78 mm[Hg] William Lewis MD Work Phone: [facility] 10-18-2021 08:13-0400 Heart rate 89 /min William Lewis MD Work Phone: [facility] 10-18-2021 08:13-0400 Respiratory rate 16 /min William Lewis MD Work Phone: [facility] 10-18-2021 08:13-0400 SaO2% (BldA) [Mass fraction] 99 % William Lewis MD Work Phone: [facility] 10-18-2021 08:13-0400 Systolic blood pressure 119 mm[Hg] William Lewis MD Work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 Pneumococcal Vaccine: Pediatrics (0 to 5 Years) and At-Risk Patients (6 to 64 Years) (1 - PCV) [facility] Start: 1994 COVID-19 VACCINE (#1) COVID-19 VACCI NE (#1) [facility] Start: 1994 COVID-19 VACCINE (1) COVID-19 VACCIN E (1) [facility] Start: 1990 MMR Vaccines (1 of 1 - Standard series) MMR Vaccines (1 of 1 - Standard series) [facility] Start: 1990 Varicella vaccination Varicell a Vaccines (1 of 2 - 2-dose childhood series) [facility] Start: 1990 Varicella vaccine (1 of 2 - 2-dose childhood series) Varicella vaccine (1 of 2 - 2-dose childhood series) [facility] Start: 1989 COVID-19 Vaccine (#1) COVID-19 Vacci ne (#1) [facility] Start: 1989 HEPATITIS B (1 of 3 - 3-dose series) HEPATITIS B (1 of 3 - 3-dose series) [facility] Start: 1989 Hepatitis B Vaccine (1 of 3 - 3-dose series) Hepatitis B Vaccine (1 of 3 - 3-dose series) [facility] Start: 1989 Hepatitis B Vaccines (1 of 3 - 3-dose series) Hepatitis B Vaccines (1 of 3 - 3-dose series) [facility] Start: 1989 Hepatitis C screening Hepatitis C sc reen [facility] Work Phone: Start: 1989 HIV screening HIV Screening Joseph Quarles alth Bacteria identified in Urine by Culture URINE CULTURE Microbiology Routine Dysuria 08/23/2022 4:11 PM EDT [facility] Work Phone: End: 04-30-2019 Blood glucose - POCT Blood glucose - POCT Point of Care Testing STAT One Time for 1 Occurrences starting 04/30/2019 until 04/30/2019 [facility] Work Phone: Comment on above: One Time for 1 Occur rences starting 04/30/2019 until 04/30/2019 Chlamydia trachomatis+Neisseria gonorrhoeae DNA [Presence] in Unspecified specimen by SALO with probe detection GC/CHLAMYDIA DNA DET Lab Routine Encounter for screening examination for sexually transmitted disease 08/23/2022 4:36 PM EDT [facility] Work Phone: Chlamydia trachomatis+Neisseria gonorrhoeae DNA [Presence] in Urine by SALO with probe detection GC/CHLAMYDIA AMPLIF, URINE Microbiology Routine Screen for STD (sexually transmitted disease) Ordered: 05/08/2022 [facility] Work Phone: Comment on above: Ordered: 05/08/2022 COVID & INFLUENZA A/ B & RSV NAAT, ROUTINE COVID & INFLUENZA A/B & RSV NAAT, ROUTINE Microbiology Routine URI with cough and congestion Ordered: 04/15/2023 [facility] Work Phone: Comment on above: Ordered: 04/15/2023 End: 02-09-2020 COVID-19 COVID-19 Lab Routine One Time for 1 Occurrences starting 02/09/2020 until 02/09/2020 [place] Comment on above: One Time for 1 Occur rences starting 02/09/2020 until 02/09/2020 COVID-19 COVID-19 Lab STA T 02/09/2020 9:59 PM EST [facility] [place] End: 04-30-2019 Creatinine [Mass/Vol] Creatinine, serum Lab STAT One Time for 1 Occurrences starting 04/30/2019 until 04/30/2019 [facility] Work Phone: Comment on above: One Time for 1 Occur rences starting 04/30/2019 until 04/30/2019 End: 10-08-2020 Creatinine [Mass/volume] in Serum or Plasma Creatinine, serum Lab STAT One Time for 1 Occurrences starting 10/08/2020 until 10/08/2020 [employer] [facility] Work Phone: Comment on above: One Time for 1 Occur rences starting 10/08/2020 until 10/08/2020 EKG 12 Lead EKG 12 Lead ECG STAT 12/15/2021 9:43 AM EDT [facility] Work Phone: FUNGAL SMEAR FUNGAL SMEAR Microbiology Routine Encounter for screening examination for sexually transmitted disease 08/23/2022 4:36 PM EDT [facility] Work Phone: Incentive spirometry Incentive s pirometry Respiratory Care Routine Q1H PRN until discontinued starting 04/30/2019 [employer] Work Phone: Comment on above: Q1H PRN until discon tinued starting 04/30/2019 Initiate Oxygen Ther apy Protocol Initiate Oxygen Therapy Protocol Respiratory Care Routine Daily until discontinued starting 04/30/2019 [employer] Work Phone: Comment on above: Daily until disconti nued starting 04/30/2019 End: 10-08-2020 Intermittent pulse oximetry Pulse Oximetry Spot Check Respiratory Care Routine One Time for 1 Occurrences starting 10/08/2020 until 10/08/2020 [employer] Work Phone: Comment on above: One Time for 1 Occur rences starting 10/08/2020 until 10/08/2020 End: 06-07-2023 MYNOR SCREENING W [facility] MYNOR SCREENING [facility] Radiology Routine Encounter for screening mammogram for breast cancer Family history of malignant neoplasm of breast 1 Occurrences starting 05/08/2022 until 06/07/2023 [facility] Work Phone: Comment on above: 1 Occurrences starti ng 05/08/2022 until 06/07/2023 End: 05-11-2022 MYNOR SCREENING W [facility]MPHREY [facility] Work Phone: Comment on above: 1 Occurrences starti ng 05/11/2022 until 05/11/2022 Nasal Cannula Oxygen Nasal Cannu la Oxygen Respiratory Care Routine As Needed until discontinued starting 10/08/2020 [facility] Work Phone: Comment on above: As Needed until disc ontinued starting 10/08/2020 Nonrebreather mask oxygen Nonrebreather mask oxygen Respiratory Care Routine As Needed until discontinued starting 10/08/2020 [facility] Work Phone: Comment on above: As Needed until disc ontinued starting 10/08/2020 OB UA DIP B/O (AG) OB UA DIP B/O (AG) Lab Routine Dysuria Ordered: 08/23/2022 [facility] Work Phone: Comment on above: Ordered: 08/23/2022 Oxygen therapy [[facility] Data Set] [facility] Work Phone: Comment on above: As Needed until disc ontinued starting 10/08/2020 Daily until disconti nued starting 10/08/2020 PAP FLUID CERVICAL SCREENING PAP FLUID CERVICAL SCREENING Lab Today Screening for cervical cancer Encounter for screening for human papillomavirus (HPV) Ordered: 05/08/2022 [facility] Work Phone: Comment on above: Ordered: 05/08/2022 Phase I & II - meter ed glucose [facility] Work Phone: Comment on above: As Needed until disc ontinued starting 04/30/2019 As Needed until disc ontinued starting 10/08/2020 End: 04-30-2019 Potassium w/ Reflex to Magnesium Potassium w/ Reflex to Magnesium Lab Routine One Time for 1 Occurrences starting 04/30/2019 until 04/30/2019 [facility] Work Phone: Comment on above: One Time for 1 Occur rences starting 04/30/2019 until 04/30/2019 End: 10-08-2020 Potassium w/ Reflex to Magnesium Potassium w/ Reflex to Magnesium Lab Routine One Time for 1 Occurrences starting 10/08/2020 until 10/08/2020 [facility] Work Phone: Comment on above: One Time for 1 Occur rences starting 10/08/2020 until 10/08/2020 End: 04-30-2019 , urine , urine Lab Routine One Time for 1 Occurrences starting 04/30/2019 until 04/30/2019 [facility] Work Phone: Comment on above: One Time for 1 Occur rences starting 04/30/2019 until 04/30/2019 End: 04-30-2019 Protime-INR Protime-INR Lab STAT One Time for 1 Occurrences starting 04/30/2019 until 04/30/2019 [facility] Work Phone: Comment on above: One Time for 1 Occur rences starting 04/30/2019 until 04/30/2019 End: 10-08-2020 Protime-INR Protime-INR Lab STAT One Time for 1 Occurrences starting 10/08/2020 until 10/08/2020 [facility] Work Phone: Comment on above: One Time for 1 Occur rences starting 10/08/2020 until 10/08/2020 End: 04-30-2019 Pulse Oximetry Spot Check Pulse Oximetry Spot Check Respiratory Care Routine One Time for 1 Occurrences starting 04/30/2019 until 04/30/2019 [facility] Work Phone: Comment on above: One Time for 1 Occur rences starting 04/30/2019 until 04/30/2019 Spirometry panel Incentive mary metry Respiratory Care Routine Q1H PRN until discontinued starting 10/08/2020 [facility] Work Phone: Comment on above: Q1H PRN until discon tinued starting 10/08/2020 End: 04-30-2019 Surgical Pathology Surgical Pathology Lab Routine Once for 1 Occurrences starting 04/30/2019 until 04/30/2019 [facility] Work Phone: Comment on above: Once for 1 Occurrenc es starting 04/30/2019 until 04/30/2019 Surgical Pathology Surgical Path ology Lab Routine 04/30/2019 12:23 PM EST [facility] Work Phone: T VAGINALIS AMPLIFICATION T VAGINALIS AMPLIFICATION Lab Routine Screen for STD (sexually transmitted disease) Ordered: 05/08/2022 [facility] Work Phone: Comment on above: Ordered: 05/08/2022 [facility] Payers Date Payer Category Payer Unknown [id number] 2024 Other [facility] [employer] [facility] [id number] 2024 Unknown [id number] 2022 Self-pay 2022 Medicaid [employer] [id number] 2022-Present [phone] [address] [place] [address] Medicaid [id number] 2022 Unknown [id number] 2022 Medicaid HMO [employer] [id number] 2021 Commercial Managed C are - PPO [employer] PPO [id number] 2021 Private Health Insurance [id number] 2020 Unknown [id number] 2018 Unknown MMO MMO [employer] PPO [id number] 2018-Present [phone] [address] [place] [address] PPO [id number] 2018 Unknown [employer] [facility] MEDICAID xxxxxxxxxxx 2018-Present [phone] CLAIMS DEPARTMENT [address] [place] [address] xxxxxxxxxxx [id number] 2018 Unknown [id number] 2014 Private Health Insurance [id number] 2014 Unknown [id number] 1989 Unknown [id number]. 2.204 Unknown [id number] [id number] Unknown [id number] 2.462 Unknown [id number] [id number]. 2.462 Unknown [id number] [id number]. 2.462 Unknown [id number] [id number]. 2.462 Unknown [id number] [id number]. 2.462 Unknown [id number] 2.462 Social History Date Type Detail Facility Start: 08-01-2018 End: 11-10-2021 Tobacco smoking status NHIS Never smoker [facility] Start: 1990 [facility] Start: 04-25-2019 End: 12-15-2021 Alcohol intake Current drinker of alcohol (finding) [facility] Work Phone: Start: 02-09-2020 End: 11-10-2021 [facility] exposure [facility] Start: 10-07-2020 End: 12-15-2021 Alcohol intake [facility] Start: 1990 Sex Assigned At Female S [facility] Work Phone: Start: 10-08-2021 End: 10-18-2021 Exposure to SARS-CoV-2 (event) Not sure [facility] Start: 10-22-2017 History SDOH Alcohol Comment Socially [facility] Tobacco smoking stat us PRIS Tobacco smoking consumption unknown [facility] Start: 07-12-2021 History SDOH Financial 3 [facility] Work Phone: Start: 07-12-2021 History SDOH Food Worry 1 [facility] Work Phone: Start: 12-15-2021 End: 08-23-2022 Tobacco use panel [facility] PHQ2 Score 0 [facility] Start: 05-27-2020 Gender identity Identifies as female gender (finding) [facility] Start: 05-27-2020 Sexual orientation Heterosexual (fin ding) [facility] Start: 04-23-2022 End: 05-03-2022 Exposure to SARS-CoV-2 (event) Unable to assess [facility] Start: 10-17-2021 Sex Female (finding) [facility] Clinical Notes 10-07-2020 to 03-18-2024 Telephone Encounter - Rell Galeano - 03/18/2024 10:21 AM ESTTelephone Encounter - Rell Galeano - 03/18/2024 10:21 AM ESTTelephone Encounter - Gogo Grande PA-C - 03/18/2024 9:36 AM EST Note Date & Type Note Facility 03-18-2024 Telephone encounter Note Lvm to schedule 3 month follow up with Jessica. Rell Galeano [facility] 03-18-2024 Miscellaneous Notes Lvm to schedule 3 month follow up with Jessica. Rell Galeano Needs follow up in a few months. documented in this encounter [facility] 03-18-2024 Telephone encounter Note Needs follow up in a few months. [facility] 03-18-2024 Note HNO ID: [id number] Author: GOGO GRANDE PA-C Service: ? Author Type: Physician Health Educator Type: Progress Notes Filed: 03/18/2024 11:49 Note Text: GASTROENTEROLOGY NEW PATIENT VIRTUAL VISIT Patient consented to this visit being virtual and understands there are limitations inherent in this type of visit. I have communicated my name and active licensure. The patient's identity and physical location were verified at the time of this visit. Either the patient or their legal insurance representative has been informed of the risks and benefits of -- and alternatives to -- treatment through a remote evaluation and consents to proceed with the evaluation remotely. This is a virtual visit using [employer] Video Visit. It required patient-provider interaction for the medical decision making as documented below. CC: epigastric pain HPI: Jacy Carroll is a 33 year old female who presents for epigastric pain. Had EGD which showed mild chronic inflammation. Has had symptoms for 6 months. Has tried Pepcid. Currently on Zofran. If she does not take the Zofran she will get sick. Has hx of stomach ulcer - states it was found on imaging. Pain in abdomen can move to the LLQ. Carafate and omeprazole did not help. Does have vomiting as well. States sugar upsets her stomach- makes her feel she will vomit. NSAID use: none Unexplained weight loss: stable. On Wegovy- this was around time her symptoms started. Take Blood thinners: none Bowel Habits: EOD. Does have issues going. Will take stool softeners- this may actually be dulcolax. Does help. EGD: 10-30-23- negative for h pylori. Fam Hx: Colon cancer - positive- Uncle passed at 45 from colon cancer (M). Current Outpatient Medications Medication Sig fluconazole (DIFLUCAN) 150 mg tablet Take 1 tablet by mouth one time a week. repeat if needed in one week semaglutide, weight loss, (WEGOVY) 0.5 mg/0.5 mL pen injector Inject 0.5 mg subcutaneously one time a week. phentermine HCl (ADIPEX-P ORAL) (Patient not taking: Reported on 07/07/2023) mupirocin (BACTROBAN) 2 % ointment Apply to affected area three times a day. FLUoxetine HCl 20 mg tablet No current facility-administered medications for this visit. PAST MEDICAL HISTORY Diagnosis Date Psychiatric disorder anxiety /depression PAST SURGICAL HISTORY Procedure Laterality Date KNEE SURGERY HX Left scope PAST SURGICAL HISTORY OF 06/23/2022 kyleena IUD insertion SKIN SURGERY HX cyst from groin FAMILY HISTORY Problem Relation Age of Onset Stroke Mother Arthritis Maternal Grandmother rumatoid Arthritis Maternal Grandfather rumatoid Heart Failure Paternal Grandmother Heart Failure Paternal Grandfather Social History Tobacco Use Smoking status: Never Smokeless tobacco: Never Vaping Use Vaping status: Never Used Substance Use Topics Alcohol use: Yes Comment: Socially Drug use: No ALLERGIES Allergen Reactions Penicillin Other: See Comments Throat closes GI SPECIFIC ROS: Difficulty swallowing / foods sticking in throat: No Heartburn: Yes Regurgitation: Yes- Pepcid doesn't help Chest pain: No Filling up quickly at meals: Yes Loss of appetite: Yes Nausea: Yes Vomiting: Yes Abdominal pain: Yes Recent change in bowel movements: No Bloody or black, bowel movements: No Constipation: Yes Diarrhea: No PHYSICAL EXAMINATION: No physical exam was performed due to this visit being performed virtually to decrease exposure to Covid 19. Patient was awake, alert, oriented, was able to speak clearly and answer questions. Patient did not seem to be in any distress. Patient appeared comfortable and was sitting and moving around comfortably. ASSESSMENT AND PLAN: Impression: This is a 33 year old female who presents via MyChart for epigastric pain, nausea, history of stomach ulcer, constipation, and vomiting. The patient states that the symptoms have been ongoing. She has tried omeprazole in the past. The patient is going to start Protonix once daily prior to breakfast. She will also start taking MiraLAX once daily to see if this helps with her bowel movements. Will follow up in a month or so. ASSESSMENT/PLAN: 1. Constipation, unspecified constipation type - ICD9: 564.00, ICD10: K59.00 (primary diagnosis) 2. Epigastric pain - ICD9: 789.06, ICD10: R10.13 3. Gastroesophageal reflux disease, unspecified whether esophagitis present - ICD9: 530.81, ICD10: K21.9 4. History of gastric ulcer - ICD9: V12.79, ICD10: Z87.11 5. Nausea and vomiting, unspecified vomiting type - ICD9: 787.01, ICD10: R11.2 6. Family history of colon cancer - ICD9: V16.0, ICD10: Z80.0 Gogo Grande PA-C I spent a total of 36 minutes on the date of the service which included preparing to see the patient, completing clinical documentation, counseling and educating the patient/family/caregiver, and ordering medications, tests, or procedures. Thi (more content not included)... [facility] 03-18-2024 History of Presen t illness Narrative GASTROENTEROLOGY NEW PATIENT VIRTUAL VISIT Patient consented to this visit being virtual and understands there are limitations inherent in this type of visit. I have communicated my name and active licensure. The patient's identity and physical location were verified at the time of this visit. Either the patient or their legal insurance representative has been informed of the risks and benefits of -- and alternatives to -- treatment through a remote evaluation and consents to proceed with the evaluation remotely. This is a virtual visit using [employer] Video Visit. It required patient-provider interaction for the medical decision making as documented below. CC: epigastric pain HPI: Jacy Carroll is a 33 year old female who presents for epigastric pain. Had EGD which showed mild chronic inflammation. Has had symptoms for 6 months. Has tried Pepcid. Currently on Zofran. If she does not take the Zofran she will get sick. Has hx of stomach ulcer - states it was found on imaging. Pain in abdomen can move to the LLQ. Carafate and omeprazole did not help. Does have vomiting as well. States sugar upsets her stomach- makes her feel she will vomit. NSAID use: none Unexplained weight loss: stable. On Wegovy- this was around time her symptoms started. Take Blood thinners: none Bowel Habits: EOD. Does have issues going. Will take stool softeners- this may actually be dulcolax. Does help. EGD: 10-30-23- negative for h pylori. Fam Hx: Colon cancer - positive- Uncle passed at 45 from colon cancer (M). Current Outpatient Medications Medication Sig fluconazole (DIFLUCAN) 150 mg tablet Take 1 tablet by mouth one time a week. repeat if needed in one week semaglutide, weight loss, (WEGOVY) 0.5 mg/0.5 mL pen injector Inject 0.5 mg subcutaneously one time a week. phentermine HCl (ADIPEX-P ORAL) (Patient not taking: Reported on 07/07/2023) mupirocin (BACTROBAN) 2 % ointment Apply to affected area three times a day. FLUoxetine HCl 20 mg tablet No current facility-administered medications for this visit. PAST MEDICAL HISTORY Diagnosis Date Psychiatric disorder anxiety /depression PAST SURGICAL HISTORY Procedure Laterality Date KNEE SURGERY HX Left scope PAST SURGICAL HISTORY OF 06/23/2022 kyleena IUD insertion SKIN SURGERY HX cyst from groin FAMILY HISTORY Problem Relation Age of Onset Stroke Mother Arthritis Maternal Grandmother rumatoid Arthritis Maternal Grandfather rumatoid Heart Failure Paternal Grandmother Heart Failure Paternal Grandfather Social History Tobacco Use Smoking status: Never Smokeless tobacco: Never Vaping Use Vaping status: Never Used Substance Use Topics Alcohol use: Yes Comment: Socially Drug use: No ALLERGIES Allergen Reactions Penicillin Other: See Comments Throat closes GI SPECIFIC ROS: Difficulty swallowing / foods sticking in throat: No Heartburn: Yes Regurgitation: Yes- Pepcid doesn't help Chest pain: No Filling up quickly at meals: Yes Loss of appetite: Yes Nausea: Yes Vomiting: Yes Abdominal pain: Yes Recent change in bowel movements: No Bloody or black, bowel movements: No Constipation: Yes Diarrhea: No PHYSICAL EXAMINATION: No physical exam was performed due to this visit being performed virtually to decrease exposure to Covid 19. Patient was awake, alert, oriented, was able to speak clearly and answer questions. Patient did not seem to be in any distress. Patient appeared comfortable and was sitting and moving around comfortably. ASSESSMENT AND PLAN: Impression: This is a 33 year old female who presents via MyChart for epigastric pain, nausea, history of stomach ulcer, constipation, and vomiting. The patient states that the symptoms have been ongoing. She has tried omeprazole in the past. The patient is going to start Protonix once daily prior to breakfast. She will also start taking MiraLAX once daily to see if this helps with her bowel movements. Will follow up in a month or so. ASSESSMENT/PLAN: 1. Constipation, unspecified constipation type - ICD9: 564.00, ICD10: K59.00 (primary diagnosis) 2. Epigastric pain - ICD9: 789.06, ICD10: R10.13 3. Gastroesophageal reflux disease, unspecified whether esophagitis present - ICD9: 530.81, ICD10: K21.9 4. History of gastric ulcer - ICD9: V12.79, ICD10: Z87.11 5. Nausea and vomiting, unspecified vomiting type - ICD9: 787.01, ICD10: R11.2 6. Family history of colon cancer - ICD9: V16.0, ICD10: Z80.0 Gogo Grande PA-C I spent a total of 36 minutes on the date of the service which included preparing to see the patient, completing clinical documentation, counseling and educating the patient/family/caregiver, and ordering medications, tests, or procedures. This note was partially generated using [employer] voice recognition system, and there may be some incorrect words, spellings, and punctuation that were not noted in checking the note before saving. documented in this encounter [facility] 01-18-2024 Miscellaneous Notes Pt. Update 01.18.24- Gastro call left message Note: epigastric pain documented in this encounter [facility] 01-18-2024 Telephone encounter Note Pt. Update 01.18.24- Gastro call left message Note: epigastric pain [facility] 10-30-2023 Note [facility] Medical Records Department [address] [place] [address] History Physical Exam 10/30/23 0905 MR#: [id number] Acct: [id number] Name: JACY CARROLL Rep #: [id number] : 1990 33 From: Percy Mccauley MD PCP: Dr. Karen Gupta MD Status:[facility] Location: [place] [address] History and Physical Date of Admission: 10/30/23 Intake Vital Signs 09/17/2407:16 Height 5 ft 3 in Weight: 135 lb 6 oz BMI 24.0 BP 93/61 Blood Pressure Location Rt brachial Position Sitting Respiration 18 Pulse 55 L Pulse Source Monitor Temp 97.2 F L Temp Source Temporal Pulse Oximetry (%) 98 Oxygen Delivery Method room air Intake Visit Reasons: ABDOMINAL PAIN Chief Complaint: abdominal pain Chronic Specialist Required: No Is patient in pain?: Yes (constant abdominal pain ) Allergies Penicillins Allergy (Severe, Verified 09/17/23 08:17) Angioedema Medications ???Medication ???Instructions ???Recorded ???Confirmed ???Type fluoxetine 40 mg capsule 40 mg PO DAILY 08/21/23 09/17/23 History ondansetron HCl 4 mg tablet 4 mg PO Q8H 08/21/23 09/17/23 History semaglutide (weight loss) 1 mg/0.5 1 mg subcut QWEEK 08/21/23 09/17/23 History mL subcutaneous pen injector omeprazole 40 mg capsule,delayed 40 mg PO DAILY #60 caps 09/17/23 09/17/23 Rx release Have you fallen in the past year?: No PFSH Family History (Updated 09/17/23 @ 08:16 by Mariola Wynn LPN) Uncle Colon cancer HPI HPI HPI: Patient is a 33-year-old female who reports both upper epigastric pain and lower abdominal pain. She reports the pain does not have any new eating. She says it comes and goes. She said that she also did recently have black tarry stools and coffee-ground emesis. ROS General General: Yes weight change (loss) and fatigue; No appetite, colon cancer, breast cancer or weakness HEENT HEENT: Yes swollen glands; No difficulty swallowing, eye injury, eye surgery or hoarseness Endo Endocrine: No thyroid disease, diabetes mellitus, thyroid cancer, Hair loss, heat intolerance or cold intolerance Skin Skin: No rash or changing moles Musc Musculoskeletal: No back problems, arthritis, rheumatoid arthritis, gout or joint pain Cardio Cardiovascular: No murmur, pacemaker, heart disease, atrial fibrillation, high blood pressure, heart attack, heart stent, palpitations, shortness of breat with exertion or chest pain Psych Psychiatric: Yes depression and anxiety; No hearing voices Resp Respiratory: No shortness of breath, No sleep apnea, No cough, No COPD, Yes asthma, No emphysema and No wheezing Additional Details: exercise induced asthma Gastro Gastrointestinal: Yes abdominal pain, Yes nausea or vomiting, Yes diarrhea, Yes constipation, Yes blood in stool, No acid reflux, No hemorrhoids, Yes ulcers, No gallbladder problem and No black,tarry stools [place] Hematologic: No blood thinners, No blood disorders, No bleeding, No anemia and No blood clots Neuro Neurologic: No numbness, No tingling and No weakness Exam Const General: cooperative Orientation: alert and oriented x3 HENMT Head: normal to inspection Neck Neck: normal visual inspection and full ROM Chest Chest palpation inspection: normal inspection of the chest Resp Effort Inspection: normal respiratory effort Auscultation: clear to auscultation bilaterally Cardio Rate: regular rate Rhythm: regular rhythm GI Inspection: non-distended Palpation: soft and nontender Skin General: no rashes or lesions noted Neuro General: patient alert and patient oriented x3 Extrem General: full ROM Psych Appearance: grossly normal Mental Status: mental status grossly normal Assessment and Plan Assessment and Plan (1) Epigastric pain: Status: Acute Plan: Patient is having a lot of epigastric pain and she did have coffee-ground emesis as well as black stools. She was started on Carafate but does not report this helped. I am starting her on a PPI immediately and I will also order a gallbladder ultrasound to ensure that this is not her gallbladder. We will plan for EGD to evaluate the stomach. I explained endoscopy in detail to the patient. I explained the risks including but not limited to stroke or heart attack with anesthesia, perforation of the GI tract, bleeding, infection. I explained that any of these could necessitate further emergency surgery. The patient understands and all questions were answered sufficiently. The patient wishes to proceed with procedure. Percy Mccauley MD Pager: [facility] [address] [place] [address], [address] [place] [address] Office: I have examined the patient and the H P has been reviewed. There are no clinical changes since date of exam (more content not included)... [facility] 07-09-2023 Telephone encounter Note Patient's request for medication is as follows: Requested Prescriptions Pending Prescriptions Disp Refills fluconazole (DIFLUCAN) 150 mg tablet 2 tablet 0 Sig: Take 1 tablet by mouth one time a week. repeat if needed in one week Prescription(s) as above. Please process accordingly. Lennie Collado APRN.CERTIFIED ORTHOTIC FITTER [facility] 07-09-2023 Miscellaneous Notes Patient's request for medication is as follows: Requested Prescriptions Pending Prescriptions Disp Refills fluconazole (DIFLUCAN) 150 mg tablet 2 tablet 0 Sig: Take 1 tablet by mouth one time a week. repeat if needed in one week Prescription(s) as above. Please process accordingly. Lennie Collado APRN.CNP 06.15.23 skin lesion appt Pt calling c/o yeast infection-discharge with itching and irritation. Would like medication sent to pharm. Order pended. Pharm UTD. Gogo Alfaro RN documented in this encounter [facility] 07-09-2023 Telephone encounter Note 06.15.23 skin lesion appt Pt calling c/o yeast infection-discharge with itching and irritation. Would like medication sent to pharm. Order pended. Pharm UTD. Gogo Alfaro RN [facility] 06-27-2023 Miscellaneous Notes I have filed a referral to derm. Please assist pt with scheduling Lennie Collado APRN.CNP documented in this encounter [facility] 04-15-2023 Note HNO ID: [id number] Author: RIKI STEARNS PA-C Service: ? Author Type: Physician Health Educator Type: Progress Notes Filed: 04/15/2023 13:01 Note Text: urgical mask, face shield, N95, and gloves worn for all in-person care. 04/15/2023 Patient presents with: Sinusitis: Sore throat, sinus congestion, bilateral ear drainage, going for 2wks and getting worse, SUBJECTIVE: This is a 33 year old that is here today for concern for URI symptoms. The patient complains of cough and sinus congestion/pressure/drainage x 2 weeks. Denies fever, chills, sweats, or fatigue. Patient denies wheezing, shortness of breath, increased WOB, or chest pain. COVID exposure: none Influenza exposure: none RSV exposure: none Covid Immunization Dates Overdue - Covid-19 Vaccine (1) Never done No completion, postpone, frequency change, or communication history exists for this topic. COVID vaccine this year: none Influenza vaccine this year: none RSV vaccine this year: none Asthma: none Pneumonia: none Tobacco: none Pain on scale of 0-10 with 0 being no pain and 10 being greatest pain: - Nothing makes the symptoms better. Nothing makes them worse. Self-treatment:. none The severity is mild and the symptoms are not improving. The patient did not have a similar problem in the last 3 months. The patient did not take any antibiotics in the last 3 months. Barriers to learning: none. Reviewed meds, OTCs, herbals or supplements. Reviewed allergies, medications, social history, and past medical history. PAST MEDICAL HISTORY Diagnosis Date Psychiatric disorder anxiety /depression ALLERGIES Penicillin MEDICATIONS Current Outpatient Medications Medication Sig FLUoxetine HCl 20 mg tablet doxycycline monohydrate (MONODOX) 100 mg capsule Take 1 capsule by mouth two times a day for 7 days. No current facility-administered medications for this visit. Medications and allergies reviewed by this provider. SOCIAL HISTORY Social History Tobacco Use Smoking status: Never Smokeless tobacco: Never Vaping Use Vaping Use: Never used Substance Use Topics Alcohol use: Yes Comment: Socially Drug use: No REVIEW OF SYSTEMS Review of Systems ROS: constitutional: neg, HENT-sinus symptoms, Eyes- neg, heart-neg, respiratory-Cough, GI-neg, -neg, skin-neg, Allergy- neg, lymph-neg, neuro-neg, psych-neg- All systems neg except as noted above in HPI. OBJECTIVE: BP 107/66 (BP Site: Right Arm, BP Position: Sitting, BP Cuff Size: Regular Adult) Pulse 72 Temp 36.6 ?C (97.8 ?F) (Right Tympanic) Resp 18 Ht 160 cm (5' 3) Wt 70.3 kg (154 lb 15.7 oz) LMP (LMP Unknown) SpO2 95% BMI 27.45 kg/m? . Vital signs reviewed by this provider. Physical Exam Vitals reviewed. Constitutional: General: She is not in acute distress. Appearance: Normal appearance. She is well-developed and normal weight. She is not ill-appearing, toxic-appearing or diaphoretic. HENT: Head: Normocephalic and atraumatic. No right periorbital erythema or left periorbital erythema. Salivary Glands: Right salivary gland is not diffusely enlarged or tender. Left salivary gland is not diffusely enlarged or tender. Right Ear: Ear canal and external ear normal. A middle ear effusion is present. Left Ear: Ear canal and external ear normal. A middle ear effusion is present. Nose: Congestion and rhinorrhea present. Right Sinus: Maxillary sinus tenderness present. No frontal sinus tenderness. Left Sinus: Maxillary sinus tenderness present. No frontal sinus tenderness. Mouth/Throat: Lips: Woodruff. No lesions. Mouth: Mucous membranes are moist. No oral lesions. Dentition: No gum lesions. Tongue: No lesions. Tongue does not deviate from midline. Palate: No mass and lesions. Pharynx: Oropharynx is clear. No pharyngeal swelling, oropharyngeal exudate, posterior oropharyngeal erythema or uvula swelling. Tonsils: No tonsillar exudate or tonsillar abscesses. Eyes: General: Lids are normal. No scleral icterus. Right eye: No discharge. Left eye: No discharge. Extraocular Movements: Extraocular movements intact. Conjunctiva/sclera: Conjunctivae normal. Pupils: Pupils are equal, round, and reactive to light. Pupils are equal. Cardiovascular: Rate and Rhythm: Normal rate and regular rhythm. Heart sounds: Normal heart sounds. Pulmonary: Effort: Pulmonary effort is normal. Breath sounds: Normal breath sounds and air entry. Musculoskeletal: Cervical back: Full passive range of motion without pain. No spinous process tenderness or muscular tenderness. Lymphadenopathy: Head: Right side of head: No submental, submandibular, tonsillar, preauricular or posterior auricular adenopathy. Left side of head: No submental, submandibular, tonsillar, preauricular or posterior auricular adenopathy. Cervical: No cervical adenopathy. Skin: General: Skin is warm. Capillary Refill: Capillary refill takes less (more content not included)... [facility] 04-15-2023 Instructions Riki Stearns PA-C - 04/15/2023 12:53 PM EST ASSESSMENT/PLAN: 1. URI with cough and congestion X 2 weeks - COVID & INFLUENZA A/B & RSV NAAT, ROUTINE - DOXYCYCLINE MONOHYDRATE 100 MG CAPSULE 2. Sore throat - - STREP A MOLECULAR (POC)- negative Encourage fluids, rest. Flonase Zyrtec Tylenol and Motrin for pain and fever Saline Nasil spray, Neti Pot, vaporizer, Vicks. Try Cepocol lozenges or Chloraseptic throat spray. Warm salt water gargles. Cough and deep breath- 10x/hr while awake. May use OTC Mucinex as directed for cough Call PCP if sx worsen or no better. If symptoms worsen, or new symptoms develop go to ER. If you have worsening of breathing or breathing changes- go to ER. If you have persistent fever unrelieved by Tylenol/Motrin- go to the ER. Follow up as needed. Barriers to learning: none. The patient verbalizes understanding and is in agreement with plan of care. This patient encounter involved the screening or treatment of novel coronavirus infection (COVID-19). - Red flags for in person care discussed - All questions answered Riki Stearns PA-C documented in this encounter [facility] 04-15-2023 History of Presen t illness Narrative urgical mask, face shield, N95, and gloves worn for all in-person care. 04/15/2023 Patient presents with: Sinusitis: Sore throat, sinus congestion, bilateral ear drainage, going for 2wks and getting worse, SUBJECTIVE: This is a 33 year old that is here today for concern for URI symptoms. The patient complains of cough and sinus congestion/pressure/drainage x 2 weeks. Denies fever, chills, sweats, or fatigue. Patient denies wheezing, shortness of breath, increased WOB, or chest pain. COVID exposure: none Influenza exposure: none RSV exposure: none Covid Immunization Dates Overdue - Covid-19 Vaccine (1) Never done No completion, postpone, frequency change, or communication history exists for this topic. COVID vaccine this year: none Influenza vaccine this year: none RSV vaccine this year: none Asthma: none Pneumonia: none Tobacco: none Pain on scale of 0-10 with 0 being no pain and 10 being greatest pain: - Nothing makes the symptoms better. Nothing makes them worse. Self-treatment:. none The severity is mild and the symptoms are not improving. The patient did not have a similar problem in the last 3 months. The patient did not take any antibiotics in the last 3 months. Barriers to learning: none. Reviewed meds, OTCs, herbals or supplements. Reviewed allergies, medications, social history, and past medical history. PAST MEDICAL HISTORY Diagnosis Date Psychiatric disorder anxiety /depression ALLERGIES Penicillin MEDICATIONS Current Outpatient Medications Medication Sig FLUoxetine HCl 20 mg tablet doxycycline monohydrate (MONODOX) 100 mg capsule Take 1 capsule by mouth two times a day for 7 days. No current facility-administered medications for this visit. Medications and allergies reviewed by this provider. SOCIAL HISTORY Social History Tobacco Use Smoking status: Never Smokeless tobacco: Never Vaping Use Vaping Use: Never used Substance Use Topics Alcohol use: Yes Comment: Socially Drug use: No REVIEW OF SYSTEMS Review of Systems ROS: constitutional: neg, HENT-sinus symptoms, Eyes- neg, heart-neg, respiratory-Cough, GI-neg, -neg, skin-neg, Allergy- neg, lymph-neg, neuro-neg, psych-neg- All systems neg except as noted above in HPI. OBJECTIVE: BP 107/66 (BP Site: Right Arm, BP Position: Sitting, BP Cuff Size: Regular Adult) Pulse 72 Temp 36.6 C (97.8 F) (Right Tympanic) Resp 18 Ht 160 cm (5' 3) Wt 70.3 kg (154 lb 15.7 oz) LMP (LMP Unknown) SpO2 95% BMI 27.45 kg/m . Vital signs reviewed by this provider. Physical Exam Vitals reviewed. Constitutional: General: She is not in acute distress. Appearance: Normal appearance. She is well-developed and normal weight. She is not ill-appearing, toxic-appearing or diaphoretic. HENT: Head: Normocephalic and atraumatic. No right periorbital erythema or left periorbital erythema. Salivary Glands: Right salivary gland is not diffusely enlarged or tender. Left salivary gland is not diffusely enlarged or tender. Right Ear: Ear canal and external ear normal. A middle ear effusion is present. Left Ear: Ear canal and external ear normal. A middle ear effusion is present. Nose: Congestion and rhinorrhea present. Right Sinus: Maxillary sinus tenderness present. No frontal sinus tenderness. Left Sinus: Maxillary sinus tenderness present. No frontal sinus tenderness. Mouth/Throat: Lips: Woodruff. No lesions. Mouth: Mucous membranes are moist. No oral lesions. Dentition: No gum lesions. Tongue: No lesions. Tongue does not deviate from midline. Palate: No mass and lesions. Pharynx: Oropharynx is clear. No pharyngeal swelling, oropharyngeal exudate, posterior oropharyngeal erythema or uvula swelling. Tonsils: No tonsillar exudate or tonsillar abscesses. Eyes: General: Lids are normal. No scleral icterus. Right eye: No discharge. Left eye: No discharge. Extraocular Movements: Extraocular movements intact. Conjunctiva/sclera: Conjunctivae normal. Pupils: Pupils are equal, round, and reactive to light. Pupils are equal. Cardiovascular: Rate and Rhythm: Normal rate and regular rhythm. Heart sounds: Normal heart sounds. Pulmonary: Effort: Pulmonary effort is normal. Breath sounds: Normal breath sounds and air entry. Musculoskeletal: Cervical back: Full passive range of motion without pain. No spinous process tenderness or muscular tenderness. Lymphadenopathy: Head: Right side of head: No submental, submandibular, tonsillar, preauricular or posterior auricular adenopathy. Left side of head: No submental, submandibular, tonsillar, preauricular or posterior auricular adenopathy. Cervical: No cervical adenopathy. Skin: General: Skin is warm. Capillary Refill: Capillary refill takes less than 2 seconds. Findings: No rash. Neurological: General: No focal deficit present. Mental Status: She is alert and oriented to person, place, and time. Cranial Nerves: No facial asymmetry. Psychiatric: Attention and Perception: Attention normal. Behavior: Behavior is cooperative. Jacy Carroll - Meets symptom-based criteria for testing and is low risk. - Discussed symptom monitoring and supportive care - Red flag symptoms requiring follow up discussed ASSESSMENT/PLAN: 1. URI with cough and congestion - ICD9: 465.9, ICD10: J06.9 (primary diagnosis) X 2 weeks - COVID & INFLUENZA A/B & RSV NAAT, ROUTINE - DOXYCYCLINE MONOHYDRATE 100 MG CAPSULE 2. Sore throat - ICD9: 462, ICD10: J02.9 Per patient request- - STREP A MOLECULAR (POC)- negative Encourage fluids, rest. Flonase Zyrtec Tylenol and Motrin for pain and fever Saline Nasil spray, Neti Pot, vaporizer, Vicks. Try Cepocol lozenges or Chloraseptic throat spray. Warm salt water gargles. Cough and deep breath- 10x/hr while awake. May use OTC Mucinex as directed for cough Call PCP if sx worsen or no better. If symptoms worsen, or new symptoms develop go to ER. If you have worsening of breathing or breathing changes- go to ER. If you have persistent fever unrelieved by Tylenol/Motrin- go to the ER. Follow up as needed. Barriers to learning: none. The patient verbalizes understanding and is in agreement with plan of care. This patient encounter involved the screening or treatment of novel coronavirus infection (COVID-19). - Red flags for in person care discussed - All questions answered Riki Stearns PA-C Medical Decision Making: Problems: Moderate: Acute illness with systemic symptoms Data: Unique test(s) ordered: 2 Risk: Low: Low risk from testing/treatment Moderate: Drug management Medical Decision Making Level: 4 - Moderate I spent a total of 20 minutes on the date of the service which included preparing to see the patient, [id number] patient care, completing clinical documentation, performing a medically appropriate examination, counseling and educating the patient/family/caregiver, ordering medications, tests, or procedures, and communicating results to the patient/family/caregiver. documented in this encounter [facility] 02-16-2023 Procedure note Associated Ord er(s): IUD REMOVAL Post-Procedure Diagnose(s): Encounter for IUD removal IUD REMOVAL PROCEDURE Date/Time: 02/16/2023 2:09 PM Performed by: Kate Bryan APRN.CERTIFIED ORTHOTIC FITTER Authorized by: Kate Bryan APRN.MURRAY Diagnosis: No diagnosis found. Informed Consent Consent Obtained: Written [place] Protocol A moment to CARE was completed. SIGN IN Personnel directly involved with the procedure wore the appropriate PPE. Patient/Surrogate Stated/Verified: Patient name, Date of , Relevant allergies and Intended procedure TIME OUT Intended patient and procedure match the source document(s). Consent documented and matches the intended procedure. No relevant labs, photos, and/or imaging studies were applicable for review. No correct side/site applicable for marking and visibility. No medications required for procedure. No fire risk assessment and interventions applicable. No implant(s) inserted. Procedure Details: IUD removed without difficulty, intact, and patient tolerated procedure well. Post-Procedure Details: Patient tolerated the procedure well with no immediate complications Indication: Unwanted side effects,Vaginal odor, irregular bleeding Comments: IUD came out without issues. Pt had a vasectomy. No need for BCM. Kate Bryan APRN.CERTIFIED ORTHOTIC FITTER documented in this encounter [facility] 12-11-2022 Note HNO ID: [id number] Author: Judit Jackson APRN.CERTIFIED ORTHOTIC FITTER Service: ? Author Type: Nurse Practitioner Type: Progress Notes Filed: 12/11/2022 3:33 PM Note Text: This note was created using [employer]. Subjective Jacy Carroll is a 32 year old female. HPI by patient: Jacy Carroll is a 32 year old presenting to the office with the complaint of right eye irritation Started this morning. Associated symptoms include itching of the eye. Feels she has drainage. Wears contacts, did remove and throw away. Has baseline of light sensitivity. Knows it will get worse, I don't want to have to come back. No headache or dizziness. Denies uri symptoms and fever. Covid Immunization Dates Overdue - Covid-19 Vaccine (1) Overdue - never done No completion, postpone, frequency change, or communication history exists for this topic. Sick contacts: daughter. Smoking history/second hand smoke: none. OTC not used. No antibiotic use in the last 60 days. ALLERGIES Penicillin Other: See Comments Comment:Throat closes Family History Reviewed Including Cardiac Diseases, Psychiatric Diseases, AND Substance Abuse Problem: Stroke Relation: Mother Age of Onset: (Not Specified) Problem: Arthritis Relation: Maternal Grandmother Age of Onset: (Not Specified) Comment: rumatoid Problem: Arthritis Relation: Maternal Grandfather Age of Onset: (Not Specified) Comment: rumatoid Problem: Heart Failure Relation: Paternal Grandmother Age of Onset: (Not Specified) Comment: Problem: Heart Failure Relation: Paternal Grandfather Age of Onset: (Not Specified) Comment: Social History Tobacco Use Smoking status: Never Smokeless tobacco: Never Vaping Use Vaping Use: Never used Alcohol use: Yes Comment: Socially Drug use: No Active Ambulatory Problems No Active Ambulatory Problems Resolved Ambulatory Problems No Resolved Ambulatory Problems Past Medical History: No date: Psychiatric disorder Review of Systems Constitutional: Negative. HENT: Negative. Eyes: Positive for itching. Negative for redness and visual disturbance. Respiratory: Negative. Cardiovascular: Negative. Gastrointestinal: Negative. Endocrine: Negative. Genitourinary: Negative. Musculoskeletal: Negative. Skin: Negative. Neurological: Negative. Hematological: Negative. Objective BP 95/60 Pulse 63 Resp 16 Ht 160 cm (5' 3) Wt 68.7 kg (151 lb 8 oz) LMP 08/09/2022 (Approximate) SpO2 98% BMI 26.84 kg/m? Physical Exam Vitals reviewed. Constitutional: General: She is not in acute distress. Appearance: She is not ill-appearing, toxic-appearing or diaphoretic. HENT: Head: Normocephalic and atraumatic. Right Ear: Tympanic membrane, ear canal and external ear normal. Left Ear: Tympanic membrane, ear canal and external ear normal. Nose: Nose normal. Eyes: Extraocular Movements: Extraocular movements intact. Conjunctiva/sclera: Conjunctivae normal. Pupils: Pupils are equal, round, and reactive to light. Cardiovascular: Rate and Rhythm: Normal rate and regular rhythm. Pulmonary: Effort: Pulmonary effort is normal. Breath sounds: Normal breath sounds. Psychiatric: Behavior: Behavior is cooperative. Assessment and Plan (H57.89) Irritation of right eye (primary encounter diagnosis) Plan: trimethoprim-polymyxin (POLYTRIM) 10,000 unit- 1 mg/mL ophthalmic solution -Polytrim drops. -Wash hands before and after touching the eye. Do not rub the eye. -Warm compress to remove any drainage if there is any. Cool compress for comfort or itchiness. -If you have bacterial conjunctivitis, pink eye, you are contagious for 24 hours after starting drops. No close facial contact during this time. -If you wear contacts dispose of old contacts and open a new pair after treatment is complete; typically after 7 days. -If no improvement in 48 hours please follow up with Ophthalmology -Warning symptoms: sudden loss of vision, sharp eye pain, sudden blurry vision, dizziness. -Be seen immediately with warning symptoms. The patient will pursue further outpatient evaluation with the primary care physician or another Urgent Care/Express Care as outlined in the after visit summary. The patient is agreeable to this plan of care and follow-up instructions have been explained in detail. The patient has received these instructions in written format and have expressed an understanding of the after visit summary. Medical Decision Making: Level: 4 - Moderate I spent a total of 20 minutes on the date of the service which included preparing to see the patient, [id number] patient care, completing clinical documentation, obtaining and/or reviewing separately obtained history, performing a medically appropriate examination, counseling and educating the patient/family/caregiver, and ordering medications, tests, or procedures. [facility] 12-11-2022 Instructions Judit Jackson APRN.MURRAY - 12/11/2022 3:15 PM EDT (H57.89) Irritation of right eye (primary encounter diagnosis) Plan: trimethoprim-polymyxin (POLYTRIM) 10,000 unit- 1 mg/mL ophthalmic solution -Polytrim drops. -Wash hands before and after touching the eye. Do not rub the eye. -Warm compress to remove any drainage if there is any. Cool compress for comfort or itchiness. -If you have bacterial conjunctivitis, pink eye, you are contagious for 24 hours after starting drops. No close facial contact during this time. -If you wear contacts dispose of old contacts and open a new pair after treatment is complete; typically after 7 days. -If no improvement in 48 hours please follow up with Ophthalmology -Warning symptoms: sudden loss of vision, sharp eye pain, sudden blurry vision, dizziness. -Be seen immediately with warning symptoms. documented in this encounter [facility] 12-11-2022 History of Presen t illness Narrative This note was created using [employer]. Subjective Jacy Carroll is a 32 year old female. HPI by patient: Jacy Carroll is a 32 year old presenting to the office with the complaint of right eye irritation Started this morning. Associated symptoms include itching of the eye. Feels she has drainage. Wears contacts, did remove and throw away. Has baseline of light sensitivity. Knows it will get worse, I don't want to have to come back. No headache or dizziness. Denies uri symptoms and fever. Covid Immunization Dates Overdue - Covid-19 Vaccine (1) Overdue - never done No completion, postpone, frequency change, or communication history exists for this topic. Sick contacts: daughter. Smoking history/second hand smoke: none. OTC not used. No antibiotic use in the last 60 days. ALLERGIES Penicillin Other: See Comments Comment:Throat closes Family History Reviewed Including Cardiac Diseases, Psychiatric Diseases, & Substance Abuse Problem: Stroke Relation: Mother Age of Onset: (Not Specified) Problem: Arthritis Relation: Maternal Grandmother Age of Onset: (Not Specified) Comment: rumatoid Problem: Arthritis Relation: Maternal Grandfather Age of Onset: (Not Specified) Comment: rumatoid Problem: Heart Failure Relation: Paternal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 patient.[facility] CenterIn the event this information is protected by the Federal Confidentiality of Alcohol and Drug Abuse Patient Records regulations: The Federal rules restrict any use of the information to criminally investigate or prosecute any alcohol or drug abuse patient.[facility] CenterIn the event this information is protected by the Federal Confidentiality of Alcohol and Drug Abuse Patient Records regulations: The Federal rules restrict any use of the information to criminally investigate or prosecute any alcohol or drug abuse patient.[facility] CenterIn the event this information is protected by the Federal Confidentiality of Alcohol and Drug Abuse Patient Records regulations: The Federal rules restrict any use of the information to criminally investigate or prosecute any alcohol or drug abuse patient.[facility] Teams (unrecognized sec tion and content) Business Sales Consultant Relationship Specialty Start Date End Date Karen Gupta MD [address] [place] [id number] PCP - General Family Medicine 07/12/21 Business Sales Consultant Relationship Specialty Start Date End Date Karen Gupta MD [address] [place] [id number] PCP - General Family Medicine 07/12/21 Business Sales Consultant Relationship Specialty Start Date End Date Karen Gupta [address] [place] [id number] PCP - General Internal Medicine 05/11/22 Business Sales Consultant Relationship Specialty Start Date End Date Karne Gupta [address] [place] [id number] PCP - General Internal Medicine 05/11/22 Business Sales Consultant Relationship Specialty Start Date End Date Karen Gupta MD [address] [place] [id number] PCP - General Internal Medicine 05/11/22 Business Sales Consultant Relationship Specialty Start Date End Date Karen Gupta MD [address] [place] [id number] PCP - General Internal Medicine 05/11/22 Business Sales Consultant Relationship Specialty Start Date End Date Karen Gupta MD [address] [place] [id number] PCP - General Internal Medicine 05/11/22 Business Sales Consultant Relationship Specialty Start Date End Date Karen Gupta MD [address] [place] [id number] PCP - General Internal Medicine 05/11/22 Business Sales Consultant Relationship Specialty [place] [address] [place] [id number] PCP - General Internal Medicine 05/11/22 Business Sales Consultant Relationship Specialty Start Date End Date Karen Gupta MD PCP - General Internal Medicine 05/11/22 Team Status: Active Member Role Status Angela Gupta MD Primary Care Provider Active Team Status: Inactive Member Role Status Angela Gupta MD Primary Care Provide r, Attending Provider, Referring Provider Active Business Sales Consultant Relationship Specialty Start Date End Date Karen Gupta MD PCP - General Internal Medicine 05/11/22 Business Sales Consultant Relationship Specialty Start Date End Date Karen Gupta MD PCP - General Internal Medicine 05/11/22 Business Sales Consultant Relationship Specialty Start Date End Date Karen Gupta MD PCP - General Internal Medicine 05/11/22 Business Sales Consultant Relationship Specialty Start Date End Date Karen Gupta MD PCP - General Internal Medicine 05/11/22 Business Sales Consultant Relationship Specialty Start Date End Date Karen Gupta MD [address] [place] [id number] PCP - General 07/12/21 Business Sales Consultant Relationship Specialty Start Date End Date Karen Gupta MD [address] [place] [id number] PCP - General 07/12/21 Business Sales Consultant Relationship Specialty Start Date End Date Karen Gupta MD [address] [place] [address] PCP - General 07/12/21 Business Sales Consultant Relationship Specialty Start Date End Date Karen Gupta MD PCP - General Internal Medicine 05/11/22 Business Sales Consultant Relationship Specialty Start Date End Date Karen Gupta MD [address] [facility] [address] [place], [place] [phone] PCP - General 07/12/21 Business Sales Consultant Relationship Specialty Start Date End Date Karen Gupta MD [address] [place] [address] [address] [place] [address] PCP - General 07/12/21 Business Sales Consultant Relationship Specialty Start Date End Date Karen Gupta MD [address] [place] [address] [address] [place], [place] [id number] PCP - General 07/12/21 Goals (unrecognized section and content) Goals may be documented in a n alternate section FOR RECORDS PERTAINING TO PATIENTS WHO ARE OR HAVE BEEN ENROLLED IN A CHEMICAL DEPENDENCY/SUBSTANCEABUSE PROGRAM, SOME INFORMATION MAY BE OMITTED. This clinical summary was aggregated from multiple sources. Caution should be exercised in using it in the provision of clinical care. This summary normalizes information from multiple sources, and as a consequence, information in this document may materially change the coding, format and clinical context of patient data. In addition, data may be omitted in some cases. CLINICAL DECISIONS SHOULD BE BASED ON THE PRIMARY CLINICAL RECORDS. [facility]. provides no warranty or guarantee of the accuracy or completeness of information in this document.
== END | disposition home or self-care (01) ==
LOC: MFPLAB 11:14
PROVIDERS: PCP Family Medicine; Visit Provider Family Medicine
DX: N92.0 Excessive and frequent menstruation with regular cycle (principal); T14.8XXA Other injury of unspecified body region, initial encounter; Z13.220 Encounter for screening for lipoid disorders; Z13.1 Encounter for screening for diabetes mellitus; R53.83 Other fatigue; N94.89 Other specified conditions associated with female genital organs and menstrual cycle
CPT/HCPCS: 36415; 80053; 80061; 82306; 82533; 82607; 82728; 83540; 83550; 84439; 84443; 85025

== ENCOUNTER 2024-12-05 13:12 | Outpatient (CLI) | payer OTHER, SELFPAY ==
[2024-12-05 13:20] VITALS: BP 103/51; PULSE 62; RESP 16; TEMP 35.9; O2SAT 100; BMI 22.4
[2024-12-05] MEDS: 0.9% NaCl Peripheral Flush Adult IV (13:27)
[2024-12-05] MEDS: Iron Sucrose Complex (Venofer) 100 MG in 0.9% NaCl 100 ML 420 MG IV (13:27)
[2024-12-05] MEDS: 0.9% NaCl IVPB Med Flush (250 mL) 15 ML IV (13:27)
== END 2024-12-05 23:59 | disposition home or self-care (01) ==
LOC: MEDOUTP 13:12
PROVIDERS: PCP Family Medicine; Referring Provider Family Medicine; Visit Provider Family Medicine
DX: D50.9 Iron deficiency anemia, unspecified (principal)
CPT/HCPCS: 96365; J1756; A4216

== ENCOUNTER 2024-12-23 11:26 | Outpatient (CLI) | payer OTHER, SELFPAY ==
[2024-12-23 11:45] VITALS: BP 105/61; PULSE 60; RESP 16; TEMP 36.3; O2SAT 98; BMI 23.0
[2024-12-23] MEDS: 0.9% NaCl Peripheral Flush Adult IV (11:50)
[2024-12-23] MEDS: 0.9% NaCl IVPB Med Flush (100mL) 15 ML IV (11:50)
[2024-12-23] MEDS: Iron Sucrose Complex (Venofer) 100 MG in 0.9% NaCl 100 ML 420 MG IV (11:54)
[2024-12-23 12:20] VITALS: BP 100/62; PULSE 65
== END 2024-12-23 23:59 | disposition home or self-care (01) ==
LOC: MEDOUTP 11:26
PROVIDERS: PCP Family Medicine; Referring Provider Family Medicine; Visit Provider Family Medicine
DX: D50.9 Iron deficiency anemia, unspecified (principal)
CPT/HCPCS: 96365; J1756; A4216